=== PATIENT | female | born 1955 | race Caucasian/White ===

== ENCOUNTER 2019-07-26 09:59 | Outpatient (CLI) | payer OTHER, SELFPAY ==
--- NOTE | ~2019-07-26 | US_ITS ---
EXAMINATION: US right upper quadrant DATE: 07/26/2019 10:32 INDICATION: Right upper quadrant abdominal pain. TECHNIQUE: Multiple grayscale and Doppler ultrasound images of the abdomen were obtained. COMPARISON: Ultrasound 11/16/2013 FINDINGS: The visualized portions of the head and body of the pancreas are normal. The liver is riana l without focal lesion. There is normal flow in main portal vein. The gallbladder is normal in size. No gallstones or gallbladder wall thickening. There was no sonographic Novak sign. The common duct i s mildly dilated at 7 mm. IMPRESSION: 1. Mildly dilated common duct. Reviewed, dictated and finalized at location A.
== END 2019-07-26 10:00 | disposition home or self-care (01) ==
PROVIDERS: PCP Family Medicine; Visit Provider Family Medicine
DX: R10.11 Right upper quadrant pain (principal)
CPT/HCPCS: 76705

== ENCOUNTER 2019-09-29 19:15 | Emergency (ER) | payer OTHER, SELFPAY ==
--- NOTE | ~2019-09-29 | CT_ITS ---
EXAMINATION: CT BRAIN W/O DATE: 09/29/2019 19:46 INDICATION: Headache. Hypertension. TECHNIQUE: Computed tomography (CT) of the head was performed without intravenous contrast. The dose- length product was 605.33 mGy-cm. The mA was adjusted according to patient size. Iterative reconstruc tion technique was employed. COMPARISON: No prior studies for comparison. FINDINGS: Normal brain parenchymal volume for age. Normal mayorga-white differentiation. No acute intrac ranial hemorrhage, infarction, mass or mass effect. No ventriculomegaly or midline shift. Midline sagittal images demonstrate a normal corpus callosum, c raniovertebral junction and sella turcica. Basilar cisterns are patent. Paranasal sinuses and mastoids are pneumatized. No depressed skull fractures. IMPRESSION: 1. No acute intracranial abnormality. Reviewed, dictated and finalized at location A.
[2019-09-29 19:21] VITALS: BP 153/81; PULSE 78; RESP 18; TEMP 36.3; O2SAT 100
--- NOTE | 2019-09-29 19:36 | ED.RECABL ---
HPI - Recheck/Abnormal Lab/Rx General Chief Complaint: Recheck/Abnormal Lab/Rx Stated Complaint: high blood pressure Time Seen by Provider: 09/29/19 19:30 Source: RN notes reviewed History of Present Illness HPI narrative: Patient presents emergency room from home for hypertension. Patient states that her blood pressures been running high over the last week and had recently been instructed to increase her losartan from 50 mg to 100 mg that she took the last dose of last night and is due for her dose this evening at this time. She states at home this evening she noted that her blood pressure is elevated and she noted a mild headache. She called Dr. Stallworth for Dr. Vázquez who is her it sales representative and had also been given a prescription of amlodipine 5 mg which she is to start tomorrow. Patient denies any vision changes numbness or tingling in the extremities chest pain shortness of breath abdominal pain nausea vomiting or any other symptoms Related Data Allergies Allergy/AdvReac Type Severity Reaction Status Date / Time hydrochlorothiazide Allergy Mild Unknown Verified 09/29/19 19:34 triamterene Allergy Mild Unknown Verified 09/29/19 19:34 Antihistamines - Alkylamine Allergy Unknown Unknown Verified 09/29/19 19:34 cefuroxime Allergy Unknown Unknown Verified 09/29/19 19:34 ciprofloxacin Allergy Unknown Unknown Verified 09/29/19 19:34 codeine Allergy Unknown Nausea and Verified 09/29/19 19:34 Vomiting nitrofurantoin Allergy Unknown Unknown Verified 09/29/19 19:34 Penicillins Allergy Unknown Hives Verified 09/29/19 19:34 Review of Systems Review of Systems: Narrative: Gen.: Denies fevers or chills Eyes: Denies eye pain or visual change ENT: Denies congestion Respiratory: Denies shortness of breath or cough CV: Denies chest pain or palpitations GI: Denies abdominal pain nausea, emesis or diarrhea Musculoskeletal: Denies back pain or muscle pain Neuro: See HPI Skin: Denies rash Except as documented, all other systems reviewed and negative [facility] Past Medical History Medical History (Updated 09/29/19 @ 22:33 by Shakeel Garcia DO) Hypertension Family History Family History (Updated 10/25/13 @ 07:13 by DOCTOR UNKNOWN) Grandparent Carcinoma of colon Family history of lung cancer Mother Family history of congestive heart failure Other Cerebrovascular accident Family history of coronary artery disease Hypertension Social History Social History Smoking status: Former smoker Second hand tobacco smoke exposure: No Alcohol intake: current Exam Narrative: Exam Narrative: APPEARANCE: No acute distress, nontoxic, resting in bed EYES: EOMI HEENT: Normocephalic, atraumatic, OMM RESPIRATORY: No respiratory distress Clear to auscultation bilaterally with no rhonchi wheezing or rales. CARDIOVASCULAR: Regular rate and rhythm without murmurs rubs or gallops. ABDOMINAL: Soft, nontender, nondistended, no rebound or guarding MUSCULOSKELETAl: Moves all extremities. No clubbing, cyanosis or edema. NEURO: Awake and alert x 3. Following commands, speech normal, no focal deficits SKIN:: Warm, dry. No rashes lesions or abrasions PSYCHIATRIC: Normal affect/mood, Course Course Emergency Course: Called and discussed with Dr. Puckett presentation work-up. Sent Dr. 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 Discussed need for follow-up with primary care, proper use of medication, and reasons to return to the emergency department. Patient understands and agrees to current treatmen
[2019-09-29] MEDS: LOSARTAN POTASSIUM 100 MG TABLET PO (20:14)
[2019-09-29 20:29] LABS: Basophils Percent Auto 0.2 % (0.2-1.2); Eosinophils Absolute Auto 0.1 K/mm3 (0-0.3); Eosinophils Percent Auto 1.6 % (0-4.4); Hematocrit 44.4 % (37.0-47.0); Immature Granulocyte Absolute 0.02 K/mm3 (0.00-0.031); Immature Granulocyte Percent A 0.2 % (0-0.5); Lymphocytes Absolute Auto 1.08 K/mm3 (0.9-3.2); Mean Corpuscular HGB Conc 33.8 g/dl (32-36); Mean Corpuscular Hemoglobin 31.6 pg (26-34); Mean Corpuscular Volume 93.7 fl (80-100); Mean Platelet Volume 9.5 fl (7.4-10.4); Monocytes Absolute Auto 0.8 K/mm3 (0.1-0.6); Monocytes Percent Auto 9.6 % (2.6-8.5); Neutrophils Absolute Auto 6.3 K/mm3 (1.3-6.7); Neutrophils Percent Auto 75.4 % (45.5-73.1); Platelet Count Result 181 k/mm3 (150-375); Red Blood Count 4.74 M/mm3 (4.2-5.4); White Blood Count 8.3 K/mm3 (4.5-10.0)
[2019-09-29 20:35] VITALS: BP 175/86; PULSE 63; RESP 18; O2SAT 97
[2019-09-29 20:42] LABS: Alanine Aminotransferase 23 U/L (4-35); Albumin Level 4.4 g/dL (3.5-5.1); Alkaline Phosphatase 81 U/L (38-126); Aspartate Amino Transferase 27 U/L (14-36); Bilirubin,Total 0.5 mg/dL (0.2-1.3); Blood Urea Nitrogen 13 mg/dL (7-17); Calcium 9.6 mg/dL (8.4-10.2); Carbon Dioxide 28 mmol/L (22-30); Chloride 95 mmol/L (98-107); Estimated CRCL calculation 69 ml/min; Estimated Glomerular Filt Rate > 60; Glucose 119 mg/dL (65-105); Sodium 132 mmol/L (137-145)
[2019-09-29 21:17] VITALS: BP 169/79; PULSE 64; RESP 16; O2SAT 97
[2019-09-29 21:17] LABS: Add Urine Microscopic? YES; Appearance Urine Clear (Clear); Bacteria Urine Trace /hpf; Bilirubin Urine Negative (Negative); Blood Urine 1+ (Negative); Color Urine Straw (Yellow); Glucose Urine UA Negative (Negative); Ketones Urine Negative (Negative); Leukocyte Esterase Ur Negative LEU/UL (Negative); Nitrate Urine Negative (Negative); Protein Urine Negative (Negative); RBC Urine 0-2 /hpf (0-2); Specific Grav Ur 1.011 (1.001-1.035); Urobilinogen Urine Negative mg/dL (<2.0); WBC Urine 0-3 /hpf
--- NOTE | 2019-09-29 21:28 | ECG_ITS ---
Measurements Intervals [place] Rate: 56 P: [place]: 0 QRS: 73 QRSD: 105 T: 48 QT: 418 QTc: 405 Interpretive Statements SINUS RHYTHM WITH MARKED FIRST DEGREE AV BLOCK NON-CONDUCTED ATRIAL PREMATURE COMPLEX INCOMPLETE RIGHT BUNDLE BRANCH BLOCK BORDERLINE R WAVE PROGRESSION, ANTERIOR LEADS ABNORMAL ECG Electronically Signed On 09-30-2019 7:32:40 CDT by Antonio Lemus D.O.
[2019-09-29 21:55] VITALS: BP 155/87; PULSE 57; O2SAT 99
[2019-09-29 23:07] VITALS: BP 150/71; PULSE 58; RESP 16; O2SAT 96
== END 2019-09-29 23:08 | disposition home or self-care (01) ==
PROVIDERS: Emergency Provider Emergency Medicine; PCP Family Medicine
DX: I10 Essential (primary) hypertension (principal); I44.1 Atrioventricular block, second degree; Z87.891 Personal history of nicotine dependence; I45.10 Unspecified right bundle-branch block
CPT/HCPCS: 36415; 70450; 80053; 81001; 85025; 93005; 99284; A9270

== ENCOUNTER 2020-01-02 08:21 | Outpatient (CLI) | payer MEDICARE, SELFPAY ==
--- NOTE | 2020-01-28 08:48 | WPDHOMESLEEP ---
Sleep Study - Home Unattended Date of Study: 01/02/20 Ordering Provider: Kale Vázquez MD Interpreting Physician: Kandy Stokes MD Home Sleep Study Type: Apnea Link Air Height: 1.63 m Weight: 73.028 kg Body Mass Index: 27.6 [place]: 11 Reason for Sleep Study excessive daytime sleepiness Sleep History Janet Loo is a 64 year old female who has restless sleep. It takes a very long time to fall asleep, she wakes up easily during the night and it difficult for her to return to sleep. She has coughing, nasal stuffiness and frequent loud snoring. She frequently awakens at night with heartburn, belching and coughing. She occasionally awakens from sleep feeling short of breath. She has had a monitor overnight that showed a heart rate dropping to 30. She frequently has trouble sleeping with a cold. She rarely gasps for breath at night. She freely has breathing problems at night observed by others. She occasionally sweats excessively at night and notices her heart pounding or beating irregularly at night. She does not fall asleep during the day, involuntarily, while driving or during physical effort. She rarely has loss of muscle tone with strong emotion. She does not have daytime difficulties due to excessive sleepiness. She does not feel paralyzed on waking or falling asleep. She occasionally has vivid dreamlike scenes upon awakening or falling asleep. She is not afraid to go to sleep. She occasionally has nightmares. She occasionally remembers her dreams. She frequently has racing thoughts. She occasionally feels sad or depressed. She frequently feels anxious. She frequently has muscular tension. She rarely notices parts of her body jerking. She does not kick during the night. She does not have crawling or aching feelings in her legs at night. She frequently has leg pain at night. She does not have morning jaw pain. She frequently grinds her teeth during sleep. She occasionally has bothered by pain during the day, frequently awakened by pain at night. She occasionally wakes up feeling stiff in the morning. She frequently wakes up with sore achy muscles. She occasionally wakes up with pain in the neck and spine. She has palpitations, bowel disturbances, dizziness, stomach problems, fatigue and tremors. Normal bedtime is 9:00 p.m., taking 15-45 minutes to fall asleep, waking 1 or 2 times. While awake she will use the bathroom and get a drink of water. It takes her 30 minutes to an hour to fall asleep again. She wakes up at 7 in the morning. She estimates 8 hours of sleep at night. Weekend schedule is similar. She does not take naps. a short nap is not refreshing. She is drowsy in the morning for 1 hour or longer. Habits: Smoked tobacco 15 years ago. No caffeine or recreational drugs. Alcohol is used. [facility] Past Medical History Medical History (Updated 01/28/20 @ 09:01 by Kandy Stokes MD) Anxiety Emphysema of lung History of breast cancer Hypertension Hypothyroidism Surgical History Surgical History (Updated 01/28/20 @ 08:56 by Kandy Stokes MD) History of partial thyroidectomy Hx of tonsillectomy Status post right breast lumpectomy Family History Family History Grandparent Carcinoma of colon Family history of lung cancer Mother Family history of congestive heart failure Other Cerebrovascular accident Family history of coronary artery disease Hypertension Social History Social History Smoking status: Former smoker Second hand tobacco smoke exposure: No Alcohol intake: current Medications Medications: losartan 100 mg a day amlodipine 5 mg a day vitamin D3 2000 units, 2 tablets daily magnesium oxide 250 mg daily vitamin B complex cranberry Symbicort 160/4.5 2 puffs twice a day Sleep Procedure This test was performed using 4 channel monitoring inc
[2020-01-28 09:04] VITALS: BMI 27.6
== END 2020-01-02 08:22 | disposition home or self-care (01) ==
LOC: ANHCSM 08:22
PROVIDERS: PCP Family Medicine; Visit Provider Internal Medicine Cardiovascular Disease
DX: G47.33 Obstructive sleep apnea (adult) (pediatric) (principal); G47.10 Hypersomnia, unspecified; R06.83 Snoring; I10 Essential (primary) hypertension; I51.89 Other ill-defined heart diseases; I44.30 Unspecified atrioventricular block; J43.9 Emphysema, unspecified; E03.9 Hypothyroidism, unspecified; Z85.3 Personal history of malignant neoplasm of breast; F41.9 Anxiety disorder, unspecified
CPT/HCPCS: 95806

== ENCOUNTER 2020-02-21 09:36 | Outpatient (NON) | payer MEDICARE, SELFPAY ==
[2020-02-21 17:51] LABS: SARS-CoV-2 RNA PCR Positive
== END 2020-02-21 09:37 ==
LOC: ANHCOVIDDT 09:37
PROVIDERS: PCP Family Medicine; Visit Provider Family Medicine
DX: U07.1 COVID-19 (principal)
CPT/HCPCS: 87635; C9803; U0003

== ENCOUNTER 2022-06-01 08:07 | Outpatient (CLI) | payer MEDICARE, SELFPAY ==
--- NOTE | ~2022-06-01 | US_ITS ---
EXAMINATION: US art doppler w press LE BI DATE: 06/01/2022 09:56 INDICATION: Peripheral arterial disease. TECHNIQUE: Segmental pressures and plethysmographic and Doppler waveforms of the brachial and lower e xtremity arteries were obtained. COMPARISON: None. FINDINGS: Right and left brachial artery pressures of 162 mm Hg and 163 mm Hg, respectively, are concordant (no rmal difference <= 30 mmHg). The right thigh pressures could not be measured due to inability to cuff occlude the arteries. The ri t ankle-brachial index (ALLIE) is 1.17 (normal >= 0.9-1.0). The right great toe-brachial index (TBI) is 0.59 (normal >= 0.65). Arterial Doppler waveforms are biphasic from common femoral artery to the a nkle. The left low-thigh pressure index is 1.17. The left ALLIE could not be measured due to inability to cuf f occlude the arteries. The left TBI is 0.58. Arterial Doppler waveforms are at least triphasic in co mmon femoral artery and biphasic from superficial femoral artery to the ankle. IMPRESSION: 1. Mildly decreased bilateral TBIs, normal right ALLIE, and nondiagnostic left ALLIE, consistent with art erial occlusive disease. Reviewed, dictated and finalized at location A. IMPRESSION: 1. Mildly decreased bilateral TBIs, normal right ALLIE, and nondiagnostic left AB I, consistent with arterial occlusive disease.
== END 2022-06-01 08:08 | disposition home or self-care (01) ==
PROVIDERS: PCP Family Medicine; Visit Provider Internal Medicine Cardiovascular Disease
DX: I73.9 Peripheral vascular disease, unspecified (principal); M79.604 Pain in right leg; M79.605 Pain in left leg; Z87.891 Personal history of nicotine dependence
CPT/HCPCS: 93923

== ENCOUNTER 2022-08-09 11:26 | Inpatient (IN) | payer MEDICARE, SELFPAY ==
[2022-08-09] VITALS (25 sets, daily range): BP systolic 141–182; BP diastolic 56–82; PULSE 37–73; RESP 14–26; TEMP 36.4; O2SAT 93–98
--- NOTE | ~2022-08-09 | XR_ITS ---
EXAMINATION: XR chest 2V DATE: 08/12/2022 08:57 INDICATION: Pacer placement. TECHNIQUE: Frontal and lateral views of the chest were obtained. COMPARISON: Chest one view 08/11/2022, chest 2 views 08/09/2022 FINDINGS: There is mild scarring at the lung apices. There is mild atelectasis at the lung bases. The re are tiny pleural effusions. No pneumothorax. The heart size is normal. There is a left chest wall pacer with leads in the right atrium and right ventricle. There are surgical clips in left neck. IMPRESSION: 1. Mild scarring at the lung apices and mild atelectasis at the lung bases. 2. Tiny pleural effusions. Reviewed, dictated and finalized at location A.
--- NOTE | ~2022-08-09 | XR_ITS ---
XR chest 2V 08/09/2022 11:45 Indication: Hypertension. Chronic cough. Procedure: 2 view chest Comparison: 03/26/2010 Findings: There is apical pleural thickening/scarring. Heart size normal. There are calcified granulo mas in the right lung base. No focal air space disease, pulmonary edema, pleural effusion or suspecte d pneumothorax. Impression: 1: No acute cardiopulmonary disease. Reviewed, dictated and finalized at location [] Impression: 1: No acute cardiopulmonary disease.
--- NOTE | ~2022-08-09 | XR_ITS ---
XR chest 1V portable 08/11/2022 19:12 Indication: Chest pain. Post pacemaker placement. Procedure: AP portable chest Comparison: Comparison to multiple prior studies sequentially, with oldest reviewed study dated 02/2007. Findings: Heart size normal. No focal air space disease, pulmonary edema, pleural effusion or suspect ed pneumothorax. Bipolar pacemaker leads are in expected position. Chronic apical pleural thickening/ scarring. Impression: 1: No acute cardiopulmonary disease. Reviewed, dictated and finalized at location L. Impression: 1: No acute cardiopulmonary disease.
--- NOTE | 2022-08-09 11:28 | ECG_ITS ---
Measurements Intervals [place] Rate: 48 P: [place]: 0 QRS: 88 QRSD: 104 T: 66 QT: 407 QTc: 364 Interpretive Statements SINUS RHYTHM WITH INTERMITTENT PROBABLE SECONDARY AV BLOCK TYPE 1 AND OCCASIONAL JUNCTIONAL ESCAPE BEATS POSSIBLE ANTERIOR MYOCARDIAL INFARCTION , PROBABLY OLD ABNORMAL ECG COMPARED TO ECG 09/29/2019 21:34:19 INTERMITTENT JUNCTIONAL ESCAPE BEATS ARE APPRECIATED Electronically Signed On 08-09-2022 17:11:11 CDT by Anjum Sauceda M.D.
[2022-08-09 11:51] LABS: Basophils Percent Auto 0.4 % (0.2-1.2); Eosinophils Absolute Auto 0.1 K/mm3 (0-0.3); Eosinophils Percent Auto 1.1 % (0-4.4); Hematocrit 47.3 % (37.0-47.0); Hemoglobin 15.1 g/dL (12.0-15.0); Immature Granulocyte Absolute 0.02 K/mm3 (0.00-0.031); Immature Granulocyte Percent A 0.3 % (0-0.5); Lymphocytes Absolute Auto 0.94 K/mm3 (0.9-3.2); Mean Corpuscular HGB Conc 31.9 g/dl (32-36); Mean Corpuscular Hemoglobin 30.6 pg (26-34); Mean Corpuscular Volume 95.9 fl (80-100); Mean Platelet Volume 9.4 fl (7.4-10.4); Monocytes Absolute Auto 0.5 K/mm3 (0.1-0.6); Monocytes Percent Auto 7.2 % (2.6-8.5); Neutrophils Absolute Auto 5.6 K/mm3 (1.3-6.7); Platelet Count Result 199 k/mm3 (150-375); Red Blood Count 4.93 M/mm3 (4.2-5.4); Red Cell Distribution Width 12.8 % (11.5-14.5); White Blood Count 7.2 K/mm3 (4.5-10.0)
[2022-08-09 12:00] LABS: Alanine Aminotransferase 21 U/L (6-35); Albumin Level 4.6 g/dL (3.5-5.1); Alkaline Phosphatase 69 U/L (38-126); Anion Gap 3 mmol/L (8-16); Aspartate Amino Transferase 24 U/L (14-36); Bilirubin,Total 0.7 mg/dL (0.2-1.3); Blood Urea Nitrogen 10 mg/dL (7-17); Calcium 9.5 mg/dL (8.4-10.2); Carbon Dioxide 33 mmol/L (22-30); Chloride 96 mmol/L (98-107); Estimated CRCL calculation 66 ml/min; Estimated Glomerular Filt Rate > 60; Glucose 136 mg/dL (65-110); Lipase 57 U/L (23-300); Potassium 4.7 mmol/L (3.4-5.0); Sodium 132 mmol/L (137-145)
[2022-08-09 12:08] LABS: Prothrombin Time 13.5 Seconds (11.1-14.7)
[2022-08-09 12:09] LABS: Partial Thromboplastin Time 27.8 SECONDS (22.3-36.8)
[2022-08-09 12:12] LABS: Troponin I < 0.012 ng/mL (0.000-0.034)
[2022-08-09 15:16] LABS: Troponin I < 0.012 ng/mL (0.000-0.034)
[2022-08-09] MEDS: ACETAMINOPHEN 500 MG TABLET 1000 MG PO (15:47)
[2022-08-09] MEDS: LORazepam (*CRX) 0.5 MG TABLET PO (15:47)
--- NOTE | 2022-08-09 17:48 | ED.GENADULT ---
HPI - General Adult General Chief complaint: Arrhythmia/Palpitations <Doni Rojo MD - Last Filed: 08/09/22 18:18> Stated complaint: blood pressure and hr problems <Doni Rojo MD - Last Filed: 08/09/22 18:18> Time Seen by Provider: 08/09/22 12:14 <Doni Rojo MD - Last Filed: 08/09/22 18:18> Source: patient and family <Doni Rojo MD - Last Filed: 08/09/22 18:18> Mode of arrival: ambulatory <Doni Rojo MD - Last Filed: 08/09/22 18:18> Limitations: no limitations <Doni Rojo MD - Last Filed: 08/09/22 18:18> History of Present Illness HPI narrative: 66-year-old with a history of hypertension here with complaints of intermittent palpitations, elevated blood pressure, occasional dizziness for past 1 week. Patient states her blood pressure has been high and she has been taking her medication as prescribed. She denies any shortness of breath, fever or chills. She states that she has occasional chest pain radiating into her neck none at this time. She endorses Dr. Vázquez has her furnace converter <Doni Rojo MD - Last Filed: 08/09/22 18:18> Onset (ago): week(s) (1) <Doni Rojo MD - Last Filed: 08/09/22 18:18> Severity: moderate <Doni Rojo MD - Last Filed: 08/09/22 18:18> Pain Consistency: intermittent <Doni Rojo MD - Last Filed: 08/09/22 18:18> Exacerbating factors: none <Doni Rojo MD - Last Filed: 08/09/22 18:18> Associated symptoms: chest pain <Doni Rojo MD - Last Filed: 08/09/22 18:18> Related Data Home medications: Home Medications Medication Instructions Recorded Confirmed amlodipine 5 mg tablet 5 mg PO DAILY 06/29/21 cholecalciferol (vitamin D3) 25 25 mcg PO DAILY 06/29/21 mcg (1,000 unit) capsule cranberry 500 mg capsule 500 mg PO ONCE 06/29/21 losartan 100 mg tablet 100 mg PO DAILY 06/29/21 magnesium 250 mg tablet 250 mg PO DAILY 06/29/21 spironolactone 25 mg tablet 25 mg PO DAILY 06/29/21 (Aldactone) <Doni Rojo MD - Last Filed: 08/09/22 18:18> Allergies/adverse reactions: Allergies Allergy/AdvReac Type Severity Reaction Status Date / Time hydrochlorothiazide Allergy Mild Unknown Verified 07/29/21 12:52 triamterene Allergy Mild Unknown Verified 07/29/21 12:52 Antihistamines - Alkylamine Allergy Unknown Unknown Verified 07/29/21 12:52 cefuroxime Allergy Unknown Unknown Verified 07/29/21 12:52 ciprofloxacin Allergy Unknown Unknown Verified 07/29/21 12:52 nitrofurantoin Allergy Unknown Unknown Verified 07/29/21 12:52 Penicillins Allergy Unknown Hives Verified 07/29/21 12:52 codeine AdvReac Unknown Nausea and Verified 08/09/22 11:32 Vomiting <Doni Rojo MD - Last Filed: 08/09/22 18:18> Review of Systems Review of Systems: All systems reviewed & are unremarkable except as noted in HPI and below <Doni Rojo MD - Last Filed: 08/09/22 18:18> Constitutional: Constitutional: Reports no additional constitutional complaints <Doni Rojo MD - Last Filed: 08/09/22 18:18> Eyes: Eyes: Reports no additional eye complaints <Doni Rojo MD - Last Filed: 08/09/22 18:18> ENT: Reports system reviewed and no additional complaints, except as documented <Doni Rojo MD - Last Filed: 08/09/22 18:18> Cardiovascular: Cardiovascular: Reports as per HPI <Doni Rojo MD - Last Filed: 08/09/22 18:18> Respiratory: Respiratory: Reports no additional respiratory complaints <Doni Rojo MD - Last Filed: 08/09/22 18:18> Gastrointestinal: Gastrointestinal: Reports no additional gastrointestinal complaints <Doni Rojo MD - Last Filed: 08/09/22 18:18> Musculoskeletal: Musculoskeletal: Reports no additional musculoskeletal complaints <Doni Rojo MD - Last Filed: 08/09/22 18:18> Integumentary/Breasts: Skin/Breast: Reports system reviewed and no additional complaints, except as docu <Doni Rojo MD - Last Filed: 08/09/22 18:18>
[2022-08-09 18:12] LABS: Troponin I < 0.012 ng/mL (0.000-0.034)
[2022-08-09] MEDS: ASPIRIN 81 MG ENTERIC TABLET PO (21:18)
[2022-08-09] MEDS: LOSARTAN POTASSIUM 100 MG TABLET PO (21:18)
--- NOTE | 2022-08-09 21:21 | PC.NURSE ---
Pt moved to room 1, hospital bed placed in room for pt comfort.
[2022-08-10] VITALS (70 sets, daily range): BP systolic 140–175; BP diastolic 55–84; PULSE 35–71; RESP 13–27; TEMP 36.2–36.6; O2SAT 91–99; BMI 64.3
[2022-08-10] MEDS: ACETAMINOPHEN 500 MG TABLET 1000 MG PO (02:20)
--- NOTE | 2022-08-10 02:20 | PC.NURSE ---
AT 0220 ON 08/10/2022 PT ADMINISTERED 1000 MG BY THIS NURSE ORDERED, BUT UNABLE TO CHART ON E-MAR. PHARMACY MADE AWARE.
--- NOTE | 2022-08-10 07:09 | PC.NURSE ---
Patient report received from RODGER Nieto. All questions answered and care of patient assumed.
--- NOTE | 2022-08-10 09:07 | ECG_ITS ---
Measurements Intervals [place] Rate: 54 P: [place]: 0 QRS: 79 QRSD: 97 T: 29 QT: 415 QTc: 395 Interpretive Statements SINUS BRADYCARDIA WITH FIRST DEGREE AVB WITH INTERMITTENT JUNCTIONAL BEATS PREMATURE VENTRICULAR CONTRACTION ABNORMAL RHYTHM ECG COMPARED TO ECG 08/09/2022 11:29:30 NO SIGNIFICANT CHANGES Electronically Signed On 08-10-2022 17:06:58 CDT by Thomas Gonsales M.D.
--- NOTE | 2022-08-10 10:45 | ADMGEN ---
This patient, Janet Loo, was admitted to IMU Room 210-01. Patient/family oriented to hospital policies and general routines including ID bracelet, bed and alarms, visiting hours, pain management, procedures, bathroom and other care routines, personal items, smoking policy, room service/diet, and visiting hours. Information on how to activate the Rapid Response Team has been discussed. Patient/Family are encouraged to report perceived risks to care and to ask questions if they do not understand what they are told or what they should do.
--- NOTE | 2022-08-10 12:39 | ECG_ITS ---
Measurements Intervals [place] Rate: 40 P: [place]: 0 QRS: 86 QRSD: 102 T: 35 QT: 436 QTc: 359 Interpretive Statements SINUS BRADYCARDIA WITH SINUS BEAT FOLLOWED BY NON-CONDUCTED P-WAVE (CANNOT RULE OUT 2:1 AVB) FOLLOWED BY JUNCTIONAL BEAT FOLLOWED BY SINUS BEAT WITH PROLONGED FIRST-DEGREE AVB ABNORMAL RHYTHM ECG COMPARED TO ECG 08/10/2022 09:21:41 NO SIGNIFICANT CHANGES Electronically Signed On 08-10-2022 17:19:17 CDT by Thomas Gonsales M.D.
--- NOTE | 2022-08-10 15:14 | PM.IMHP ---
H&P: HPI History of Present Illness Date/Time: 08/10/22 15:45 Chief Complaint: High blood pressure, palpitations, low heart rate. Narrative: This is a very pleasant 66-year-old female with history of hypertension, peripheral arterial disease by previous lower extremity Dopplers, diastolic dysfunction, breast cancer status post chemoradiation and lumpectomy, partial thyroidectomy for benign nodule, and obstructive sleep apnea treated with mandibular advancement device who presented to the emergency department yesterday morning via private vehicle for evaluation of palpitations, elevated blood pressure, and low heart rate. The patient provides the following history. She has not been feeling well for upwards of a week with occasional dull headaches which seem to correlate with a rise in blood pressure, as high as 180s systolic (blood pressures are typically well controlled and are in the 120s systolic). She has occasional palpitations and reports that she can feel her heart beating slowly. In fact she has noted her heart rate be as low as 29 beats per minute while taking her blood pressure. She denies overt dizziness but she has had episodes where she feels a bit off. She denies syncope, near syncope, chest pain, shortness of breath, nausea, vomiting, and sweats. She is not on any AV tristen blocking agents and she has not had any recent change in medications. She had a partial thyroidectomy years ago for benign nodule and she was on levothyroxine for brief period of time and to her knowledge her TSH has been well within normal limits without medication. EKG on arrival was read as a sinus rhythm with intermittent probable secondary AV block and occasional junctional escape beats. At time she appears to have intermittent 1st and second-degree AV block as well. Blood pressures have ranged anywhere from the 140s to 160s systolic and her heart rate has been running in the mid to upper 30s to low 60s. At the time my evaluation she is feeling okay as long as she is not up and moving and she has no current complaints. Review of Systems Review of Systems: Twelve systems were reviewed and are negative except for as per HPI. [facility] Past Medical History Medical History (Updated 08/10/22 @ 20:42 by Camille Martínez PA-C) Anxiety Emphysema of lung History of right breast cancer Status post lumpectomy and chemoradiation. Hypertension Hypothyroidism Obstructive sleep apnea Uses a mandibular advancement device. Osteopenia Peripheral arterial disease Evidence of at least mild peripheral tibial disease on arterial Dopplers taken in May 2022. Surgical History Surgical History History of dilation and curettage (01/2000) Benign uterine and endocervical polyps. History of endometrial ablation (03/2001) History of lumpectomy of right breast (10/05/07) History of partial thyroidectomy (06/2004) History of tonsillectomy (1957) History of tubal ligation (1978) Family History Family History Grandparent Family history of lung cancer Carcinoma of colon Acute myocardial infarction Mother Family history of congestive heart failure Congestive heart failure Family history of atrial fibrillation Asthma Hypertension Sibling Family history of liver cancer Sibling Family history of melanoma Social History Social History Social History: Surrogate medical decision maker: Zbigniew Encarnacion, spouse. Code status: Full code. Smoking packs per day: 0.5 Smoking cigarettes per day: 10.0 Years smoked: 20 Smoking pack-years: 10.00 Smoking status: Former smoker Tobacco type: cigarettes Second hand tobacco smoke exposure: No Additional smoking assessment comments: Quit in 2005. Alcohol intake: never Substance use: never Lack of Transportation: No Lack of Food: Never
--- NOTE | 2022-08-10 16:24 | PM.CNCAR ---
Assessment and Plan Assessment and plan (1) Symptomatic bradycardia: Code(s): R00.1 - Bradycardia, unspecified Status: Acute Assessment and Plan: Patient presents with symptomatic bradycardia with intermittent junctional escape, first-degree AV block, second-degree AV block possibly type 2 as well as type 1. While I cannot exclude brief periods of possible AV dissociation this has not been a persistent finding by ECG or telemetry thus far. However, patient is clearly symptomatic with heart rate dropped without a treatable, secondary identifiable or reversible causes. She is not on AV tristen blocking agents, she does not have significant electrolyte abnormalities which would explain her symptoms and her thyroid is normal a 2.7. She is not suffering from acute myocardial infarction but it is evident by comparison to prior ECGs she has had progression of underlying conduction system disease and meets criteria for permanent pacemaker implantation. She is hemodynamically stable but has lifestyle limiting symptoms clearly associated with bradycardia and concern for intermittent higher grade AV block. We discussed management options, pathophysiology, and the risks, benefits alternatives to permanent pacemaker implantation. She verbalized understanding and agreed with plan of care. Will plan for pacemaker implantation this hospitalization. There is no need for temporary transvenous pacemaker wire at this time unless she develops persistent or severe symptomatic bradycardia, pathologic pauses or complete heart block, and/or hemodynamic instability. Will discuss with my partners with regards to timing for pacemaker implantation. Continue telemetry. Absolutely no AV tristen blocking agents. Monitor electrolytes and renal function. 2D echocardiogram to assess LV size/function, LV wall thickness, valve pathology pulmonary pressures. Plan for dual chamber pacemaker implantation. DVT prophylaxis I spent 84 minutes in the care of this patient including very lengthy discussions at bedside, examination, discussion with nursing staff, hospitalist service, chart review, medical decision-making, and documentation. (2) High-grade atrioventricular block: Code(s): I44.39 - Other atrioventricular block Status: Acute Assessment and Plan: As above, avoid all AV tristen blocking agents for intermittent high-grade AV block. No identifiable treatable reversible cause thus far. Pacemaker is warranted. (3) Hypertension: Code(s): I10 - Essential (primary) hypertension Status: Acute Assessment and Plan: Blood pressure remains elevated but is stable generally 140s-160s. Avoid symptomatic hypotension. Losartan 100 mg daily and spironolactone 20 mg daily have been resumed. (4) Peripheral arterial disease: Code(s): I73.9 - Peripheral vascular disease, unspecified Status: Acute Assessment and Plan: Discussed at length. As evidence by 05/2022 arterial Doppler she has at least mild peripheral arterial disease which aspirin 81 mg daily and statin therapy previously were devised. She had declined statin therapy. We discussed the risks and benefits in this regard. Continue aspirin 81 mg daily for now. She will consider my recommendations and follow-up with Dr. Vázquez as an outpatient. History of Present Illness History of Present Illness Consult date/time: Date of service: 08/10/22 16:24 Requesting physician: Camille Martínez PA-C Consult reason: Other (Symptomatic bradycardia) Reason For Visit: [facility] Narrative: Patient is a very pleasant 66-year-old female with past medical history significant diastolic dysfunction, hypertension, peripheral arterial disease by lower extremity Doppler history of tobacco abuse, history of breast cancer status post chemotherapy and radiation and lumpectomy, history of partial thyroidectomy who presented emergency department for complaints of symptomatic low heart rat
[2022-08-10] MEDS: CHOLECALCIFEROL 1,000 UNITS TABLET 1000 UNITS PO (20:49)
[2022-08-10] MEDS: LOSARTAN POTASSIUM 100 MG TABLET PO (20:49)
[2022-08-10] MEDS: MAGNESIUM 13.5 MG TABLET (250 MG MAG GLUCONATE) PO (20:49)
[2022-08-10] MEDS: ALPRAZolam (*CRX) 0.125 MG TABLET PO (22:06)
[2022-08-10] MEDS: ASPIRIN 81 MG ENTERIC TABLET PO (22:06)
[2022-08-11] VITALS: PULSE 35; RESP 20; O2SAT 99
--- NOTE | 2022-08-11 08:00 | ECG_ITS ---
Measurements Intervals [place] Rate: 38 P: MT: 0 QRS: 87 QRSD: 106 T: 35 QT: 450 QTc: 362 Interpretive Statements SINUS BRADYCARDIA WITH FIRST-DEGREE AV BLOCK INTERMITTENT SECOND-DEGREE BLOCK POSSIBLE TYPE 1 WITH 2:1 AVB AND JUNCTIONAL ESCAPE BEATS BASELINE ARTIFACT INCOMPLETE RIGHT BUNDLE BRANCH BLOCK ABNORMAL ECG INTERPRETATION BASED ON A DEFAULT AGE OF 40 YEARS COMPARED TO ECG 08/10/2022 13:04:48 NO SIGNIFICANT CHANGE Electronically Signed On 08-11-2022 11:56:13 CDT by Anjum Sauceda M.D.
--- NOTE | 2022-08-11 08:00 | ECHO_ITS ---
Patient Info Name: Janet Loo Age: 66 years : 1955 Gender: Female Accession #: $[id number]$ Ht: 64 in Wt: 159 lbs BSA: 1.82 m2 HR: 42 bpm Heart Rhythm: Indeterminant, Bradycardia Technical Quality: Fair Exam Date: 08/11/2022 9:37 AM Exam Location: [facility] ([place]) Card Pulmonary Admit Date: 08/10/2022 BP unable to obtain due to: IV Exam Type: CA echo doppler color flow Study Info Indications - heart block/ bradaycardia Complete two-dimensional, color flow and Doppler transthoracic echocardiogram is performed. Summary 1. Complete two-dimensional, color flow and Doppler transthoracic echocardiogram is performed. 2. Left ventricular chamber dimension is normal. 3. Left ventricular systolic function is normal, estimated at 60-65%. 4. There is no increased left ventricular wall thickness. 5. The left ventricular diastolic function is abnormal. 6. Left atrial chamber dimension is mildly enlarged. 7. There is no aortic valve stenosis. 8. There is trace mitral valve regurgitation. 9. There is trace tricuspid valve regurgitation. 10. No pulmonary hypertension, estimated pulmonary arterial systolic pressure is 8 mmHg. Left Ventricle Left ventricular chamber dimension is normal. Left ventricular systolic function is normal, estimated at 60-65%. There is no increased left ventricular wall thickness. The left ventricular diastolic function is abnormal. Right Ventricle Right ventricular chamber dimension is normal. Right ventricular systolic function is normal. Left Atria Left atrial chamber dimension is mildly enlarged. Right Atria Right atrial chamber dimension is normal. Aortic Valve The aortic valve is trileaflet. There is mild aortic valve sclerosis. There is no aortic valve stenosis. There is trace aortic valve regurgitation. Pulmonic Valve The pulmonic valve is not well visualized. There is trace pulmonic regurgitation. Mitral Valve The mitral valve has normal leaflets. There is trace mitral valve regurgitation. The mitral valve annulus is mildly calcified. Tricuspid Valve The tricuspid valve leaflets are normal. There is trace tricuspid valve regurgitation. No pulmonary hypertension, estimated pulmonary arterial systolic pressure is 8 mmHg. Inferior Vena Cava Normal inferior vena cava with >50% collapse upon inspiration consistent with normal right atrial pressure, 5 mmHg. Aorta The aortic root size at the sinus of Valsalva is normal. There is mild aortic atherosclerosis. Left Ventricular Outflow Tract Name Value Normal LVOT 2D LVOT Diameter 1.9 cm LVOT Doppler LVOT Peak Gradient 6 mmHg LVOT Mean Gradient 3 mmHg LVOT VTI 36 cm LVOT VTI/AV VTI Ratio 0.7 LVOT Stroke Volume 103 ml LVOT CO 4.6 l/min LVOT CI 2.5 l/min/m2 Pulmonic Valve Name Value Normal RVOT Doppler R
--- NOTE | 2022-08-11 16:07 | ECG_ITS ---
Measurements Intervals [place] Rate: 68 P: 262 AK: 180 QRS: -86 QRSD: 161 T: 85 QT: 460 QTc: 491 Interpretive Statements ELECTRONIC ATRIAL PACEMAKER ELECTRONIC VENTRICULAR PACEMAKER ABNORMAL RHYTHM ECG COMPARED TO ECG 08/11/2022 08:46:08 PACED RHYTHM NOW PRESENT Electronically Signed On 08-12-2022 13:45:15 CDT by Thomas Gonsales M.D.
--- NOTE | 2022-08-11 17:56 | PC.NURSE ---
Paper documentation exists on this patient due to t3n [employer] downtime on 08/11/22 from [id number] to [id number].
[2022-08-11 19:43] VITALS: BP 136/59; PULSE 66; RESP 16; TEMP 36.1; O2SAT 96
[2022-08-11] MEDS: LOSARTAN POTASSIUM 100 MG TABLET PO (19:52)
[2022-08-11] MEDS: CHOLECALCIFEROL 1,000 UNITS TABLET 1000 UNITS PO (19:52)
[2022-08-11] MEDS: ASPIRIN 81 MG ENTERIC TABLET PO (19:52)
[2022-08-11] MEDS: MAGNESIUM 13.5 MG TABLET (250 MG MAG GLUCONATE) PO (19:52)
[2022-08-11 20:00] VITALS: PULSE 65
[2022-08-11 23:31] VITALS: BP 147/79; PULSE 72; RESP 16; TEMP 36.4; O2SAT 95
--- NOTE | 2022-08-11 23:39 | PN_ITS ---
DATE OF SERVICE: 08/11/2022 TIME OF EVALUATION: 9:35 a.m. REASON FOR FOLLOWUP: Symptomatic bradycardia, high-grade AV block. SUBJECTIVE: The patient feels worse today, more symptomatic with more persistent bradycardia even lying in bed. The patient states she is at least 30% worse and was tearful during our interview. The patient denies chest pain or extreme shortness of breath. She states she does not feel well, even more fatigued in general with this intermittent, progressive, more severe drops as she describes. Heart rate generally in the low 40s down to upper 30s. Telemetry remains unchanged as before. No lower extremity edema, fevers, or chills. The patient had a light breakfast in anticipation as instructed for pacemaker implantation this afternoon. OBJECTIVE: VITAL SIGNS: Temperature 97.7, pulse 47, blood pressure is 150/59, and saturating 97% on room air. GENERAL: The patient is a pleasant female, mildly tearful, breathing comfortably, answering questions appropriately, appears fatigued and worried. HEENT: Head; atraumatic and normocephalic. Eyes; sclerae anicteric. Conjunctivae unremarkable. NECK: Supple. No jugular venous distention. Carotid bruits. LUNGS: Clear to auscultation bilaterally. No rales or wheezes. CARDIAC: Irregularly irregular rate, rhythm, soft early systolic murmur, frequent ectopy. ABDOMEN: Soft, nontender, and nondistended. Positive bowel sounds throughout. EXTREMITIES: No edema, clubbing, or cyanosis. Warm and well perfused. SKIN: Warm and dry without ecchymosis or petechiae. NEUROLOGIC: Cranial nerves II through XII grossly intact. Examination is grossly nonfocal. PSYCHIATRIC: Mood calm and appropriate, although the patient was tearful and appeared worried. PERTINENT LABORATORY DATA: Personally reviewed and analyzed. White blood cell count 5.14, hemoglobin 14.6, hematocrit 45.4, and platelet count 175. Sodium 133, potassium 4.6, chloride 97, bicarb 33, BUN 10, creatinine 0.7, glucose 92, calcium 9.3, LDL 62, HDL 98, triglycerides 59, and total cholesterol 180. INR 1.06. PT 14.3. Telemetry continues to reveal an unusual bradycardic rhythm, probable sinus with first-degree AV block with variable second-degree AV block, possibly type 2. No atrial fibrillation. No prolonged pauses. IMPRESSION: 1. Symptomatic bradycardia and high-grade atrioventricular block. 2. Hypertension. 3. Peripheral arterial disease. 4. History of breast cancer, status post radiation and chemotherapy. PLAN: 1. With regard to symptomatic bradycardia and high-grade AV block, permanent pacemaker implantation is indicated and has been advised. Given progression of symptoms and more persistent bradycardia, advised proceeding with permanent dual-chamber pacemaker implantation as scheduled today. Discussed with Dr. Chavez, who is also in agreement with the plan of care. The patient is very happy that we would be able to proceed with pacemaker implantation given worsening symptoms despite the fact that the medical record has gone down and is completely inaccessible. The patient indicates she is not sure how much longer she could wait given her symptoms. 2. Blood pressure elevated, but stable. Continue spironolactone. Avoid any and all AV tristen blocking agents. 3. Continue aspirin 81 mg daily given history of PAD. I would advise statin therapy, but this will be just further on an outpatient basis. 4. Continue DVT prophylaxis with SCDs. 5. The patient is stable to proceed with pacemaker implantation. No evidence of active infection or fevers overnight. 6. Further recommendations after pacemaker implantation. The patient will be observed overnight and discharged tomorrow provided no complications. Post pacemaker precautions reviewed as appropriate prior to discharge. The patient verbalized understanding of the
[2022-08-12] VITALS (9 sets, daily range): BP systolic 148–156; BP diastolic 75–85; PULSE 63–80; RESP 16–18; TEMP 35.9–36.4; O2SAT 95–98
[2022-08-12 04:59] LABS: Hematocrit 45.1 % (37.0-47.0); Hemoglobin 14.7 g/dL (12.0-15.0); Mean Corpuscular HGB Conc 32.6 g/dl (32-36); Mean Corpuscular Hemoglobin 31.1 pg (26-34); Mean Corpuscular Volume 95.3 fl (80-100); Mean Platelet Volume 9.9 fl (7.4-10.4); Platelet Count Result 175 k/mm3 (150-375); Red Blood Count 4.73 M/mm3 (4.2-5.4); Red Cell Distribution Width 12.8 % (11.5-14.5); White Blood Count 6.8 K/mm3 (4.5-10.0)
[2022-08-12 05:18] LABS: Anion Gap 1 mmol/L (8-16); Blood Urea Nitrogen 14 mg/dL (7-17); Calcium 8.9 mg/dL (8.4-10.2); Carbon Dioxide 33 mmol/L (22-30); Chloride 97 mmol/L (98-107); Estimated CRCL calculation 75 ml/min; Estimated Glomerular Filt Rate > 60; Glucose 92 mg/dL (65-110); Potassium 4.3 mmol/L (3.4-5.0); Sodium 131 mmol/L (137-145)
--- NOTE | 2022-08-12 06:35 | OP_ITS ---
DATE OF PROCEDURE: 08/11/2022 HISTORY: The patient is a 66-year-old female who was admitted with intermittent feelings of weakness and fatigue, variable blood pressure. She was found to have intermittent complete heart block. She was not on any medications that would contribute to this. Her echo showed normal left ventricular function. Telemetry showed increasing frequency of complete heart block with underlying heart rhythm in the upper 30s to low 40s and the patient felt particularly bad this morning with dizziness. She was referred by Dr. Sauceda for implantation of a permanent dual-chamber pacemaker. I have reviewed the procedure with the patient and her . We are planning a possible venogram, and reviewed this procedure as well. Possible complications include breathing problems, allergic reactions, bleeding, lead dislodgement, pneumothorax, cardiac perforation, and the need for unexpected procedures. She desires to proceed. PROCEDURE: 1. Venogram of the left subclavian vein. 2. Conscious sedation. 3. Implantation of a permanent dual-chamber Biotronik pacemaker. CONSCIOUS SEDATION: The oropharynx was clear. Mallampati class 3. ASA 4. The patient is deemed a suitable candidate for conscious sedation. Brandi Maldonado RN monitored the patient during sedation. Case start time was 1435, case end time was 1547, with a total conscious sedation time of 72 minutes. She was given a total of Versed 4 mg and fentanyl 150 mcg IV push during the procedure and was monitored continuously with oximetry and hemodynamic monitoring. She tolerated conscious sedation well. PACEMAKER IMPLANTATION: The left prepectoral area was prepped and draped in usual fashion. The patient was given 10 mL of IV contrast through IV in the left antecubital area and fluroscopy of the left subclavian vein was performed. The vein was patent and in the appropriate position. Next, she received local anesthesia of the left prepectoral area using 1% lidocaine. A skin incision was made and carried down to the prepectoral fascia. A pacer pocket was formed. Hemostasis was obtained using electrocautery. Using a micropuncture needle, the left subclavian vein was easily accessed x2, wires passed into the right heart and into the inferior vena cava easily. [place] were withdrawn. A 7-Kyrgyz safety sheath was passed over the lateral wire and the wire withdrawn. Next, the right ventricular pacemaker lead was passed down into the inferior vena cava, pulled back to the level of the right atrium and prolapsed through the tricuspid valve. When suitable sensing and pacing thresholds were obtained, it was securely screwed into place. No extracardiac stimulation was obtained using 10 V. The sheath was withdrawn. Next, using the medial wire, another 7-Kyr[place]z safety sheath was passed over the wire, wire withdrawn, and the atrial lead was passed into the level of the right atrium. It was manipulated into left atrial appendage. The lead had to be repositioned a couple of times to get optimal threshold and a secure position. When suitable sensing and pacing thresholds were obtained, it was screwed into place. No extracardiac stimulation was obtained using 10 V. The sheath was then removed. Both leads were sutured to the prepectoral fascia using a 2-0 silk suture. A gentle tug showed that these were secure. The area was copiously irrigated with antibiotic containing solution. The pulse generator was introduced in the operative field and both leads were secured. The pulse generator was placed into the pacing pocket and sutured to the prepectoral fascia using 2-0 silk suture. The subcutaneous tissues were closed in a 2-layer fashion using 2-0 Vicryl suture and the skin was closed using continuous 4-0 Vicryl suture. The area was cleansed and Steri-Strips we
[2022-08-12] MEDS: SPIRONOLACTONE 25 MG TABLET PO (08:48)
[2022-08-12] MEDS: ACETAMINOPHEN 500 MG TABLET 1000 MG PO (08:48)
--- NOTE | 2022-08-12 09:17 | PM.PNCARD ---
Progress Note: A&P Assessment and Plan (1) Symptomatic bradycardia: Code(s): R00.1 - Bradycardia, unspecified Status: Acute Assessment and Plan: Patient presents with symptomatic bradycardia with intermittent junctional escape, first-degree AV block, second-degree AV block possibly type 2 as well as type 1. She is now s/p dual chamber PPM placement. She is asymptomatic. Device interrogation this morning showed normal functioning device. CXR this morning showed no pneumothorax. Reviewed pacemaker precautions with patient and at bedside. OK for discharge home today from a cardiac standpoint. (2) High-grade atrioventricular block: Code(s): I44.39 - Other atrioventricular block Status: Acute Assessment and Plan: As above. (3) Hypertension: Code(s): I10 - Essential (primary) hypertension Status: Acute Assessment and Plan: Blood pressure remains elevated but is stable generally 140s-160s. Losartan 100 mg daily and spironolactone 25 mg daily have been resumed. (4) Peripheral arterial disease: Code(s): I73.9 - Peripheral vascular disease, unspecified Status: Acute Assessment and Plan: As evidence by 05/2022 arterial Doppler she has at least mild peripheral arterial disease which aspirin 81 mg daily and statin therapy previously were advised. She had declined statin therapy. Continue aspirin 81 mg daily for now. Follow-up with Dr. Vázquez as an outpatient. Subjective Date/time seen: 08/12/22 09:17 Cardiology follow up for intermittent high degree AVB Interval history: She had some L axillary pain last night that has subsided. She denies any pain at this time. Has some mild tenderness fo palpation. No chest pain or shortness of breath. Review of Systems Review of Systems: Remainder of the review of systems is otherwise negative aside from that noted in the HPI. All systems reviewed & are unremarkable except as noted in HPI and below Constitutional: Constitutional: Reports as per HPI and Reports no additional constitutional complaints Eyes: Eyes: Reports as per HPI and Reports no additional eye complaints ENT: Reports system reviewed and no additional complaints, except as documented and Reports as per HPI Cardiovascular: Cardiovascular: Reports as per HPI and Reports no additional cardiovascular complaints Respiratory: Respiratory: Reports as per HPI and Reports no additional respiratory complaints Gastrointestinal: Gastrointestinal: Reports as per HPI and Reports no additional gastrointestinal complaints Genitourinary: Genitourinary: Reports as per HPI Musculoskeletal: Musculoskeletal: Reports no additional musculoskeletal complaints and Reports as per HPI Integumentary/Breasts: Skin/Breast: Reports system reviewed and no additional complaints, except as docu and Reports as per HPI Neurologic: Reports system reviewed and no additional complaints, except as documented and Reports as per HPI Psychiatric: Psychiatric: Reports no additional psychiatric complaints and Reports as per HPI Endocrine: Endocrine: Reports no additional endocrine complaints and Reports as per HPI Hematologic/Lymphatic: Hematologic/Lymphatic: Reports no additional hematologic/lymphatic complaints and Reports as per HPI Allergic/Immunologic: Allergic/Immunologic: Reports no additional allergic/immunologic complaints and Reports as per HPI Exam Const: General: comfortable, no acute distress, alert and awake Orientation/consciousness: patient oriented x3 HENMT: Head: normal to inspection Eyes: General: appearance normal, both eyes and all related structures Pupils: Equal, round and reactive pupils present Neck: Neck: normal visual inspection, supple and no JVD Carotids: normal carotid upstroke Chest: Other: L pectoral dressing clean, dry, intact. No hematoma. Resp: Effort & Inspection: normal respiratory effort Auscultation: clear to auscultat
[2022-08-12 10:36] LABS: INR 1.1; Prothrombin Time 14.3 Seconds (11.1-14.7)
[2022-08-12 10:37] LABS: Eosinophils Percent Auto 2.5 % (0-4.4); Hematocrit 45.4 % (37.0-47.0); Hemoglobin 14.6 g/dL (12.0-15.0); Immature Granulocyte Percent A 0.2 % (0-0.5); Lymphocytes Percent Auto 24.3 % (18.3-44.2); Mean Corpuscular HGB Conc 32.2 g/dl (32-36); Mean Corpuscular Hemoglobin 31.1 pg (26-34); Mean Corpuscular Volume 96.8 fl (80-100); Mean Platelet Volume 9.8 fl (7.4-10.4); Monocytes Percent Auto 10.7 % (2.6-8.5); Neutrophils Percent Auto 61.7 % (45.5-73.1); Platelet Count Result 175 k/mm3 (150-375); Red Blood Count 4.69 M/mm3 (4.2-5.4); Red Cell Distribution Width 13.1 % (11.5-14.5); White Blood Count 5.1 K/mm3 (4.5-10.0)
[2022-08-12 10:38] LABS: Basophils Percent Auto 0.6 % (0.2-1.2); Eosinophils Absolute Auto 0.1 K/mm3 (0-0.3); Immature Granulocyte Absolute 0.01 K/mm3 (0.00-0.031); Lymphocytes Absolute Auto 1.25 K/mm3 (0.9-3.2); Monocytes Absolute Auto 0.6 K/mm3 (0.1-0.6); Neutrophils Absolute Auto 3.2 K/mm3 (1.3-6.7)
[2022-08-12 10:40] LABS: Anion Gap 3 mmol/L (8-16); Blood Urea Nitrogen 10 mg/dL (7-17); Calcium 9.3 mg/dL (8.4-10.2); Carbon Dioxide 33 mmol/L (22-30); Chloride 97 mmol/L (98-107); Estimated CRCL calculation 65 ml/min; Estimated Glomerular Filt Rate > 60; Glucose 92 mg/dL (65-110); Magnesium 2.2 mg/dL (1.6-2.3); Potassium 4.6 mmol/L (3.4-5.0); Sodium 133 mmol/L (137-145)
[2022-08-12 10:41] LABS: Cholesterol 180 mg/dL (0-200); HDL Direct 98 mg/dL; LDL Cholesterol Direct 62 mg/dL; Triglycerides 59 mg/dL (<150)
--- NOTE | 2022-08-12 12:18 | PM.DS ---
DS: Admitting Diagnosis Discharge Date 08/12/2022 Admitting Diagnosis Bradycardia DS: Discharge Diagnosis Discharge Diagnosis (1) Symptomatic bradycardia: Code(s): R00.1 - Bradycardia, unspecified Status: Acute (2) High-grade atrioventricular block: Code(s): I44.39 - Other atrioventricular block Status: Acute (3) Hypertension: Code(s): I10 - Essential (primary) hypertension Status: Acute (4) Obstructive sleep apnea: Code(s): G47.33 - Obstructive sleep apnea (adult) (pediatric) Status: Acute (5) Peripheral arterial disease: Code(s): I73.9 - Peripheral vascular disease, unspecified Status: Acute DS: Summary Hospital Course Hospital Course: This is a very pleasant 66-year-old female with history of hypertension, peripheral arterial disease by previous lower extremity Dopplers, diastolic dysfunction, breast cancer status post chemoradiation and lumpectomy, partial thyroidectomy for benign nodule, and obstructive sleep apnea treated with mandibular advancement device who presented to the emergency department yesterday morning via private vehicle for evaluation of palpitations, elevated blood pressure, and low heart rate. The patient provides the following history. She has not been feeling well for upwards of a week with occasional dull headaches which seem to correlate with a rise in blood pressure, as high as 180s systolic (blood pressures are typically well controlled and are in the 120s systolic). She has occasional palpitations and reports that she can feel her heart beating slowly. In fact she has noted her heart rate be as low as 29 beats per minute while taking her blood pressure. She denies overt dizziness but she has had episodes where she feels a bit off. She denies syncope, near syncope, chest pain, shortness of breath, nausea, vomiting, and sweats. She is not on any AV tristen blocking agents and she has not had any recent change in medications. She had a partial thyroidectomy years ago for benign nodule and she was on levothyroxine for brief period of time and to her knowledge her TSH has been well within normal limits without medication. EKG on arrival was read as a sinus rhythm with intermittent probable second degree AV block and occasional junctional escape beats. At time she appears to have intermittent 1st and second-degree AV block as well. Blood pressures have ranged anywhere from the 140s to 160s systolic and her heart rate has been running in the mid to upper 30s to low 60s. At the time my evaluation she is feeling okay as long as she is not up and moving and she has no current complaints. Cardiology was consulted. Pacemaker was placed on 08/11/2022. Postoperatively did well without any complications. She will be discharged home to continue to follow-up with cardiology as an outpatient basis Time Spent with Patient Time attestation: Total time spent providing and/or coordinating discharge services: 35 minutes Exam Narrative: General: Well-developed female sitting up beside the bed in no acute distress. Weight: 72.3 kg. BMI: 27.4. HEENT: Normocephalic, atraumatic. PERRL, EOMI. Sclera anicteric. Oral mucosa moist. Neck: Supple. No bruits. Respiratory: Lungs are clear to auscultation bilaterally. Cardiovascular: Bradycardic with normal S1-S2 and occasional ectopy. Soft systolic murmur heard at the upper sternal border. Gastrointestinal: Abdomen is soft, nontender, and nondistended with positive bowel sounds. Skin: Warm and dry. No rash or lesions on limited exam. Extremities: No cyanosis, clubbing, or edema. Radial and pedal pulses intact. Neurological: Alert. Cranial nerves 2-12 are grossly intact. No gross focal deficits to casual conversation. Psychiatric: Pleasant and cooperative with normal mood and affect. Judgment and insight intact. DS: Data Data Completed and Pending Completed studies during hospitalization: Exam Type: ? ? CA echo doppler co
== END 2022-08-12 13:35 | disposition home or self-care (01) | DRG 243 ==
LOC: ANHED 18:18 → ANHIMU 08-10 09:59
PROVIDERS: Emergency Medicine; Family Medicine; Internal Medicine Cardiovascular Disease; Physician Assistant; Admitting Provider Internal Medicine; Emergency Provider Family Medicine; PCP Family Medicine; Visit Provider Internal Medicine
PROC: 0JH606Z Insertion of Pacemaker, Dual Chamber into Chest Subcutaneous Tissue and Fascia, Open Approach (ICD-10-PCS; CPT 33208; principal; 2022-08-11 14:00)
DX: I44.1 Atrioventricular block, second degree (principal); E87.1 Hypo-osmolality and hyponatremia; R00.1 Bradycardia, unspecified; G47.33 Obstructive sleep apnea (adult) (pediatric); I10 Essential (primary) hypertension; I73.9 Peripheral vascular disease, unspecified; E03.9 Hypothyroidism, unspecified; J43.9 Emphysema, unspecified; F41.9 Anxiety disorder, unspecified; Z85.3 Personal history of malignant neoplasm of breast; Z87.891 Personal history of nicotine dependence
CPT/HCPCS: 33208; 36415; 71045; 71046; 80048; 80053; 80061; 83690; 83735; 84443; 84484; 85025; 85027; 85610; 85730; 93005; 93306; 99285; A9270; C1779; C1785; J3370

== ENCOUNTER → 2022-12-21 07:42 | Outpatient (CLI) | payer MEDICARE, SELFPAY ==
--- NOTE | ~2022-12-21 | US_ITS ---
US right upper quadrant INDICATION: Right upper quadrant pain PROCEDURE: Realtime right upper abdominal ultrasound. COMPARISON: No prior studies for comparison. FINDINGS: The pancreas is normal without focal mass or pancreatic ductal dilation. Liver echotexture is normal without focal mass or intrahepatic biliary dilatation. There is normal directional flow i n the portal vein. The gallbladder is normal without stones, gallbladder wall thickening or pericholecystic fluid. Comm on bile duct measures 6 mm. No sonographic Novak's sign. IMPRESSION: 1: Normal limited abdominal ultrasound. Reviewed, dictated and finalized at location L.
== END ==
PROVIDERS: PCP Family Medicine; Visit Provider Family Medicine
DX: R10.11 Right upper quadrant pain (principal)
CPT/HCPCS: 76705

== ENCOUNTER → 2023-02-02 10:50 | Outpatient (CLI) | payer MEDICARE, SELFPAY ==
--- NOTE | ~2023-02-02 | XR_ITS ---
EXAMINATION: [id number] Exam Date/Time: 02/02/2023 10:55 SURGICAL NURSE HISTORY: RIGHT RIB PAIN, PLEURODYNIA Comparison: None available. RESULT: Lines, tubes, and devices: Left chest pacer with intact leads. Midline lower neck and right axillary surgical italo. Postsurgical change in the right breast.. Lungs and pleura: Biapical pleural scarring. Senescent and likely emphysematous changes. Diffuse ret iculonodular opacities. Cardiothymic silhouette: Dilated central pulmonary arteries as can be seen with pulmonary arterial h ypertension. Other: No acute osseous or upper abdominal finding. IMPRESSION: No acute cardiopulmonary process. No acute osseous finding in the right ribs. Emphysema. Respiratory bronchiolitis. Reviewed, dictated and finalized at location K. ICAL NURSE IMPRESSION: No acute cardiopulmonary process. No acute osseous finding in the right ribs. E mphysema. Respiratory bronchiolitis.
== END ==
PROVIDERS: PCP Family Medicine; Visit Provider Physician Assistant
DX: J84.115 Respiratory bronchiolitis interstitial lung disease (principal); J43.9 Emphysema, unspecified
CPT/HCPCS: 71101

== ENCOUNTER 2023-07-22 13:57 | Emergency (ER) | payer MEDICARE, SELFPAY ==
--- NOTE | ~2023-07-22 | XR_ITS ---
Clinical Indication: Dizziness, jaw pain PA and lateral views of the chest: Comparison: 08/12/2022 Findings: The lungs are clear, without evidence of focal consolidation or pleural effusion. Cardiome diastinal silhouette is within normal limits, with pacemaker device. Bones and soft tissues are unrem arkable. Impression: Clear lungs. Pacemaker device. Reviewed, dictated and finalized at location . Impression: Clear lungs. Pacemaker device.
--- NOTE | ~2023-07-22 | CT_ITS ---
EXAMINATION: CT cervical spine wo con DATE: 07/22/2023 16:48 INDICATION: Head injury. Paresthesias of the hands. TECHNIQUE: Computed tomography (CT) of the cervical spine was performed without intravenous contrast. Automated exposure control and iterative reconstruction technique were employed. The dose-length pro duct was 192.02 mGy-cm. COMPARISON: None FINDINGS: There is mild emphysema. There is mild scarring at the lung apices. There are changes of le ft hemithyroidectomy. There is kyphosis of cervical spine. There is 12 degrees levoscoliosis of cervi enzo spine. Vertebral body heights are normal. There is mildly decreased disc height at C3-C4 and tasneem rely decreased disc height at C5-C6 and C6-C7. The following disc levels are specifically discussed: C2-C3: There is no uncovertebral joint osteoarthritis. There is mild bilateral facet joint osteoarthr itis. There is no neural foraminal stenosis. There is no central canal stenosis. C3-C4: There is mild bilateral uncovertebral joint osteoarthritis. There is moderate right and mild l eft facet joint osteoarthritis. There is no neural foraminal stenosis. There is no central canal sten osis. C4-C5: There is no uncovertebral joint osteoarthritis. There is no facet joint osteoarthritis. There is no neural foraminal stenosis. There is no central canal stenosis. C5-C6: There is severe bilateral uncovertebral joint osteoarthritis. There is mild bilateral facet blas int osteoarthritis. There is mild bilateral neural foraminal stenosis. There is mild central canal st enosis. C6-C7: There is moderate bilateral uncovertebral joint osteoarthritis. There is mild bilateral facet joint osteoarthritis. There is no neural foraminal stenosis. There is no central canal stenosis. C7-T1: There is no uncovertebral joint osteoarthritis. There is mild bilateral facet joint osteoarthr itis. There is no neural foraminal stenosis. There is no central canal stenosis. IMPRESSION: 1. No fracture. 2. Severe cervical spondylosis. 3. Cervical levoscoliosis. Reviewed, dictated and finalized at location A.
--- NOTE | ~2023-07-22 | CT_ITS ---
EXAMINATION: CT brain wo con DATE: 07/22/2023 16:48 INDICATION: Head injury. Dizziness. TECHNIQUE: Computed tomography (CT) of the head was performed without intravenous contrast. The mA wa s adjusted according to patient size. Iterative reconstruction technique was employed. The dose-lengt h product was 529.67 mGy-cm. COMPARISON: Head CT 09/29/2019 FINDINGS: There is no intracranial hemorrhage, acute infarction, or abnormal intracranial mass lesion . There are scattered areas of low attenuation in the cerebral white matter, which is within normal l imits for the patient's age. The ventricles are normal in size. There is mild mucosal thickening in t he ethmoid sinuses. The orbits are normal. There is a trace left mastoid effusion. IMPRESSION: 1. Normal brain. Reviewed, dictated and finalized at location A. IMPRESSION: 1. Normal brain.
--- NOTE | 2023-07-22 13:58 | ECG_ITS ---
SEE SCANNED COPY FOR CONFIRMED REPORT MTDD
[2023-07-22 14:00] VITALS: BP 181/71; PULSE 93; RESP 16; TEMP 36.4; O2SAT 98
[2023-07-22 14:19] LABS: Basophils Percent Auto 0.4 % (0.2-1.2); Eosinophils Absolute Auto 0.1 K/mm3 (0-0.3); Eosinophils Percent Auto 1.1 % (0-4.4); Hematocrit 45.7 % (37.0-47.0); Hemoglobin 14.7 g/dL (12.0-15.0); Immature Granulocyte Absolute 0.02 K/mm3 (0.00-0.031); Immature Granulocyte Percent A 0.3 % (0-0.5); Lymphocytes Absolute Auto 1.01 K/mm3 (0.9-3.2); Lymphocytes Percent Auto 14.3 % (18.3-44.2); Mean Corpuscular HGB Conc 32.2 g/dl (32-36); Mean Corpuscular Hemoglobin 30.4 pg (26-34); Mean Corpuscular Volume 94.4 fl (80-100); Mean Platelet Volume 9.2 fl (7.4-10.4); Monocytes Absolute Auto 0.6 K/mm3 (0.1-0.6); Monocytes Percent Auto 8.8 % (2.6-8.5); Neutrophils Absolute Auto 5.3 K/mm3 (1.3-6.7); Neutrophils Percent Auto 75.1 % (45.5-73.1); Platelet Count Result 185 k/mm3 (150-375); Red Blood Count 4.84 M/mm3 (4.2-5.4); Red Cell Distribution Width 13.5 % (11.5-14.5); White Blood Count 7.1 K/mm3 (4.5-10.0)
[2023-07-22 14:32] LABS: Alanine Aminotransferase 15 U/L (6-35); Albumin Level 4.9 g/dL (3.5-5.1); Alkaline Phosphatase 86 U/L (38-126); Anion Gap 8 mmol/L (4-12); Aspartate Amino Transferase 25 U/L (14-36); Blood Urea Nitrogen 11 mg/dL (7-17); Carbon Dioxide 27 mmol/L (22-30); Chloride 94 mmol/L (98-107); Estimated CRCL calculation 57 ml/min; Estimated Glomerular Filt Rate > 60; Glucose 106 mg/dL (65-110); Potassium 4.3 mmol/L (3.4-5.0); Sodium 129 mmol/L (137-145)
[2023-07-22 14:40] LABS: Lipase 82 U/L (23-300)
[2023-07-22 14:45] VITALS: BP 150/94; PULSE 71; RESP 17; O2SAT 97
[2023-07-22 14:46] LABS: Partial Thromboplastin Time 33.6 Seconds (22.3-36.8)
--- NOTE | 2023-07-22 14:46 | PC.NURSE ---
pt reports hx of pacemaker implanted last july for bradycardia
[2023-07-22 14:52] LABS: Troponin I < 0.012 ng/mL (0.000-0.034)
[2023-07-22 15:42] VITALS: BP 145/80; PULSE 69; RESP 18; O2SAT 95
--- NOTE | 2023-07-22 15:54 | ED.DIZZY ---
HPI - Dizziness General Chief Complaint: Dizziness Stated Complaint: dizzy and jaw pain Time Seen by Provider: 07/22/23 15:30 Source: patient Mode of arrival: ambulatory Limitations: no limitations History of Present Illness HPI Narrative: Patient presents with concerns of episodes of dizziness and lightheadedness occurring episodically for the past 3 days. When they occur they are brief. She denies any syncope or near-syncope and denies any vertiginous symptoms. She will experience some indigestion and when this occurs she will note that she has some right-sided jaw pain. No central chest pain but occasionally will experience some pain along the lateral aspect of her right side of her chest. Her symptoms are not associated with any position changes or head position changes. She denies any shortness of breath. She denies any claudication symptoms. This morning her left arm felt heavy although she had slept on this arm. In general she states that she feels off. she did accidentally pull her garage door on her head a few weeks ago but did not present to emergency department at that time. She is having some left scapula pain as well. she has a neurological tremor at baseline. Patient states she is concerned because she has a pacemaker and did not know if her symptoms were related to this. Patient does not have a PCP. Related Data Home Medications Medication Instructions Recorded Confirmed cholecalciferol (vitamin D3) 25 25 mcg PO HS 06/29/21 08/10/22 mcg (1,000 unit) capsule losartan 100 mg tablet 100 mg PO HS 06/29/21 08/10/22 magnesium 250 mg tablet 250 mg PO HS 06/29/21 08/10/22 spironolactone 25 mg tablet 25 mg PO DAILY 06/29/21 08/10/22 (Aldactone) aspirin 81 mg tablet,delayed 81 mg PO HS 08/10/22 08/10/22 release Allergies Allergy/AdvReac Type Severity Reaction Status Date / Time Penicillins Allergy Intermediate Hives Verified 08/10/22 10:52 ciprofloxacin Allergy Mild Nausea and Verified 08/10/22 10:52 Vomiting erythromycin base Allergy Mild Nausea and Verified 08/10/22 10:52 Vomiting hydrochlorothiazide Allergy Mild Unknown Verified 07/29/21 12:52 triamterene Allergy Mild Unknown Verified 07/29/21 12:52 Antihistamines - Alkylamine Allergy Unknown Unknown Verified 06/01/22 12:52 cefuroxime Allergy Unknown Gastrointestinal Verified 08/10/22 10:52 Upset nitrofurantoin Allergy Unknown Gastrointestinal Verified 08/10/22 10:52 Upset codeine AdvReac Mild Nausea and Verified 08/10/22 10:52 Vomiting PMFSH Past Medical History Medical History (Updated 07/23/23 @ 12:41 by Enriqueta Chung MD) Anxiety Emphysema of lung History of right breast cancer Status post lumpectomy and chemoradiation. Hypertension Hypothyroidism Obstructive sleep apnea Uses a mandibular advancement device. Osteopenia Pacemaker Peripheral arterial disease Evidence of at least mild peripheral tibial disease on arterial Dopplers taken in May 2022. Surgical History Surgical History History of dilation and curettage (01/2000) Benign uterine and endocervical polyps. History of endometrial ablation (03/2001) History of lumpectomy of right breast (10/05/07) History of partial thyroidectomy (06/2004) History of tonsillectomy (1957) History of tubal ligation (1978) Family History Family History Grandparent Family history of lung cancer Carcinoma of colon Acute myocardial infarction Mother Family history of congestive heart failure Congestive heart failure Family history of atrial fibrillation Asthma Hypertension Sibling Family history of liver cancer Sibling Family history of melanoma Social History Social History Social History: Surrogate medical decision maker: Zbigniew Encarnacion, spouse. Code status: Full code.
[2023-07-22 17:11] VITALS: PULSE 68; RESP 18; O2SAT 99
--- NOTE | 2023-07-22 18:03 | ECG_ITS ---
SEE SCANNED COPY FOR CONFIRMED REPORT MTDD
[2023-07-22 18:15] LABS: Troponin I < 0.012 ng/mL (0.000-0.034)
[2023-07-22 18:30] LABS: Creatinine Urine 51.5 mg/dL
[2023-07-22 18:32] LABS: Sodium Urine Random 21 meq/L
[2023-07-22 19:05] VITALS: BP 160/79; PULSE 67; RESP 16; O2SAT 95
[2023-07-26 15:13] LABS: Osmolality, Urine 199 mOsm/kg (50-1200)
== END 2023-07-22 19:21 | disposition home or self-care (01) ==
PROVIDERS: Family Medicine; Emergency Provider Student in an Organized Health Care Education/Training Program
DX: R42 Dizziness and giddiness (principal); E87.1 Hypo-osmolality and hyponatremia; M47.812 Spondylosis without myelopathy or radiculopathy, cervical region; M41.9 Scoliosis, unspecified; Z95.0 Presence of cardiac pacemaker; J43.9 Emphysema, unspecified; I10 Essential (primary) hypertension; I73.9 Peripheral vascular disease, unspecified; E89.0 Postprocedural hypothyroidism; G47.33 Obstructive sleep apnea (adult) (pediatric); M85.80 Other specified disorders of bone density and structure, unspecified site; Z85.3 Personal history of malignant neoplasm of breast; Z87.891 Personal history of nicotine dependence; Z79.82 Long term (current) use of aspirin; Z79.899 Other long term (current) drug therapy; R07.9 Chest pain, unspecified
CPT/HCPCS: 36415; 70450; 71046; 72125; 80053; 82570; 83690; 83930; 83935; 84300; 84484; 85025; 85610; 85730; 93005; 99284

== ENCOUNTER 2024-07-31 07:02 | Outpatient (CLI) | payer MEDICARE, SELFPAY ==
--- NOTE | ~2024-07-31 | US_ITS ---
EXAMINATION: US aorta [facility] DATE: 07/31/2024 8:55 CDT INDICATION: Smoker. Evaluate for aneurysm. TECHNIQUE: Grayscale, color Doppler, and pulsed Doppler images of the aorta and common iliac arteries were obtained. COMPARISON: None. FINDINGS: The proximal aorta measures 2 cm greatest sagittal dimension. The mid aorta measures 2.2 cm greatest sagittal dimension. The distal aorta measures 1.5 cm greatest sagittal dimension. The right common internal iliac artery measures 11 mm. The left common iliac artery measures 11 mm. There is mild diff use atherosclerosis of the aorta. IMPRESSION: 1. Normal caliber aorta without aneurysm. Reviewed, dictated and finalized at location A.
--- OUTSIDE RECORDS SUMMARY | 2024-07-31 07:06 | XMS_ITS | Encounter Summary ---
Author Organization [facility] Healthcare Address [address] [place] [address] Care Team Providers Care Nurse Special Name Role Phone Erika Marinelli NP Primary Care Provider [phone] Rosmery Cardoso MD Unavailable [phone] Thomas Gonsales MD Unavailable [phone] Jesse Monterroso MD Unavailable [phone] Encounter Details Date Type Department Care Team (Late st Contact Info) Description 07/01/2024 Results Follow-Up [facility] Primary Care at [address] [address] Rl Olvera MD [address] [place] [address] [address] [place] [address] XR Chest Pa Lateral 2 Views Social History Tobacco Use Types Packs/Day Years Used Date Smoking Tobacco: Former Cigarettes Q uit: 10/10/2005 Smokeless Tobacco: Never Alcohol Use Standard Drinks/Week Comments Yes 14 (1 standard drink = 0.6 oz pu re alcohol) PHQ-2 Answer Date Recorded PHQ-2 Total Score (If total score is 3 or more points, staff should administer the PHQ-9) 0 03/23/2024 Comments Unknown Sex and Gender Information Value Date Recorded Sex Assigned at Not on file 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 Gender Identity Female 10/01/2019 4:34 PM CDT Sexual Orientation Choose not to disclose 2019 4:34 PM CDT documented as of this encounter Ordered Prescriptions Prescription Sig Dispense Quantity Refills Last Filled Start Date End Date doxycycline (VIBRAMYCIN) 100 mg capsule Take 1 tablet/caps ule (100 mg total) by mouth 2 (two) times a day for 10 days 20 tablet/capsule 07/01/2024 07/11/2024 documented in this encounter Plan of Treatment Scheduled Procedures Name Priority Associated Diagnoses Date/Ti me ESOPHAGOGASTRODUODENOSCOPY Esophageal dysphagia documented as of this encounter Visit Diagnoses Not on filedocumented in this encounter Care Teams Nurse Special Relationship Specialty Start Date End Date Erika Marinelli NP [address] [facility] [address] [place] [address] PCP - General Family Medicine 09/15/23 Rosmery Cardoso MD [address] [facility] [address] [address] Consulting Physician General Surgery 09/15/23 Thomas Gonsales MD [address] [facility] [address], [place] [address] Consulting Physician Interventional Cardiology 09/15/23 Jesse Monterroso MD [address] [facility] [address] [place] [address] Referring Physician Obstetrics and Gynecology 09/15/23 documented as of this encounter
--- OUTSIDE RECORDS SUMMARY | 2024-07-31 07:06 | XMS_ITS | Encounter Summary ---
Author Organization [facility] Healthcare Address [address] [place] [address] Care Team Providers Care Extruder Name Role Phone Erika Marinelli NP Primary Care Provider Rosmery Cardoso MD Unavailable [phone] Thomas Gonsales MD Unavailable [phone] Jesse Monterroso MD Unavailable [phone] Reason for Visit * Auth/Cert (Routine) Specialty Diagnoses / Procedures Referred By Mary koch Referred To Contact Diagnoses Esophageal dysphagia Esophageal dysphagia [R13.19] Procedures [place] ESOPHAGOGASTRODUODENOSCOPY TRANSORAL DIAGNOSTIC ESOPHAGOGASTRODUODENOSCOPY Referral ID Status Reason Start Date Expiration Date Visits Re quested Visits Authorized [id number] 1 1 Encounter Details Date Type Department Care Team (Late st Contact Info) Description 07/31/2024 Hospital Encounter [facility] [address] [place] [address] John Stevens DO [address] [address] Social History Tobacco Use Types Packs/Day Years Used Date Smoking Tobacco: Former Cigarettes 0.5 15 Q uit: 10/10/2005 Smokeless Tobacco: Never Alcohol Use Standard Drinks/Week Comments Yes 14 (1 standard drink = 0.6 oz pu re alcohol) PHQ-2 Answer Date Recorded PHQ-2 Total Score (If total score is 3 or more points, staff should administer the PHQ-9) 0 07/19/2024 Comments Unknown Sex and Gender Information Value Date Recorded Sex Assigned at Not on file 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 Gender Identity Female 10/01/2019 4:34 PM CDT Sexual Orientation Choose not to disclose 2019 4:34 PM CDT documented as of this encounter Plan of Treatment Scheduled Procedures Name Priority Associated Diagnoses Date/Ti me ESOPHAGOGASTRODUODENOSCOPY Esophageal dysphagia documented as of this encounter Visit Diagnoses Diagnosis Esophageal dysphagia- Primary Dysphagia, pharyngoesophageal phase documented in this encounter Admitting Diagnoses Diagnosis Esophageal dysphagia Dysphagia, pharyngoesophageal phase documented in this encounter Care Teams Extruder Relationship Specialty Start Date End Date Erika Marinelli NP [address] [place] [address] PCP - General Family Medicine 09/15/23 Rosmery Cardoso MD [address] [facility] [address] [facility] [address] [place] [address] Consulting Physician General Surgery 09/15/23 Thomas Gonsales MD [address] [place] [address] Consulting Physician Interventional Cardiology 09/15/23 Jesse Monterroso MD [address] [place], [place] [id number] Referring Physician Obstetrics and Gynecology 09/15/23 documented as of this encounter
--- OUTSIDE RECORDS SUMMARY | 2024-07-31 07:06 | XMS_ITS | Encounter Summary ---
Author Organization [facility] Healthcare Address [address] [place] [address] Care Team Providers Care Coin Purse Framer Name Role Phone rEika Marinelli NP Primary Care Provider [phone] Rosmery Cardoso MD Unavailable [phone] Thomas Gonsales MD Unavailable [phone] Jesse Monterroso MD Unavailable [phone] Encounter Details Date Type Department Care Team (Latest Contact Info) Description 07/20/2024 Results Follow-Up [facility] Primary Care at [address] [address] Erika Marinelli NP [address] [place] [address] [address] [place] [address] XR Spine Thoracic 3 Vw, Hemoglobin A1c, Erythrocyte sedimentation rate, Additional followed-up results: 3 Social History Tobacco Use Types Packs/Day Years [...] on file 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 Gender Identity Female 10/01/2019 4:34 PM CDT Sexual Orientation Choose not to disclose 2019 4:34 PM CDT documented as of this encounter Plan of Treatment Scheduled Procedures Name Priority Associated Diagnoses Date/Ti me ESOPHAGOGASTRODUODENOSCOPY Esophageal dysphagia documented as of this encounter Visit Diagnoses Not on filedocumented in this encounter Care Teams Coin Purse Framer Relationship Specialty Start Date End Date Erika Marinelli NP [address] [place] [address] PCP - General Family Medicine 09/15/23 Rosmery Cardoso MD [address] [facility] [address] [place] [address] Consulting Physician General Surgery 09/15/23 Thomas Gonsales MD [address] [facility] [address] [place], [place] [id number] Consulting Physician Interventional Cardiology 09/15/23 Jesse Monterroso MD [address] [place], [place] [id number] Referring Physician Obstetrics and Gynecology 09/15/23 documented as of this encounter
--- OUTSIDE RECORDS SUMMARY | 2024-07-31 07:06 | XMS_ITS | Clinical Summary ---
Author Organization 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 Role Phone Erika Marinelli NP Primary Care Provider [phone] Rosmery Cardoso MD Unavailable [phone] Thomas Gonsales MD Unavailable [phone] Jesse Monterroso MD Unavailable [phone] Allergies Active Allergy Reactions Criticality Noted Date Comments Azithromycin Diarrhea Low 03/26/2020 Chlorhexidin-Isopropyl Alcohol Unknown Medium 04/21/2020 Erythema Codeine Nausea And Vomiting Low 09/10/2008 Penicillins Shortness of breath High 09/10/2008 Rivaroxaban Other (See comments) Low 03/01/2023 Menopausal symptoms, excessive sweating Medications cholecalciferol (VITAMIN D3) 2,000 unit tablet take 2 by oral route once 0 0 01/07/20 15 Active magnesium oxide (MAG-OX) 250 mg (150.8 mg elemental) tabletIndicatio ns:hypomagnesem ia Take 1 tablet (250 mg total) by mouth daily Active aspirin 81 mg enteric coated tablet Take 1 tablet (81 mg total) by mouth daily 30 tablet 11 06/12/19 23 Active furosemide (LASIX) 20 mg tabletIndicatio ns: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 failure Take 1 tablet (20 mg total) by mouth daily as needed (swelling; do not take for more than 4 consecutive days) 15 tablet 3 12/15/19 24 Active spironolactone (ALDACTONE) 25 mg tablet TAKE 1 TABLET(25 MG) BY MOUTH DAILY 90 tablet 3 06/09/19 25 Active losartan (COZAAR) 100 mg tablet TAKE 1 TABLET(100 MG) BY MOUTH DAILY 90 tablet 06/22/19 25 Active atorvastatin (LIPITOR) 10 mg tabletIndicatio ns:Peripheral vascular disease Take 1 tablet (10 mg total) by mouth daily 90 tablet 3 07/14/19 25 2025 Active Additional Information Patient not taking.Reported on 07/19/2024 apixaban (ELIQUIS) 5 mg tabletIndicatio ns:Paroxysmal atrial fibrillation (HCC) Take 1 tablet (5 mg total) by mouth 2 (two) times a day 180 tablet 3 07/18/19 25 Active apixaban (ELIQUIS) 5 mg tabletIndicatio ns:Paroxysmal atrial fibrillation (HCC) Take 1 tablet (5 mg total) by mouth 2 (two) times a day 180 tablet 3 05/03/19 24 2024 Discontinued(R eorder) benzonatate (TESSALON) 100 mg capsuleIndicati ons:Cough Take 1 capsule (100 mg total) by mouth 3 (three) times a day as needed for cough 42 capsule 06/28/19 25 2024 Discontinued(N o longer taking - Do not display on AVS) doxycycline (VIBRAMYCIN) 100 mg capsule Take 1 tablet/capsule (100 mg total) by mouth 2 (two) times a day for 10 days 20 tablet/caps ule 07/02/19 25 2024 apixaban (ELIQUIS) 5 mg tabletIndicatio ns:Paroxysmal atrial fibrillation (HCC) Take 1 tablet (5 mg total) by mouth 2 (two) times a day 180 tablet 3 07/17/19 25 2024 Discontinued apixaban (ELIQUIS) 5 mg tabletIndicatio ns:Paroxysmal atrial fibrillation (HCC) Take 1 tablet (5 mg total) by mouth 2 (two) times a day 180 tablet 3 07/18/19 25 2024 Discontinued Active Problems Problem Noted Date Diagnosed Date Former smoker 07/13/2024 Esophageal dysphagia 06/28/2024 Primary hypertension 05/03/2023 Assessment & Plan (03/23/2024 3:19 PM DATABASE DEVELOPMENT PROJECT MANAGER): BP well controlled in office. Continuing Losartan 100 mg and Spironolactone 25 mg daily. Updated labs ordered. Assessment & Plan (09/15/2023 2:53 PM CDT): BP well controlled in office. Continuing Losartan 100 mg and Spironolactone 25 mg daily. Updated labs ordered. Sinus node dysfunction 03/01/2023 Chronic anticoagulation 03/01/2023 Rib pain 01/30/2023 Chronic abdominal pain 12/21/2022 Lateral epicondylitis of right elbow 12/08/2022 Mixed hyperlipidemia 12/08/2022 Assessment & Plan (09/15/2023 2:54 PM CDT): Lipid panel well controlled at previous lab draw. Updated panel ordered. Multiple joint pain 12/08/2022 Assessment & Plan (07/19/2024 11:46 AM CDT): Recheck RF, has been slightly increased in the past. Assessment & Plan (03/23/2024 3:18 PM DATABASE DEVELOPMENT PROJECT MANAGER): RF was mildly elevated x 6 months ago. Will recheck and pt will consider seeing Production Service Manager, possibly through [facility] Assessment & Plan (09/15/2023 2:54 PM CDT): Positive RF 12/2022 from previous PCP. Will get updated labs and see about getting patient in with Production Service Manager. Right upper quadrant pain 12/08/2022 Paroxysmal atrial fibrillation 09/03/2022 Assessment & Plan (09/15/2023 2:53 PM CDT): Asymptomatic in office. Continuing Eliquis. Peripheral vascular disease 09/03/2022 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 failure 08/2022 Assessment & Plan (09/15/2023 2:55 PM CDT): Stable overall, follows with Cardiology. Continuing current regimen, takes Lasix prn. Other thrombophilia 09/01/2022 Cardiac pacemaker in situ 08/17/2022 Overview (09/16/2022): Biotronik Edora Dual Pacemaker. Dx; Symptomatic Bradycardia, CHB. DOI 08/11/2022-[employer]. Bi[employer]ronik remote monitoring. 08/30/2022-[employer] Afib. JR Chronic cough 01/08/2022 EVAN (obstructive sleep apnea) 01/08/2022 COVID-19 02/24/2020 Anxiety 03/14/2018 Cough 05/08/2009 Breast cancer 09/20/2008 Overview (09/15/2023): 09/21/07 Stage I ([id number]) IDC RIGHT breast TRIPLE NEGATIVE Ki67 36% S/p lumpectomy and SLND s/p TC x 4 03/21/08 Radiation complete 12/17/11 Bone scan - had left rib lateral shadow. PET scan in 3 months negative Last Assessment & Plan: 5 1/2 year out 3 months of back pain - told PCP but no workup sergio Sept Pain right ribs again T spine between scapulas - feels like rib Same as last yaer Osteopenia 09/20/2008 Assessment & Plan (09/15/2023 2:53 PM CDT): Due for DEXA screen, patient gets this through her RN [facility] (Dr Robert Franklin). Scheduled to see him 10/2023 Pulmonary emphysema 09/20/2008 Tremor 09/20/2008 Malignant neoplasm of breast 09/20/2008 Overview (06/27/2024): 09/21/07 Stage I ([id number]) IDC RIGHT breast TRIPLE NEGATIVE Ki67 36% S/p lumpectomy and SLND s/p TC x 4 03/21/08 Radiation complete 12/17/11 Bone scan - had left rib lateral shadow. PET scan in 3 months negative Last Assessment & Plan: 5 1/2 year out 3 months of back pain - told PCP but no workup sergio Sept Pain right ribs again T spine between scapulas - feels like rib Same as last yaer Encounters Date Type Department Care Team Description 07/31/2024 Hospital Encounter [facility] [address] [place] [address] John Stevens DO 07/20/2024 Results Follow-Up [facility] Primary Care at [address] [phone] Erika Marinelli NP XR Spine Thoracic 3 Vw, Hemoglobin A1c, Erythrocyte sedimentation rate, Additional followed-up results: 3 07/19/2024 11:45 AM CDT Ancillary Procedure [facility] Imaging at [address] [phone] Chronic right-sided thoracic back pain 07/19/2024 11:30 AM CDT Ancillary Procedure [facility] Imaging at [address] [phone] Acute pain of right shoulder 07/19/2024 11:15 AM CDT Ancillary Procedure [facility] Imaging at [address] [phone] Lumbar back pain 07/19/2024 11:00 AM CDT Lab [facility] Outpatient Lab at [address] [address] 07/19/2024 10:54 AM CDT - 07/19/2024 11:59 PM CDT Hospital Encounter [address] [address] Prediabetes; Multiple joint pain; Rheumatoid factor positive Discharge Disposition: Discharge to home or self care 07/19/2024 10:00 AM CDT Office Visit [facility] Primary Care at [address] [phone] Erika Marinelli NP Right upper quadrant pain (Primary Dx); Chronic right-sided thoracic back pain; Multiple joint pain; Rheumatoid factor positive; Prediabetes; Acute pain of right shoulder; Lumbar back pain 07/17/2024 Telephone [facility] [address] [facility] [address] [place] [phone] Thomas Gonsales MD 07/13/2024 10:30 AM CDT Office Visit [facility] [address] [facility] [address] [place] [phone] Mario Alberto Stallworth MD Paroxysmal atrial fibrillation (HCC) (Primary Dx); Cardiac pacemaker in situ; Peripheral vascular disease; Primary hypertension; Sinus node dysfunction (HCC); EVAN (obstructive sleep apnea); Former smoker 07/10/2024 Telephone [facility] Gastroenterology at [address] [place] [phone] Sarita Galeano MA 07/01/2024 Results Follow-Up [facility] Primary Care at [address] [phone] Rl Olvera MD XR Chest Pa Lateral 2 Views 06/28/2024 Telephone [facility] Gastroenterology at [address] [place] [phone] John Stevens DO 06/27/2024 2:55 PM CDT Ancillary Procedure [facility] Imaging at [address] [phone] 06/27/2024 2:30 PM CDT Office Visit [facility] Primary Care at [address] [phone] Rl Olvera MD Subacute cough (Primary Dx); Esophageal dysphagia 06/27/2024 Nurse Triage [facility] Primary Care at [address] [phone] Erika Marinelli NP 06/14/2024 Results Follow-Up [facility] Primary Care at [address] [phone] Erika Marinelli NP Stool DNA - Cologuard 05/28/2024 Results Follow-Up [facility] Primary Care at [address] [phone] Erika Marinelli NP US RUQ 05/22/2024 2:00 PM CDT - 05/22/2024 11:59 PM CDT Hospital Encounter [facility] [address] [place] [address] RUQ pain Discharge Disposition: Discharge to home or self care from Last 3 Months Immunizations Immunization Administration Dates Next Due Influenza, Unspecified 02/28/2023(Deferr ed: Patient Refused),02/28/2022(Deferred: Patient Refused) Pfizer SARS-CoV-2 Monovalent Vaccination (12+ Yrs) PURPLE 05/17/2020,04/26/2020 Surgical History Surgery Date Site/Laterality Comments BREAST SURGERY lumpectomy 2007 TUBAL LIGATION THYROIDECTOMY, PARTIAL CARDIAC PACEMAKER PLACEMENT EXCISION / BIOPSY BREAST / NIPPLE / DUCT x2 Nipple Exploratory surgery DILATION AND CURETTAGE OF UTERUS TONSILLECTOMY/ADENOIDECTOM Y Medical History Medical History Date Comments Hypertension Hypertension Hx Other Medical Ca breast Hx Other Medical right lumpectom y, radiation and chemotherapy Anxiety 1998 Cancer (HCC) Breast cancer 2007 Thyroid disease Partial throidectomy nodals Sleep apnea 2019 Family History Medical History Relation Name Comments Cancer Brother 1 Shamir Ursprung Liver cancer Brother 1 Shamir Ursprung Cancer Brother 2 Ashish Ursprung Melanoma Brother 2 Ashish Ursprung Cancer Maternal Grandfather Finn Monae Liver cancer Maternal Grandfather Finn Monae Heart disease Maternal Grandmother Marcella Letha Heart disease Mother Daphne Loo Stroke Paternal Grandmother Yelitza Loo Relation Name Status Comments Brother 1 Shamir Ursprung Brother 2 Ashish Ursprung Maternal Grandfather Finn Letha Maternal Grandmother Marcella Letha Mother Daphne Teixeiraprung Paternal Grandmother Yelitza Loo Social History Tobacco Use Types Packs/Day Years Used Date Smoking Tobacco: Former Cigarettes 0.5 15 Q uit: 10/10/2005 Smokeless Tobacco: Never Tobacco Cessation:Counseling Given: Not Answered Alcohol Use Standard Drinks/Week Comments Yes 14 (1 standard drink = 0.6 oz pu re alcohol) PHQ-2 Answer Date Recorded PHQ-2 Total Score (If total score is 3 or more points, staff should administer the PHQ-9) 0 07/19/2024 Comments Unknown Sex and Gender Information Value Date Recorded Sex Assigned at Not on file Legal Sex Female 6:35 AM DATABASE DEVELOPMENT PROJECT MANAGER Gender Identity Female 10/01/2019 4:34 PM CDT Sexual Orientation Choose not to disclose 2019 4:34 PM CDT Obstetrics History Last Filed Vital Signs Vital Sign Reading Time Taken Comments Blood Pressure 120/72 07/19/2024 10:03 AM CDT Pulse 63 07/19/2024 10:03 AM CDT Temperature 36.7 C (98 F) 07/19/2024 10:03 AM CDT Respiratory Rate 18 07/19/2024 10:03 AM CDT Oxygen Saturation 95% 07/19/2024 10:03 AM CDT Inhaled Oxygen Concentration - - Weight 68 kg (150 lb) 07/19/2024 10:03 AM CDT Height 162.6 cm (5' 4) 07/19/2024 10:03 AM CDT Body Mass Index 25.75 07/19/2024 10:03 AM CDT Plan of Treatment Scheduled Procedures Name Priority Associated Diagnoses Date/Ti me ESOPHAGOGASTRODUODENOSCOPY Esophageal dysphagia Health Maintenance Due Date Last Done Comments DTaP/Tdap/Td Vaccine (1 - Tdap) 1965 Hepatitis B Screening 1972 Pneumococcal vaccine 65+ (1 of 2 - PCV) 1973 Zoster Vaccine (1 of 2) 2004 Well Visit 65+ 11/23/2019 Covid-19 Vaccine (3 - 2023-2 5 season) 2023 05/17/2020, 04/26/2020 Influenza Vaccine (Season Ended) 2024 Breast Cancer Screening-Mammogram 04/24/2025 04/24/2024, 04/24/2024, 04/21/2023, Additional history exists Depression Screening 07/19/2025 07/19/2024, 03/23/2024, 09/15/2023 Fall Risk Assessment 07/19/2025 07/19/2024, 09/15/19 Osteoporosis Screening-Bone Density Scan 10/20/2025 10/21/2023, 10/21/2023 Colon Cancer Screening-DNA Stool 06/08/2027 06/07/2024, 09/14/2021, 06/02/2021 Hepatitis C Screening Completed 09/19/2023 Colon Cancer Screening-FIT Discontinued 06/07/2024 Procedures Procedure Name Priority Date/Time Associated Diagnosis Comments XR SHOULDER RIGHT 2 OR MORE VIEWS Schedule Routine, Read Routine (OP Routine) 07/19/2024 11:06 AM CDT Acute pain of right shoulder XR SPINE THORACIC 3 VIEWS Schedule Routine, Read Routine (OP Routine) 07/19/2024 11:06 AM CDT Chronic right-sided thoracic back pain XR SPINE LUMBAR 2 OR 3 VIEWS Schedule Routine, Read Routine (OP Routine) 07/19/2024 11:06 AM CDT Lumbar back pain CRP (ACUTE PHASE) Routine 07/19/2024 10: 54 AM CDT Multiple joint pain RHEUMATOID FACTOR Routine 07/19/2024 10: 54 AM CDT Rheumatoid factor positive ERYTHROCYTE SEDIMENTATION RATE Routine 07/19/2024 10:54 AM CDT Multiple joint pain ELADIO QUALITATIVE WITH REFLEX TO ELADIO QUANTITATIVE Routine 07/19/2024 10:54 AM CDT Multiple joint pain HEMOGLOBIN A1C Routine 07/19/2024 10:54 AM CDT Prediabetes XR CHEST PA LATERAL 2 VIEWS Routine 06/27/2024 3:04 PM CDT Subacute cough STOOL DNA COLOGUARD Routine 06/07/2024 8:01 AM CDT Screening for colon cancer US RUQ Schedule Routine, Read Routine (OP Routine) 05/22/2024 2:56 PM CDT RUQ pain HM DEXA SCAN Routine 10/21/2023 2:50 PM CDT HEPATITIS C ANTIBODY Routine 09/19/2023 10:14 AM CDT Encounter for hepatitis C screening test for low risk patient from Last 3 Months or Most Recently Relevant to Health Maintenance Results * XR Shoulder Right 2 or More Views (07/19/2024 11:06 AM CDT) Anatomical Region Laterality Modality Upper Extremities, Shoulder Right Digi junie Radiography 07/19/2024 1:45 PM CDT Narrative 07/19/2024 3:55 PM CDT EXAM DESCRIPTION: XR SPINE LUMBAR 2 OR 3 VIEWS; XR SHOULDER RIGHT 2 OR MORE VIEWS; XR SPINE THORACIC 3 VIEWS REASON FOR STUDY: lumbar back pain right shoulder injury x 6 weeks ago, pain/decreased ROM Right thoracic back pain, chronic Pt complains of right shoulder pain after tripping down her basement steps a few weeks ago. Pt complains of right mid spinal pain for months. No injury to the spine. FINDINGS: Two views lumbar spine, three views thoracic spine and four views right shoulder submitted with comparison 06/27/2024. Thoracic spine: No acute fracture. Alignment is normal. Mild midthoracic degenerative disc disease. Pacer is in place. Right axillary and neck surgical clips noted. Multilevel inferior cervical degenerative disc disease is present. Lumbar spine: No acute fracture. Grade 1 anterolisthesis of L5 on S1 with possible pars defects. Moderate L5-S1 degenerative disc disease with inferior lumbar facet osteoarthritis. Right shoulder: No acute fracture. Alignment is normal. The glenohumeral and acromioclavicular joints are normal. Inferior cervical foraminal impingement noted. IMPRESSION: No acute fracture. Mild midthoracic degenerative disc disease. Grade 1 anterolisthesis of L5 on S1 with possible pars defects. Moderate L5-S1 degenerative disc disease with inferior lumbar facet osteoarthritis. Findings can be further evaluated with cross-sectional imaging if clinically indicated. Normal right shoulder joint space evaluation. Inferior cervical degenerative disc disease with right-sided foraminal impingement. This can be further evaluated with dedicated cervical imaging. THIS IS AN ELECTRONICALLY VERIFIED FINAL REPORT 07/19/2024 3:55 PM - Electronically signed by Cas Dudley M.D. T: Report ID: [id number] Reading Location: [id number] Procedure Note Cas Dudley MD - 07/19/2024 EXAM DESCRIPTION: XR SPINE LUMBAR 2 OR 3 VIEWS; XR SHOULDER RIGHT 2 OR MORE VIEWS; XR SPINE THORACIC 3 VIEWS REASON FOR STUDY: lumbar back pain right shoulder injury x 6 weeks ago, pain/decreased ROM Right thoracic back pain, chronic Pt complains of right shoulder pain after tripping down her basement stepsa few weeks ago. Pt complains of right mid spinal pain for months. Noinjury to the spine. FINDINGS: Two views lumbar spine, three views thoracic spine and fourviews right shoulder submitted with comparison 06/27/2024. Thoracic spine: No acute fracture. Alignment is normal. Mild midthoracic degenerativedisc disease. Pacer is in place. Right axillary and neck surgical clipsnoted. Multilevel inferior cervical degenerative disc disease is present. Lumbar spine: No acute fracture. Grade 1 anterolisthesis of L5 on S1 with possible pars defects. Moderate L5-S1 degenerative disc disease with inferior lumbarfacet osteoarthritis. Right shoulder: No acute fracture. Alignment is normal. The glenohumeral and acromioclavicular joints are normal. Inferior cervical foraminalimpingement noted. IMPRESSION: No acute fracture. Mild midthoracic degenerative disc disease. Grade 1 anterolisthesis of L5 on S1 with possible pars defects. Moderate L5-S1 degenerative disc disease with inferior lumbar facet osteoarthritis. Findings can be further evaluated with cross-sectional imaging ifclinically indicated. Normal right shoulder joint space evaluation. Inferior cervical degenerative disc disease with right-sided foraminal impingement. This can be further evaluated with dedicated cervicalimaging. THIS IS AN ELECTRONICALLY VERIFIED FINAL REPORT 07/19/2024 3:55 PM - Electronically signed by Cas Dudley M.D. T: Report ID: [id number] Reading Location: [place] [address] Erikaantonio Marinelli NP IMG XR PROCEDURES Final Result * XR Spine Thoracic 3 Vw (07/19/2024 11:06 AM CDT) Anatomical Region Laterality Modality Spine N/A Digital Radiogra phy 07/19/2024 1:45 PM CDT Narrative 07/19/2024 3:55 PM CDT EXAM DESCRIPTION: XR SPINE LUMBAR 2 OR 3 VIEWS; XR SHOULDER RIGHT 2 OR MORE VIEWS; XR SPINE THORACIC 3 VIEWS REASON FOR STUDY: lumbar back pain right shoulder injury x 6 weeks ago, pain/decreased ROM Right thoracic back pain, chronic Pt complains of right shoulder pain after tripping down her basement steps a few weeks ago. Pt complains of right mid spinal pain for months. No injury to the spine. FINDINGS: Two views lumbar spine, three views thoracic spine and four views right shoulder submitted with comparison 06/27/2024. Thoracic spine: No acute fracture. Alignment is normal. Mild midthoracic degenerative disc disease. Pacer is in place. Right axillary and neck surgical clips noted. Multilevel inferior cervical degenerative disc disease is present. Lumbar spine: No acute fracture. Grade 1 anterolisthesis of L5 on S1 with possible pars defects. Moderate L5-S1 degenerative disc disease with inferior lumbar facet osteoarthritis. Right shoulder: No acute fracture. Alignment is normal. The glenohumeral and acromioclavicular joints are normal. Inferior cervical foraminal impingement noted. IMPRESSION: No acute fracture. Mild midthoracic degenerative disc disease. Grade 1 anterolisthesis of L5 on S1 with possible pars defects. Moderate L5-S1 degenerative disc disease with inferior lumbar facet osteoarthritis. Findings can be further evaluated with cross-sectional imaging if clinically indicated. Normal right shoulder joint space evaluation. Inferior cervical degenerative disc disease with right-sided foraminal impingement. This can be further evaluated with dedicated cervical imaging. THIS IS AN ELECTRONICALLY VERIFIED FINAL REPORT 07/19/2024 3:55 PM - Electronically signed by Cas Dudley M.D. T: Report ID: [id number] Reading Location: [place] [address] Procedure Note Cas Dudley MD - 07/19/2024 EXAM DESCRIPTION: XR SPINE LUMBAR 2 OR 3 VIEWS; XR SHOULDER RIGHT 2 OR MORE VIEWS; XR SPINE THORACIC 3 VIEWS REASON FOR STUDY: lumbar back pain right shoulder injury x 6 weeks ago, pain/decreased ROM Right thoracic back pain, chronic Pt complains of right shoulder pain after tripping down her basement stepsa few weeks ago. Pt complains of right mid spinal pain for months. Noinjury to the spine. FINDINGS: Two views lumbar spine, three views thoracic spine and fourviews right shoulder submitted with comparison 06/27/2024. Thoracic spine: No acute fracture. Alignment is normal. Mild midthoracic degenerativedisc disease. Pacer is in place. Right axillary and neck surgical clipsnoted. Multilevel inferior cervical degenerative disc disease is present. Lumbar spine: No acute fracture. Grade 1 anterolisthesis of L5 on S1 with possible pars defects. Moderate L5-S1 degenerative disc disease with inferior lumbarfacet osteoarthritis. Right shoulder: No acute fracture. Alignment is normal. The glenohumeral and acromioclavicular joints are normal. Inferior cervical foraminalimpingement noted. IMPRESSION: No acute fracture. Mild midthoracic degenerative disc disease. Grade 1 anterolisthesis of L5 on S1 with possible pars defects. Moderate L5-S1 degenerative disc disease with inferior lumbar facet osteoarthritis. Findings can be further evaluated with cross-sectional imaging ifclinically indicated. Normal right shoulder joint space evaluation. Inferior cervical degenerative disc disease with right-sided foraminal impingement. This can be further evaluated with dedicated cervicalimaging. THIS IS AN ELECTRONICALLY VERIFIED FINAL REPORT 07/19/2024 3:55 PM - Electronically signed by Cas Dudley M.D. T: Report ID: [id number] Reading Location: [place] [address] Erika Marinelli NP IMG XR PROCEDURES Final Result * XR Spine Lumbar 2 or 3 Views (07/19/2024 11:06 AM CDT) Anatomical Region Laterality Modality Spine N/A Digital Radiogra phy 07/19/2024 1:45 PM CDT Narrative 07/19/2024 3:55 PM CDT EXAM DESCRIPTION: XR SPINE LUMBAR 2 OR 3 VIEWS; XR SHOULDER RIGHT 2 OR MORE VIEWS; XR SPINE THORACIC 3 VIEWS REASON FOR STUDY: lumbar back pain right shoulder injury x 6 weeks ago, pain/decreased ROM Right thoracic back pain, chronic Pt complains of right shoulder pain after tripping down her basement steps a few weeks ago. Pt complains of right mid spinal pain for months. No injury to the spine. FINDINGS: Two views lumbar spine, three views thoracic spine and four views right shoulder submitted with comparison 06/27/2024. Thoracic spine: No acute fracture. Alignment is normal. Mild midthoracic degenerative disc disease. Pacer is in place. Right axillary and neck surgical clips noted. Multilevel inferior cervical degenerative disc disease is present. Lumbar spine: No acute fracture. Grade 1 anterolisthesis of L5 on S1 with possible pars defects. Moderate L5-S1 degenerative disc disease with inferior lumbar facet osteoarthritis. Right shoulder: No acute fracture. Alignment is normal. The glenohumeral and acromioclavicular joints are normal. Inferior cervical foraminal impingement noted. IMPRESSION: No acute fracture. Mild midthoracic degenerative disc disease. Grade 1 anterolisthesis of L5 on S1 with possible pars defects. Moderate L5-S1 degenerative disc disease with inferior lumbar facet osteoarthritis. Findings can be further evaluated with cross-sectional imaging if clinically indicated. Normal right shoulder joint space evaluation. Inferior cervical degenerative disc disease with right-sided foraminal impingement. This can be further evaluated with dedicated cervical imaging. THIS IS AN ELECTRONICALLY VERIFIED FINAL REPORT 07/19/2024 3:55 PM - Electronically signed by Cas Dudley M.D. T: Report ID: [id number] Reading Location: [id number] Procedure Note Cas Dudley MD - 07/19/2024 EXAM DESCRIPTION: XR SPINE LUMBAR 2 OR 3 VIEWS; XR SHOULDER RIGHT 2 OR MORE VIEWS; XR SPINE THORACIC 3 VIEWS REASON FOR STUDY: lumbar back pain right shoulder injury x 6 weeks ago, pain/decreased ROM Right thoracic back pain, chronic Pt complains of right shoulder pain after tripping down her basement stepsa few weeks ago. Pt complains of right mid spinal pain for months. Noinjury to the spine. FINDINGS: Two views lumbar spine, three views thoracic spine and fourviews right shoulder submitted with comparison 06/27/2024. Thoracic spine: No acute fracture. Alignment is normal. Mild midthoracic degenerativedisc disease. Pacer is in place. Right axillary and neck surgical clipsnoted. Multilevel inferior cervical degenerative disc disease is present. Lumbar spine: No acute fracture. Grade 1 anterolisthesis of L5 on S1 with possible pars defects. Moderate L5-S1 degenerative disc disease with inferior lumbarfacet osteoarthritis. Right shoulder: No acute fracture. Alignment is normal. The glenohumeral and acromioclavicular joints are normal. Inferior cervical foraminalimpingement noted. IMPRESSION: No acute fracture. Mild midthoracic degenerative disc disease. Grade 1 anterolisthesis of L5 on S1 with possible pars defects. Moderate L5-S1 degenerative disc disease with inferior lumbar facet osteoarthritis. Findings can be further evaluated with cross-sectional imaging ifclinically indicated. Normal right shoulder joint space evaluation. Inferior cervical degenerative disc disease with right-sided foraminal impingement. This can be further evaluated with dedicated cervicalimaging. THIS IS AN ELECTRONICALLY VERIFIED FINAL REPORT 07/19/2024 3:55 PM - Electronically signed by Cas Dudley M.D. T: Report ID: [id number] Reading Location: [place] [address] us Erika Marinelli NP IMG XR PROCEDURES Final Result * ELADIO ab ql w/rflx to ELADIO qn (07/19/2024 10:54 AM CDT) ELADIO Negative Comment: Interpretive Data Normal range for ELADIO Qualitative Antibody = Negative. 1. ELADIO is performed using indirect immunofluorescence against HEp-2 cells 2. ELADIO titers are performed on all positive qualitative results. 3. A significantly positive ELADIO result is defined as a positive nuclear fluorescence at a titer of 1:80 or greater. 4. 15% of normal people above age 65 have significantly positive ELADIO results. 5% or less of normal people age 65 or under have significantly positive ELADIO results. Current interpretive data was last revised on 2019. Testing performed by: [facility], [address] [place] [address] Blood 07/19/2024 10:5 4 AM CDT 07/20/2024 10:17 AM CDT us Erika Marinelli NP LAB BLOOD ORDERABLES Final Resul t TONA [id number] Department [place] [address] * Erythrocyte sedimentation rate (07/19/2024 10:54 AM CDT) Erythrocyte sedimentation rate 13 1 - 30 mm/hr Comment:Testing performed by : [facility], [facility], [place], [address] Blood 07/19/2024 10:5 4 AM CDT 07/19/2024 4:18 PM CDT us Shahn Marinelli CLERK CASHIER LAB BLOOD ORDERABLES Final Resul t Performing Organization Address City/[facility] Co de Phone Number TONA SANCHEZ [address] [facility] [place] [place] [address] * (ABNORMAL) Rheumatoid factor (07/19/2024 10:54 AM CDT) Rheumatoid factor, quant 18(H) <=15 IUnits/mL Blood 07/19/2024 10:5 4 AM CDT 07/19/2024 4:18 PM CDT us Erika Marinelli CLERK CASHIER LAB BLOOD ORDERABLES Final Resul t Performing Organization Address [facility] Co de Phone Number TONA [phone] [facility] [place] [address] * CRP (acute phase) (07/19/2024 10:54 AM CDT) Pathologist [facility] [place] CRP <3.0 <=10.0 mg/L Blood 07/19/2024 10:5 4 AM CDT 07/19/2024 4:18 PM CDT us Erika Marinelli CLERK CASHIER LAB BLOOD ORDERABLES Final Resul t Performing Organization Address [facility] de Phone Number TONA [phone] [address] Department [place] [address] * (ABNORMAL) Hemoglobin A1c (07/19/2024 10:54 AM CDT) Pathologist [facility] [place] Hgb A1C 6.3(H) 4.0 - 5.6 % Estimated Average Glucose 134 mg/dL TONA SANCHEZ Comment: The ADA recommends reporting an estimated Average Glucose (eAG) with all Hemoglobin A1c results using the equation derived from a study of 507 normal and diabetic adults. Minority populations were underrepresented and children were not included. (Diabetes Care 31:7156-1264, 2008). The eAG is not equivalent to a fasting glucose. Blood 07/19/2024 10:5 4 AM CDT 07/19/2024 4:18 PM CDT us Erika Marinelli NP LAB BLOOD ORDERABLES Final Resul t TONA SANCHEZ [address] Department [place] [address] * XR Chest Pa Lateral 2 Views (06/27/2024 3:04 PM CDT) Anatomical Region Laterality Modality Body, Chest N/A Digital Radiogra phy 06/29/2024 4:34 AM CDT Narrative 06/29/2024 4:37 AM CDT EXAM DESCRIPTION: XR CHEST PA LATERAL 2 VIEWS REASON FOR STUDY: Pt complains of cough for about three weeks. History of pacemaker, bradycardia and breast cancer. Ex-smoker; quitting 20 years ago. Pt smoked 1/2 PPD for about 20 years. TECHNIQUE: PA and lateral radiographic view(s) of the chest. COMPARISON: None FINDINGS: LUNGS: There is hyperinflation of the lungs. Biapical pleuroparenchymal scarring is noted. There is some bronchial wall thickening suggested bilaterally, as well as mild peribronchovascular opacity in the left lower lobe. These findings could be seen in the setting of bronchitis. Superimposed airspace disease difficult to exclude. No effusion or pneumothorax. HEART/MEDIASTINUM: Cardiac silhouette and mediastinal contours within normal limits. Atherosclerotic vascular calcifications are present. LINES/TUBES: Left-sided pacemaker is noted. Surgical clips at the level of the thoracic inlet to the left of midline, and overlying the soft tissues of the right breast and the right axillary region. BONES: No acute osseous abnormality. IMPRESSION: Bronchial wall thickening and peribronchovascular opacity as can be seen in the setting of bronchitis. Superimposed developing airspace disease in the medial left base not excluded. Follow-up recommended THIS IS AN ELECTRONICALLY VERIFIED FINAL REPORT 06/29/2024 4:37 AM - Electronically signed by Grecia Zepeda M.D. TW T: Report ID: [id number] Reading Location: [id number] Procedure Note Grecia Zepeda MD - 06/29/2024 EXAM DESCRIPTION: XR CHEST PA LATERAL 2 VIEWS REASON FOR STUDY: Pt complains of cough for about three weeks. History of pacemaker,bradycardia and breast cancer. Ex-smoker; quitting 20 years ago. Pt smoked 1/2 PPD for about 20 years. TECHNIQUE: PA and lateral radiographic view(s) of the chest. COMPARISON: None FINDINGS: LUNGS: There is hyperinflation of the lungs. Biapical pleuroparenchymal scarring is noted. There is some bronchial wallthickening suggested bilaterally, as well as mild peribronchovascular opacity in theleft lower lobe. These findings could be seen in the setting of bronchitis. Superimposed airspace disease difficult to exclude. No effusion or pneumothorax. HEART/MEDIASTINUM: Cardiac silhouette and mediastinal contours withinnormal limits. Atherosclerotic vascular calcifications are present. LINES/TUBES: Left-sided pacemaker is noted. Surgical clips at the levelof the thoracic inlet to the left of midline, and overlying the soft tissuesof the right breast and the right axillary region. BONES: No acute osseous abnormality. IMPRESSION: Bronchial wall thickening and peribronchovascular opacity ascan be seen in the setting of bronchitis. Superimposed developing airspace disease in the medial left base not excluded. Follow-up recommended THIS IS AN ELECTRONICALLY VERIFIED FINAL REPORT 06/29/2024 4:37 AM - Electronically signed by Grecia Zepeda M.D. TW T: Report ID: [id number] Reading Location: [place] [address] Rl Olvera MD IMG XR PROCEDURES Final Res ult * Stool DNA - Cologuard (06/07/2024 8:01 AM CDT) Stool DNA - Cologuard Negative Negative [employer] (CLIA #:[id number]) Comment: NEGATIVE TEST RESULT. A negative Cologuard result indicates a low likelihood that a colorectal cancer (CRC) or advanced adenoma (adenomatous polyps with more advanced pre-malignant features) is present. The chance that a person with a negative Cologuard test has a colorectal cancer is less than 1 in 1500 (negative predictive value >99.9%) or has an advanced adenoma is less than 5.3% (negative predictive value 94.7%). These data are based on a prospective cross-sectional study of 10,000 individuals at average risk for colorectal cancer who were screened with both Cologuard and colonoscopy. (Quincy Avila al, N Engl J Med 2014;370(14):7030-5570) The normal value (reference range) for this assay is negative. COLOGUARD RE-SCREENING RECOMMENDATION: Periodic colorectal cancer screening is an important part of preventive healthcare for asymptomatic individuals at average risk for colorectal cancer. Following a negative Cologuard result, the [place] [employer] Society and U.S. Multi-Society Task Force screening guidelines recommend a Cologuard re-screening interval of 3 years. References: [place] [employer] Guideline for Colorectal Cancer Screening: https://www.cancer.org/cancer/mbeko-pejoqg-paqxtt/tynjuypgf-mrltzhotn-kiynjxj/ac s-rec ommendations.html.; Andrade DK, Yazan POTTS, Yoly WestK, Colorectal Cancer Screening: Recommendations for Physicians and Patients from the U.S. Multi-Society Task Force on Colorectal Cancer Screening , Am J Gastroenterology 2017; 112:5521-7425. TEST DESCRIPTION: Composite algorithmic analysis of stool DNA-biomarkers with hemoglobin immunoassay. Quantitative values of individual biomarkers are not reportable and are not associated with individual biomarker result reference ranges. Cologuard is intended for colorectal cancer screening of adults of either sex, 45 years or older, who are at average-risk for colorectal cancer (CRC). Cologuard has been approved for use by the U.S. FDA. The performance of Cologuard was established in a cross sectional study of average-risk adults aged 50-84. Cologuard performance in patients ages 45 to 49 years was estimated by sub-group analysis of near-age groups. Colonoscopies performed for a positive result may find as the most clinically significant lesion: colorectal cancer [4.0%], advanced adenoma (including sessile serrated polyps greater than or equal to 1cm diameter) [20%] or non- advanced adenoma [31%]; or no colorectal neoplasia [45%]. These estimates are derived from a prospective cross-sectional screening study of 10,000 individuals at average risk for colorectal cancer who were screened with both Cologuard and colonoscopy. (Quincy Álvarez, N Engl J Med 2014;370(14):6452-2877.) Cologuard may produce a false negative or false positive result (no colorectal cancer or precancerous polyp present at colonoscopy follow up). A negative Cologuard test result does not guarantee the absence of CRC or advanced adenoma (pre-cancer). The current Cologuard screening interval is every 3 years. ([place] [employer] and U.S. Multi-Society Task Force). Cologuard performance data in a 10,000 patient pivotal study using colonoscopy as the reference method can be accessed at the following location: www.[employer]/results. Additional description of the Cologuard test process, warnings and precautions can be found at www.[employer].com. Stool 06/07/2024 8:01 AM CDT 06/09/2024 12:31 PM CDT us Erika Marinelli NP LAB BODY FLUIDS AND STOOLS ORDER ELOISA Final Result [employer] (CLIA #:[id number]) [address] [id number] * US RUQ (05/22/2024 2:56 PM CDT) Anatomical Region Laterality Modality Abdomen N/A Ultrasound 05/27/2024 9:24 PM CDT Narrative 05/27/2024 9:27 PM CDT EXAM DESCRIPTION: US RUQ REASON FOR STUDY: RUQ pain intermittently for 1 year TECHNIQUE: Ultrasound of the right upper quadrant of the abdomen was performed with grayscale and color doppler. COMPARISON: None FINDINGS: PANCREAS: Visualized portions of the pancreas are within normal limits. Portions of the pancreatic body and tail are obscured due to bowel gas. LIVER: The liver appears normal in echotexture and echogenicity. No focal lesion identified. The main portal vein is patent with antegrade flow. GALLBLADDER: The gallbladder appears unremarkable. No cholelithiasis. No gallbladder wall thickening or pericholecystic fluid. No positive sonographic Lincoln sign reported. BILIARY: There is no intrahepatic or extrahepatic biliary ductal dilatation. Common bile duct measures 7 mm in diameter. RIGHT KIDNEY: Normal size. Normal echogenicity. No solid mass or cyst. No hydronephrosis. Measures 10.8 cm in length. OTHER: No other significant findings. IMPRESSION: No acute abnormality. THIS IS AN ELECTRONICALLY VERIFIED FINAL REPORT 05/27/2024 9:27 PM - Electronically signed by Jethro Wong M.D. KT: ALONSO Report ID: [id number] Reading Location: [place] [address] Procedure Note Jethro Wong MD - 05/27/2024 EXAM DESCRIPTION: US RUQ REASON FOR STUDY: RUQ pain intermittently for 1 year TECHNIQUE: Ultrasound of the right upper quadrant of the abdomen wasperformed with grayscale and color doppler. COMPARISON: None FINDINGS: PANCREAS: Visualized portions of the pancreas are within normal limits. Portions of the pancreatic body and tail are obscured due to bowel gas. LIVER: The liver appears normal in echotexture and echogenicity. Nofocal lesion identified. The main portal vein is patent with antegrade flow. GALLBLADDER: The gallbladder appears unremarkable. No cholelithiasis.No gallbladder wall thickening or pericholecystic fluid. No positivesonographic Lincoln sign reported. BILIARY: There is no intrahepatic or extrahepatic biliary ductaldilatation. Common bile duct measures 7 mm in diameter. RIGHT KIDNEY: Normal size. Normal echogenicity. No solid mass or cyst.No hydronephrosis. Measures 10.8 cm in length. OTHER: No other significant findings. IMPRESSION: No acute abnormality. THIS IS AN ELECTRONICALLY VERIFIED FINAL REPORT 05/27/2024 9:27 PM - Electronically signed by Jethro Wong M.D. KT: ALONSO Report ID: [id number] Reading Location: [id number] Erika Marinelli NP IMG US PROCEDURES Final Result * HM DEXA SCAN (10/21/2023 2:50 PM CDT) Jesse Franklin MD HEALTH MAINTENANCE Final Result * Hepatitis C antibody Blood (09/19/2023 10:14 AM CDT) Hep C Ab Non Reactive Non Reactive [facility] - 01 Comment: HCV antibody alone does not differentiate between previously resolved infection and active infection. Equivocal and Reactive HCV antibody results should be followed up with an HCV RNA test to support the diagnosis of active HCV infection. Blood 09/19/2023 10:1 4 AM CDT 09/19/2023 Narrative [facility] - 09/20/2023 8:17 AM CDT Performed at: 01 - [address] [id number] Screw Machine Setter: Devonte Castañeda PhD, Phone: [phone] Erika Marinelli NP LAB MICROBIOLOGY - GENERAL ORDER ELOISA Final Result [facility] - 01 from Last 3 Months or Most Recently Relevant to Health Maintenance Insurance [facility] MEDICARE [facility] MEDICARE [facility] MEDICARE Care Teams Fruit Loader Machine Operator Relationship Specialty Start Date End Date Erika Marinelli NP [address] [facility] [address] [place] [address] PCP - General Family Medicine 09/15/23 Rosmery Cardoso MD [address] [facility] [address] [place] [address] Consulting Physician General Surgery 09/15/23 Thomas Gonsales MD [address] [facility] [address], [place] [address] Consulting Physician Interventional Cardiology 09/15/23 Jesse Monterroso MD [address] [facility] [address] [place] [address] Referring Physician Obstetrics and Gynecology 09/15/23
--- OUTSIDE RECORDS SUMMARY | 2024-07-31 07:06 | XMS_ITS | Referral Summary ---
Author Organization [facility] [address] Address [address] [place] [address] Care Team Providers Care Datacap Developer Name Role Phone Erika Marinelli NP Primary Care Provider [phone] Rosmery Cardoso MD Unavailable [phone] Thomas Gonsales MD Unavailable [phone] Jesse Monterroso MD Unavailable [phone] Encounters Date Type Department Care Team Description 07/31/2024 Hospital [facility] [address] [place] [address] John Stevens, 07/20/2024 Results Follow-Up [facility] Primary Care at [address] [phone] Erika Marinelli NP XR Spine Thoracic 3 Vw, Hemoglobin A1c, Erythrocyte sedimentation rate, Additional followed-up results: 3 07/19/2024 10:54 AM CDT - 07/19/2024 11:59 PM CDT Hospital Encounter [address] [address] Prediabetes; Multiple joint pain; Rheumatoid factor positive Discharge Disposition: Discharge to home or self care 07/19/2024 11:45 AM CDT Ancillary Procedure [facility] Imaging at [address] [phone] Chronic right-sided thoracic back pain 07/19/2024 11:30 AM CDT Ancillary Procedure [facility] Imaging at [address] [phone] Acute pain of right shoulder 07/19/2024 11:15 AM CDT Ancillary Procedure [facility] Imaging at [address] [phone] Lumbar back pain 07/19/2024 11:00 AM CDT Lab [facility] Outpatient Lab at [address] [phone] 07/19/2024 10:00 AM CDT Office Visit [facility] Primary Care at [address] [phone] Erika Marinelli NP Right upper quadrant pain (Primary Dx); Chronic right-sided thoracic back pain; Multiple joint pain; Rheumatoid factor positive; Prediabetes; Acute pain of right shoulder; Lumbar back pain 07/17/2024 Telephone [facility] Cardiology 10 [facility] [address] [place] [phone] Thomas Gonsales MD 07/13/2024 10:30 AM CDT Office Visit [facility] Cardiology [address] [place] [address] [address] [place] [phone] Mario Alberto Stallworth MD Paroxysmal atrial fibrillation (HCC) (Primary Dx); Cardiac pacemaker in situ; Peripheral vascular disease; Primary hypertension; Sinus node dysfunction (HCC); EVAN (obstructive sleep apnea); Former smoker 07/10/2024 Telephone [facility] Gastroenterology at [address] [place] [phone] [place] 07/01/2024 Results Follow-Up [facility] Primary Care at [address] [phone] Rl Olvera MD XR Chest Pa Lateral 2 Views 06/28/2024 Telephone [facility] Gastroenterology at [address] [place] [phone] John Stevens DO 06/27/2024 2:55 PM CDT Ancillary Procedure [facility] Imaging at [address] [phone] 06/27/2024 2:30 PM CDT Office Visit [facility] Medical [facility] Primary Care at [address] [phone] Rl Olvera MD Subacute cough (Primary Dx); Esophageal dysphagia 06/27/2024 Nurse Triage [facility] Primary Care at [address] [phone] Erika Marinelli NP 06/14/2024 Results Follow-Up [facility] Primary Care at [address] [phone] Erika Marinelli NP Stool DNA - Cologuard 05/28/2024 Results Follow-Up [facility] Primary Care at [address] [phone] Erika Marinelli NP US RUQ 05/22/2024 2:00 PM CDT - 05/22/2024 11:59 PM CDT Hospital Encounter [facility] [address] [place] [address] RUQ pain Discharge Disposition: Discharge to home or self care from Last 3 Months Allergies Active Allergy Reactions Criticality Noted Date [...] day as needed for cough 42 capsule 06/28/192024 Discontinued(N o longer taking - Do not [...] 05/03/2023 Assessment & Plan (03/23/2024 3:19 PM GRINDER SET UP OPERATOR GEAR TOOL): BP well controlled in office. Continuing Losartan [...] past. Assessment & Plan (03/23/2024 3:18 PM GRINDER SET UP OPERATOR GEAR TOOL): RF was mildly elevated x 6 months ago. Will recheck and pt will consider seeing Personal Chef, possibly through [facility] Assessment & Plan (09/15/2023 2:54 PM CDT): Positive RF 12/2022 from previous PCP. Will get updated labs and see about getting patient in with Personal Chef. Right upper quadrant pain 12/08/2022 Paroxysmal atrial [...] Dual Pacemaker. Dx; Symptomatic Bradycardia, CHB. [facility] [employer] remote monitoring. 08/30/2022-[employer] [facility] Chronic cough 01/08/2022 EVAN (obstructive sleep apnea) 01/08/2022 COVID-19 02/24/2020 Anxiety 03/14/2018 Cough 05/08/2009 Breast cancer 09/20/2008 Overview (09/15/2023): 09/21/07 Stage I ([id number]) IDC RIGHT breast TRIPLE NEGATIVE Ki67 36% [...] DEXA screen, patient gets this through her INTERPRETATIVE DANCER (Dr Robert Franklin). Scheduled to see him 10/2023 Pulmonary emphysema 09/20/2008 Tremor 09/20/2008 Malignant neoplasm of breast 09/20/2008 Overview (06/27/2024): 09/21/07 Stage I ([id number]) IDC RIGHT breast TRIPLE NEGATIVE Ki67 36% [...] feels like rib Same as last yaer Immunizations Immunization Administration Dates Next Due Influenza, Unspecified 02/28/2023(Deferr ed: Patient Refused),02/28/2022(Deferred: Patient Refused) Pfizer SARS-CoV-2 Monovalent Vaccination (12+ Yrs) PURPLE 05/17/2020,04/26/2020 Social History Tobacco Use Types Packs/Day Years [...] on file Legal Sex Female 6:35 AM GRINDER SET UP OPERATOR GEAR TOOL Gender Identity Female 10/01/2019 4:34 PM CDT Sexual Orientation Choose not to disclose 2019 4:34 PM CDT Last Filed Vital Signs Vital Sign Reading [...] Associated Diagnoses Date/Ti me ESOPHAGOGASTRODUODENOSCOPY Esophageal dysphagia Procedures Procedure Name Priority Date/Time Associated Diagnosis [...] by Cas Dudley M.D. T: Report ID: [id number] Reading Location: [id number] Procedure Note Cas Dudley MD - 07/19/2024 [...] by Cas Dudley M.D. T: Report ID: [id number] Reading Location: [id number] Erika Marinelli NP IMG XR PROCEDURES Final [...] by Cas Dudley M.D. T: Report ID: [id number] Reading Location: [id number] Procedure Note Cas Dudley MD - 07/19/2024 [...] by Cas Dudley M.D. T: Report ID: [id number] Reading Location: [id number] Erika Isis TOMPKINS IMG XR PROCEDURES Final Result * XR [...] by Cas Dudley M.D. T: Report ID: [id number] Reading Location: [id number] Procedure Note Cas Dudley MD - 07/19/2024 [...] by Cas Dudley M.D. T: Report ID: [id number] Reading Location: [place] [address] us Erika Marinelli BANQUET ATTENDANT IMG XR PROCEDURES Final Result * ELADIO [...] last revised on 2019. Testing performed by: [facility], [address] [place] [address], [place]., [address] Blood 07/19/2024 10:5 4 AM CDT 07/20/2024 10:17 AM CDT us Erika Marinelli NP LAB BLOOD ORDERABLES Final Resul t Performing Organization Address City/[facility]/ZIP Co de Phone Number TONA [address] [address] [place] [address] * Erythrocyte sedimentation rate (07/19/2024 10:54 AM CDT) Erythrocyte sedimentation rate 13 1 - 30 mm/hr Comment:Testing performed by : [facility], [facility], [place], [address] Blood 07/19/2024 10:5 4 AM CDT 07/19/2024 4:18 PM CDT us Erika Marinelli NP LAB BLOOD ORDERABLES Final Resul t TONA SANCHEZ [address] [facility] [place] [address] * (ABNORMAL) Rheumatoid factor (07/19/2024 10:54 AM CDT) [facility] Rheumatoid factor, quant 18(H) <=15 IUnits/mL Blood 07/19/2024 10:5 4 AM CDT 07/19/2024 4:18 PM CDT us Erika Marinelli NP LAB BLOOD ORDERABLES Final Resul t Performing Organization Address [facility] de Phone Number SIMINSHAD [address] [facility] [place] [address] * CRP (acute phase) (07/19/2024 10:54 AM CDT) [facility] CRP <3.0 <=10.0 mg/L Blood 07/19/2024 10:5 4 AM CDT 07/19/2024 4:18 PM CDT us Erika Marinelli NP LAB BLOOD ORDERABLES Final Resul t Performing Organization Address [facility] de Phone Number TONA [address] [facility] [place] [address] * (ABNORMAL) Hemoglobin A1c (07/19/2024 10:54 AM CDT) [facility] Hgb A1C 6.3(H) 4.0 - 5.6 % Estimated Average Glucose 134 mg/dL TONA SANCHEZ Comment: The ADA recommends reporting an estimated Average Glucose (eAG) with all Hemoglobin A1c results using the equation derived from a study of 507 normal and diabetic adults. Minority populations were underrepresented and children were not included. (Diabetes Care 31:4027-5156, 2008). The eAG is not equivalent to a fasting glucose. Blood 07/19/2024 10:5 4 AM CDT 07/19/2024 4:18 PM CDT us Erika Marinelli BANQUET ATTENDANT LAB BLOOD ORDERABLES Final Resul t TONA SANCHEZ [address] [address] Department [place] [address] * XR Chest Pa Lateral 2 Views [...] Grecia Zepeda M.D. TW T: Report ID: [id number] Reading Location: [id number] Procedure Note Grecia Zepeda MD - 06/29/2024 [...] Grecia Zepeda M.D. TW T: Report ID: [id number] Reading Location: [id number] Rl Olvera MD IMG XR PROCEDURES Final Res ult * Stool DNA - Cologuard (06/07/2024 8:01 AM CDT) Stool DNA - Cologuard Negative Negative [employer] (CLIA #:[id number]) Comment: NEGATIVE TEST RESULT. A negative Cologuard [...] (Quincy Avila al, N Engl J Med 2014;370(14):8498-2950) The normal value (reference range) for this assay is negative. COLOGUARD RE-SCREENING RECOMMENDATION: Periodic colorectal cancer screening is an important part of preventive healthcare for asymptomatic individuals at average risk for colorectal cancer. Following a negative Cologuard result, the [place] Cancer Society and U.S. Multi-Society Task Force screening guidelines recommend a Cologuard re-screening interval of 3 years. References: [place] Cancer Society Guideline for Colorectal Cancer Screening: https://www.cancer.org/cancer/tnpwk-nczdpf-vtemfv/cdddjruzq-qayuymwqm-pgzxjyn/ac s-rec ommendations.html.; Andrade DK, Yazan POTTS, Yoly WestK, Colorectal Cancer Screening: Recommendations for Physicians and Patients from the U.S. Multi-Society Task Force on Colorectal Cancer Screening , Am J Gastroenterology 2017; 112:3945-9578. TEST DESCRIPTION: Composite algorithmic analysis of stool [...] colonoscopy. (Quincy Álvarez, N Engl J Med 2014;370(14):2951-1283.) Cologuard may produce a false negative or false positive result (no colorectal cancer or precancerous polyp present at colonoscopy follow up). A negative Cologuard test result does not guarantee the absence of CRC or advanced adenoma (pre-cancer). The current Cologuard screening interval is every 3 years. ([place] Cancer Society and U.S. Multi-Society Task Force). Cologuard performance data in a 10,000 patient pivotal study using colonoscopy as the reference method can be accessed at the following location: www.[employer]/results. Additional description of the Cologuard test process, warnings and precautions can be found at www.AdAdaptedogPresella.comrd.com. Stool 06/07/2024 8:01 AM CDT 06/09/2024 12:31 PM CDT us Erika Marinelli NP LAB BODY FLUIDS AND STOOLS ORDER ELOISA Final Result [employer] (CLIA #:[id number]) [address] [place] [address] * US RUQ (05/22/2024 2:56 PM CDT) [...] thickening or pericholecystic fluid. No positive sonographic [place] sign reported. BILIARY: There is no intrahepatic [...] Jethro Wong M.D. KT: ALONSO Report ID: [id number] Reading Location: [id number] Procedure Note Jethro Wong MD - 05/27/2024 [...] wall thickening or pericholecystic fluid. No positivesonographic [place] sign reported. BILIARY: There is no intrahepatic [...] Jethro Wong M.D. KT: ALONSO Report ID: [id number] Reading Location: [id number] us Erika Marinelli NP IMG US PROCEDURES Final [...] 8:17 AM CDT Performed at: 01 - [address] [id number] Cancer Genetics Assistant: Devonte Castañeda PhD, Phone: [phone] Erika Marinelli NP LAB MICROBIOLOGY - GENERAL ORDER ELOISA Final Result [facility] 01 from Last 3 Months or Most Recently Relevant to Health Maintenance Insurance [facility] MEDICARE [facility] MEDICARE AETNA MEDICARE Care Teams Datacap Developer Relationship Specialty Start Date End Date Erika Marinelli NP [address] [facility] [address] [place] [address] PCP - General Family Medicine 09/15/23 Rosmery Cardoso MD [address] [address] Consulting Physician General Surgery 09/15/23 Thomas Gonsales MD [address] [facility] [address], [place] [address] Consulting Physician Interventional Cardiology 09/15/23 Jesse Monterroso MD [address] [facility] 162 [facility] [address] [place] [address] Referring Physician Obstetrics and Gynecology 09/15/23
--- OUTSIDE RECORDS SUMMARY | 2024-07-31 07:07 | XMS_ITS | Encounter Summary ---
Author Organization [facility] Address [address] [place] [address] Care Team Providers Care Sightseeing Guide Name Role Phone Ruddy Hobson MD Primary Care Provider [phone] Encounter Details Date Type Department Care Team (Late st Contact Info) Description 06/16/1998 Outpatient [facility] Primary Care - [address] [place] [address] Bernard Ferguson, DO * Social History Tobacco Use Types Packs/Day Years Used Date Smoking Tobacco: Never Assessed Comments Unknown Sex and Gender Information Value Date Recorded Sex Assigned at Not on file Legal Sex Female 3:53 AM CONVERSION MAN Gender Identity Not on file Sexual Orientation Not on file documented as of this encounter Plan of Treatment Not on file documented as of this encounter Visit Diagnoses Not on filedocumented in this encounter Care Teams Sightseeing Guide Relationship Specialty Start Date End Date Ruddy Hobson MD PCP - General Family Practice 02/09/19 documented as of this encounter
--- OUTSIDE RECORDS SUMMARY | 2024-07-31 07:07 | XMS_ITS | Data Portability ---
Author Organization [facility] [employer], Main Office [place] [address] [place] [address] Assessment No assessment recorded. Plan of Treatment Reminders Order Date Submit Date Provider Last Modified By Organization Details Last Modified Time Details Appointments None recorded. Lab lipid panel, serum 2022 023 [facility], [address] [place] [address], [place], [address], 16:12:09 CMP, serum or plasma 2022 023 [facility], [address] [place] [address], [place], [address], 16:12:07 TSH, ultra-sensi tive, serum 2022 023 [facility], [address] [place] [address], [place], [address], 16:12:11 rf (rheumatoid factor), serum 2022 023 [facility], [address] [place] [address], [place], [address], 16:12:10 C reactive protein, QN, serum or plasma 2022 023 [facility], [address] [place] [address], [place], [address], 16:12:14 erythrocyte sedimentati on rate by westergren method 2022 023 [facility], [address] [place] [address], [place], [address], 3 16:12:13 CBC w/ auto diff 2022 023 [facility], [address] [facility], [facility], [place], [address], 3 16:12:06 ELADIO (antinuclea r antibodies) screen, serum 2022 023 [facility], [address] [facility], [facility], [place], [address], 3 16:12:12 Referral None recorded. Procedures None recorded. Surgeries None recorded. Imaging XR, ribs, unilateral, w/ PA chest - breast cancer survivor 2007, right lower rib cage *Please call pt to schedule* 2022 023 [facility], 20[address] Merary Perez, [facility] [address], [place], [address], 3 17:18:33 US, gallbladder 2022 023 [facility], 2022 Merary Perez, [facility] [address], [place], [address], 3 10:11:12 Medication Orders None recorded. Patient TargetsNo targets recorded. Patient InstructionsNo instructions recorded. Reason for Referral None Reported. Results Created Date Observation Date Name Description Value Unit Range Abnormal Flag Note LastModifiedBy Organization Detail LastModifiedTime 11/11/19 21 11/10/2020 urina lysis , dipst ick Leukocytes (reference range: negative starr/ l) Negati ve Not Available [facility] , [address], [place], [address], 11/10/2020 10:20:59 11/11/19 21 11/10/2020 urina lysis , dipst ick Nitrite (reference rage: negative mg/dl) negati ve Not Available [facility] , [address], [place], [address], 11/10/2020 10:20:59 11/11/19 21 11/10/2020 urina lysis , dipst ick Urobilinogen (reference range: 0.2-1 mg/dl) 0.2 Not Available [address] , [address], [place], [address], 11/10/2020 10:20:59 11/11/19 21 11/10/2020 urina lysis , dipst ick Protein (reference range: negative mg/dl) Negati ve Not Available [address] , [address], [place], [address], 11/10/2020 10:20:59 11/11/19 21 11/10/2020 urina lysis , dipst ick pH (reference range: 5-7) 7.0 Not Available [facility] , [address], [place], [address], 11/10/2020 10:20:59 11/11/19 21 11/10/2020 urina lysis , dipst ick Blood (reference range: negative Mor/ l) Negati ve Not Available [address] , [address], [place], [address], 11/10/2020 10:20:59 11/11/19 21 11/10/2020 urina lysis , dipst ick Specific [place] (reference range: 1.005-1.030) 1.020 Not Available [address] , [address], [place], [address], 11/10/2020 10:20:59 11/11/19 21 11/10/2020 urina lysis , dipst ick Ketone (reference range: negative mg/dl) Negati ve Not Available [address] , [address], [place], [address], 11/10/2020 10:20:59 11/11/19 21 11/10/2020 urina lysis , dipst ick Bilirubin (reference range: negative mg/dl) Negati ve Not Available [address] , [address], [place], [address], 11/10/2020 10:20:59 11/11/19 21 11/10/2020 urina lysis , dipst ick Glucose (reference range: negative mg/dl) Negati ve Not Available [address] , [address], [place], [address], 11/10/2020 10:20:59 11/11/19 21 11/10/2020 urina lysis , dipst ick Appearance Clear Not Available [address] , [address], [place], [address], 11/10/2020 10:20:59 11/11/19 21 11/10/2020 urina lysis , dipst ick Color Yellow Not Available [address] , [address], [place], [address], 11/10/2020 10:20:59 11/11/19 21 11/11/2020 VITAM IN B12 vitamin B12 765 pg/mL 232-12 45 Not Available [facility] ([facility]) [address] [facility], [place], [address], 11/11/2020 04:07:46 05/01/19 22 05/01/2021 MAGNE SIUM magnesium 1.9 mg/dL 1.6-2. 3 Not Available [facility] ([facility]) [address] [facility], [place], [address], 05/01/2021 03:07:39 05/01/19 22 05/01/2021 CREAT INE JER Moses,TOT AL creatine kinase,total 77 U/L 32-182 Not Available [facility] ([facility]) [address] [facility], [place], [address], 05/01/2021 03:07:38 06/03/19 22 06/02/2021 COLOG UARD cologuard result reportable negati ve negati ve NEGAT ALECIA TEST RESUL T. A negat alecia Colog uard resul t indic ates a low likel ihood that a color ectal cance r (CRC) or advan rishi adeno ma (benny omato us polyp s with more advan rishi pre-m align ant featu res) is prese nt. The chanc e that a perso n with a negat alecia Colog uard test has a color ectal cance r is less than 1 in 1500 (nega tive predi ctive value >99.9 %) or has an advan rishi adeno ma is less than 5.3% (nega tive predi ctive value 94.7% ). These data are based on a prosp ectiv e cross -sect ional study of 10,00 0 indiv idual s at [place] risk for color ectal cance r who were scree hitesh with both Colog uard and colon oscop y. (Serena Carias et al, N Engl J Med 2014; 370(1 4):12 86-12 97) The riana l value (refe rence range ) for this assay is negat alecia. COLOG UARD RE-SC REENI NG RECOM MENDA TION: Perio dic color ectal cance r scree hayes is an impor tant part of preve ntive healt hcare for asymp tomat ic indiv idual s at [facility] risk for color ectal cance r. Follo wing a negat alecia Colog uard resul t, the Ameri can Cance r Socie ty and U.S. Multi -Soci ety Task Force scree hayes guide lines recom mend a Colog uard re-sc driss simon inter valencia of 3 years . Refer ences : Ameri can Cance r Socie ty Guide line for Color ectal Cance r Scree hayes: https ://joyce w.can cer.o rg/ca ncer/ colon -rect al-ca ncer/ detec tion- diagn osis- stagi ng/ac s-rec ommen datio ns.ht ml.; Andrade MAYO, David gallardo CR, Brown WestK, Color ectal Cance r Scree hayes: Recom menda tions for Physi cians and Patie nts from the U.S. Multi -Soci ety Task Force on Color ectal Cance r Scree hayes , Am Brett camacho rolog y 2017; 112:1 016-1 030. TEST DESCR IPTIO N: [place] site algor ithmi c angel sis of stool DNA-b sterling perry with hemog lobin immun oassa y. Quant itati ve value s of indiv idual bioma rkers are not repor table and are not assoc iated with indiv idual bioma rker resul t refer ence range s. Colog uard is inten ded for color ectal cance r scree hayes of adult s of eithe r sex, 45 years or older , who are at [facility] for color ectal cance r (CRC) . Colog uard has been appro galilea for use by the U.S. FDA. The perfo rmanc e of Colog uard was estab lishe d in a cross secti onal study of [facility] adult s aged 50-84 . Colog uard perfo rmanc e in patie nts ages 45 to 49 years was estim ated by asad-g luanp angel sis of near- age group s. Colon oscop ies perfo rmed for a posit alecia resul t may find as the most clini vito signi fican t lesio n: color ectal cance r [4.0% ], advan rishi adeno ma (incl uding sessi le sakina magalys polyp s great er than or equal to 1cm diame ter) [20%] or non- advan rishi adeno ma [31%] ; or no color ectal neopl arthur [45%] . These estim ates are deriv ed from a prosp ectiv e cross -sect ional scree hayes study of 0 indiv idual s at [place] risk for color ectal cance r who were scree hitesh with both Colog uard and colon oscop y. (Serena Carias et al, N Engl J Med 2014; 370(1 4):12 86-12 97.) Colog uard may produ ce a false negat alecia or false posit alecia resul t (no color ectal cance r or preca ncero us polyp prese nt at colon oscop y follo w up). A negat alecia Colog uard test resul t does not guara ntee the absen ce of CRC or advan rishi adeno ma (pre- cance r). The curre nt Colog uard scree hayes inter valencia is every 3 years . (Amer ican Cance r Socie ty and U.S. Multi -Soci ety Task Force ). Colog uard perfo rmanc e data in a 0 patie nt pivot al study using colon oscop y as the refer ence metho d can be acces sed at the [facility] wing locat ion: www.e xactl abs.c om/re kvng . Addit ional descr iptio n of the Colog uard test proce ss, warni ngs and preca ution s can be found at www.c ologu castro.c om. Not Available [employer] (Cologuard Orders Only) [address], [place], [address], 06/08/2021 18:27:41 12/10/19 23 12/09/2022 CBC WITH DIFFE RENTI AL/PL ATELE T WBC 6.1 x10e3 /uL 3.4-10 .8 Not Available [facility] ([facility]) [address], [place], [address], 12/10/2022 16:12:06 12/10/19 23 12/09/2022 CBC WITH DIFFE RENTI AL/PL ATELE T RBC 4.59 x10e6 /uL 3.77-5 .28 Not Available [facility] ([facility]) [address] [facility], [place], [address], 12/10/2022 16:12:06 12/10/1912/09/2022 CBC WITH DIFFE RENTI AL/PL ATELE T hemoglobin 13.9 g/dL 11.1-1 5.9 Not Available [facility] ([facility]) [address] [facility], [place], [address], 12/10/2022 16:12:06 12/10/1912/09/2022 CBC WITH DIFFE RENTI AL/PL ATELE T hematocrit 43.0 % 34.0-4 6.6 Not Available [facility] ([facility]) [address] [place], [address], 12/10/2022 16:12:06 12/10/1912/09/2022 CBC WITH DIFFE RENTI AL/PL ATELE T MCV 94 fL 79-97 Not Available [facility] ([facility]) [address] [place], [address], 12/10/2022 16:12:06 12/10/1912/09/2022 CBC WITH DIFFE RENTI AL/PL ATELE T MCH 30.3 pg 26.6-3 3.0 Not Available [facility] ([facility]) [address] [place], [address], 12/10/2022 16:12:06 12/10/1912/09/2022 CBC WITH DIFFE RENTI AL/PL ATELE T MCHC 32.3 g/dL 31.5-3 5.7 Not Available [facility] ([facility]) [address] [place], [address], 12/10/2022 16:12:06 12/10/19 23 12/09/2022 CBC WITH DIFFE RENTI AL/PL ATELE T RDW 12.4 % 11.7-1 5.4 Not Available [facility] ([facility]) [address] [facility], [place], [address], 12/10/2022 16:12:06 12/10/19 23 12/09/2022 CBC WITH DIFFE RENTI AL/PL ATELE T platelets 174 x10e3 /uL 150-45 0 Not Available [facility] ([facility]) [address] [facility], [place], [address], 12/10/2022 16:12:06 12/10/1912/09/2022 CBC WITH DIFFE RENTI AL/PL ATELE T neutrophils 77 % not estab. Not Available [facility] ([facility]) [address] [facility], [place], [address], 12/10/2022 16:12:06 12/10/19 23 12/09/2022 CBC WITH DIFFE RENTI AL/PL ATELE T lymphs 13 % not estab. Not Available [facility] ([facility]) [address] [facility], [place], [address], 12/10/2022 16:12:06 12/10/1912/09/2022 CBC WITH DIFFE RENTI AL/PL ATELE T monocytes 8 % not estab. Not Available [facility] ([facility]) [address] [facility], [place], [address], 12/10/2022 16:12:06 12/10/1912/09/2022 CBC WITH DIFFE RENTI AL/PL ATELE T eos 2 % not estab. Not Available [facility] ([facility]) [address] [facility], [place], [address], 12/10/2022 16:12:06 12/10/19 23 12/09/2022 CBC WITH DIFFE RENTI AL/PL ATELE T basos 0 % not estab. Not Available [facility] ([facility]) [address] [place], [address], 12/10/2022 16:12:06 12/10/19 23 12/09/2022 CBC WITH DIFFE RENTI AL/PL ATELE T immature cells DIPLOMATIC OFFICER Not Available [facility] ([facility]) [address] [place], [address], 12/10/2022 16:12:06 12/10/1912/09/2022 CBC WITH DIFFE RENTI AL/PL ATELE T neutrophils (absolute) 4.7 x10e3 /uL 1.4-7. 0 Not Available [facility] ([facility]) [address] [facility], [place], [address], 12/10/2022 16:12:06 12/10/19 23 12/09/2022 CBC WITH DIFFE RENTI AL/PL ATELE T lymphs (absolute) 0.8 x10e3 /uL 0.7-3. 1 Not Available [facility] ([facility]) [address] [place], [address], 12/10/2022 16:12:06 12/10/19 23 12/09/2022 CBC WITH DIFFE RENTI AL/PL ATELE T monocytes(ab solute) 0.5 x10e3 /uL 0.1-0. 9 Not Available [facility] ([facility]) [address] [place], [address], 12/10/2022 16:12:06 12/10/19 23 12/09/2022 CBC WITH DIFFE RENTI AL/PL ATELE T eos (absolute) 0.1 x10e3 /uL 0.0-0. 4 Not Available [facility] ([facility]) [address] [place], [address], 12/10/2022 16:12:06 12/10/1912/09/2022 CBC WITH DIFFE RENTI AL/PL ATELE T baso (absolute) 0.0 x10e3 /uL 0.0-0. 2 Not Available [facility] ([facility]) [address] [facility], [place], [address], 12/10/2022 16:12:06 12/10/19 23 12/09/2022 CBC WITH DIFFE RENTI AL/PL ATELE T immature granulocytes 0 % not estab. Not Available [facility] ([facility]) [address] [facility], [place], [address], 12/10/2022 16:12:06 12/10/1912/09/2022 CBC WITH DIFFE RENTI AL/PL ATELE T immature grans (abs) 0.0 x10e3 /uL 0.0-0. 1 Not Available [facility] ([facility]) [address] [facility], [place], [address], 12/10/2022 16:12:06 12/10/19 23 12/09/2022 CBC WITH DIFFE RENTI AL/PL ATELE T NRBC DIPLOMATIC OFFICER Not Available [facility] ([facility]) [address] [facility], [place], [address], 12/10/2022 16:12:06 12/10/19 23 12/09/2022 CBC WITH DIFFE RENTI AL/PL ATELE T hematology comments: DIPLOMATIC OFFICER Not Available [facility] ([facility]) [address] [facility], [place], [address], 12/10/2022 16:12:06 12/10/1912/10/2022 COMP. METAB OLIC PANEL (14) glucose 87 mg/dL 70-99 Not Available [facility] ([facility]) [address] [facility], [place], [address], 12/10/2022 16:12:07 12/10/1912/10/2022 COMP. METAB OLIC PANEL (14) BUN 10 mg/dL 8-27 Not Available [facility] ([facility]) [address] [facility] [place], [address], 12/10/2022 16:12:07 12/10/19 23 12/10/2022 COMP. METAB OLIC PANEL (14) creatinine 0.67 mg/dL 0.57-1 .00 Not Available [facility] ([facility]) [address] [facility] [place], [address], 12/10/2022 16:12:07 12/10/19 23 12/10/2022 COMP. METAB OLIC PANEL (14) eGFR 95 mL/mi n/1.7 3 >59 Not Available [facility] ([facility]) [address] [facility] [place], [address], 12/10/2022 16:12:07 12/10/19 23 12/10/2022 COMP. METAB OLIC PANEL (14) BUN/creatini ne ratio 15 12-28 Not Available [facility] ([facility]) [address] [facility] [place], [address], 12/10/2022 16:12:07 12/10/19 23 12/10/2022 COMP. METAB OLIC PANEL (14) sodium 134 mmol/ L 134-14 4 Not Available [facility] ([facility]) [address] [facility] [place], [address], 12/10/2022 16:12:07 12/10/19 23 12/10/2022 COMP. METAB OLIC PANEL (14) potassium 4.5 mmol/ L 3.5-5. 2 Not Available [facility] ([facility]) [address] [facility] [place], [address], 12/10/2022 16:12:07 12/10/19 23 12/10/2022 COMP. METAB OLIC PANEL (14) chloride 96 mmol/ L 96-106 Not Available [facility] ([facility]) [address] [place], [address], 12/10/2022 16:12:07 12/10/19 23 12/10/2022 COMP. METAB OLIC PANEL (14) carbon dioxide, total 23 mmol/ L 20-29 Not Available [facility] ([facility]) [address] [facility], [place], [address], 12/10/2022 16:12:07 12/10/19 23 12/10/2022 COMP. METAB OLIC PANEL (14) calcium 9.4 mg/dL 8.7-10 .3 Not Available [facility] ([facility]) [address] [facility], [place], [address], 12/10/2022 16:12:07 12/10/1912/10/2022 COMP. METAB OLIC PANEL (14) protein, total 6.6 g/dL 6.0-8. 5 Not Available [facility] ([facility]) [address] [facility], [place], [address], 12/10/2022 16:12:07 12/10/19 23 12/10/2022 COMP. METAB OLIC PANEL (14) albumin 4.5 g/dL 3.9-4. 9 Not Available [facility] ([facility]) [address] [facility], [place], [address], 12/10/2022 16:12:07 12/10/19 23 12/10/2022 COMP. METAB OLIC PANEL (14) globulin, total 2.1 g/dL 1.5-4. 5 Not Available [facility] ([facility]) [address] [facility], [place], [address], 12/10/2022 16:12:07 12/10/1912/10/2022 COMP. METAB OLIC PANEL (14) A/G ratio 2.1 1.2-2. 2 Not Available [facility] ([facility]) [address] [facility], [place], [address], 12/10/2022 16:12:07 12/10/19 23 12/10/2022 COMP. METAB OLIC PANEL (14) bilirubin, total 0.6 mg/dL 0.0-1. 2 Not Available [facility] ([facility]) [address] [place], [address], 12/10/2022 16:12:07 12/10/1912/10/2022 COMP. METAB OLIC PANEL (14) alkaline phosphatase 81 IU/L 44-121 Not Available [facility] ([facility]) [address] [place], [address], 12/10/2022 16:12:07 12/10/1912/10/2022 COMP. METAB OLIC PANEL (14) AST (SGOT) 20 IU/L 0-40 Not Available [facility] ([facility]) [address] [place], [address], 12/10/2022 16:12:07 12/10/1912/10/2022 COMP. METAB OLIC PANEL (14) ALT (SGPT) 15 IU/L 0-32 Not Available [facility] ([facility]) [address] [place], [address], 12/10/2022 16:12:07 12/10/19 23 12/10/2022 LIPID PANEL cholesterol, total 214 mg/dL 100-19 9 above high normal Not Available [facility] ([facility]) [address] [place], [address], 12/10/2022 16:12:09 12/10/1912/10/2022 LIPID PANEL triglyceride s 65 mg/dL 0-149 Not Available [facility] ([facility]) [address] [place], [address], 12/10/2022 16:12:09 12/10/19 23 12/10/2022 LIPID PANEL HDL cholesterol 114 mg/dL >39 Not Available [facility] ([facility]) [address] [facility], [place], [address], 12/10/2022 16:12:09 12/10/1912/10/2022 LIPID PANEL VLDL cholesterol enzo 11 mg/dL 5-40 Not Available [facility] ([facility]) [address] [facility], [place], [address], 12/10/2022 16:12:09 12/10/1912/10/2022 LIPID PANEL LDL chol calc ([facility]) 89 mg/dL 0-99 Not Available [facility] ([facility]) [address] [facility], [place], [address], 12/10/2022 16:12:09 12/10/1912/10/2022 LIPID PANEL comment: DIPLOMATIC OFFICER Not Available [facility] ([facility]) [address] [facility], [place], [address], 12/10/2022 16:12:09 12/10/1912/10/2022 RHEUM ATOID FACTO R (RF) rheumatoid factor (rf) 24.2 IU/mL <14.0 above high normal Not Available [facility] ([facility]) [address] [facility], [place], [address], 12/10/2022 16:12:10 12/10/1912/10/2022 TSH RFX ON ABNOR MAL TO FREE T4 TSH 1.680 uIU/m L 0.450- 4.500 Not Available [facility] ([facility]) [address] [facility], [place], [address], 12/10/2022 16:12:11 12/10/1912/10/2022 ANTIN UCLEA R AB MULTI PLEX RFX 9 ELADIO direct NEGATI VE negati ve Not Available [facility] ([facility]) [address] [facility], [place], [address], 12/10/2022 16:12:12 12/10/1912/10/2022 SEDIM ENTAT ION RATE- WESTE RGREN sedimentatio n rate-westerg cesilia 7 mm/HR 0-40 Not Available [facility] ([facility]) [address] [facility], [place], [address], 12/10/2022 16:12:13 12/10/19 23 12/10/2022 C-YOEL CTIVE PROTE IN, QUANT C-reactive protein, quant 1 mg/L 0-10 Not Available [facility] ([facility]) [address] [facility], [place], [address], 12/10/2022 16:12:14 11/11/19 21 tibia /fibu la 2 vws, left [facility] [address] [place] [address] [phone] Patien t Name: JANET WAGNER Access ion #: [id number] Sex: F : 1955 2 Locati on: RA2 Attend ing Physic ismael: ELKHAT IB, RUNDA Orderi aurora Physic ismael: ELKHAT IB, RUNDA Exam Date: 021 9:24 AM Exam Name: XR TIBIA/ FIBULA LT 2V Admitt ing Diagno sis(es ): RADIOL OGY REPORT - FINAL EXAM: XR TIBIA/ FIBULA LT 2V HISTOR Y: pain COMPAR HAILEY: None. TECHNI QUE: AP and latera l images are review ed. FINDIN GS: Examin ation of the left tibia and fibula fails to reveal radiog raphic eviden ce of fractu re, disloc ation, or bony produc tion. There is no degene rative or erosiv e arthro toni visual ized. No foreig n body is identi fied. If clinic al sympto ms persis t or worsen , then follow -up x-ray is recomm ended Page 1 of 2 [facility] Patien t Name: JANET WAGNER Access ion #: [id number] Sex: F : 1955 2 Exam Date: 9:24 AM Exam Name: XR TIBIA/ FIBULA LT 2V Admitt ing Diagno sis(es ): 7-10 days. This could be all possib ility of an occult fractu re. IMPRES ANDREW: No radiog raphic eviden ce of bone or joint diseas e of the left tibia- fibula . Create d and electr onical ly signed by: Darron horowitz MD Signed Date: 11:02 AM (CT) Dictat ed by: Darron horowitz MD DD: 11:02 AM (CT) DT: 11:02 AM (CT) Page 2 of 2 [facility]. [facility] (Imaging) [address] [place], [address], 04/28/2022 08:25:10 11/11/19 21 11/10/2020 XR, tibia + fibul a No observ ation record ed. MIGRATION. [facility] [address] [place], [address], 04/28/2022 08:25:10 07/15/19 22 07/13/2021 XR, elbow No observ ation record ed. MIGRATION. [address], [place], [address], 04/28/2022 08:25:10 11/20/19 22 11/19/2021 XR, chest , 2 view No observ ation record ed. MIGRATION. [id number] [facility] [address] [place], [address], 04/28/2022 08:25:10 03/03/19 23 03/03/2022 imagi ng/di agnos tic resul t No observ ation record ed. M[facility]ATION. [id number] [facility] [address] [place], [address], 04/28/2022 08:25:10 05/08/19 23 05/04/2022 PFT, compl ete No observ ation record ed. [email or web address] Not Available 2022 09:03:20 06/03/19 23 06/01/2022 imagi ng/di agnos tic resul t No observ ation record ed. [address], [place], [address], 06/02/2022 08:34:41 06/12/19 23 05/04/2022 PFT, compl ete No observ ation record ed. [email or web address] Not Available 2022 13:11:06 07/08/19 23 06/29/2022 CT, chest , w/o contr ast No observ ation record ed. [address]: Pulmonology [address] [facility], [place], [address], 07/07/2022 15:34:58 08/10/19 23 08/09/2022 XR, chest , 2 view No observ ation record ed. [address], [place], [address], 08/09/2022 14:32:03 08/12/19 23 08/10/2022 US, doppl er echoc ardio gram No observ ation record ed. [address], [place], [address], 08/12/2022 08:24:20 08/13/1908/12/2022 XR, chest , 2 view No observ ation record ed. [address], [place], [address], 08/12/2022 10:20:03 08/13/19 23 08/11/2022 XR, chest , 2 view No observ ation record ed. [address], [place], [address], 08/12/2022 11:24:33 08/13/19 23 08/11/2022 imagi ng/di agnos tic resul t No observ ation record ed. [email or web address] [facility] [address], [place], [address], 08/13/2022 10:30:22 12/22/19 23 12/21/2022 US, gallb ladde r No observ ation record ed. [email or web address] [facility] [address], [place], [address], 12/21/2022 12:01:19 02/03/20 23 02/02/2023 XR, ribs, unila teral , w/ PA chest No observ ation record ed. [email or web address] [facility] [address], [place], [address], 03/10/2023 13:02:15 02/03/20 23 02/02/2023 XR, ribs, unila teral , w/ PA chest No observ ation record ed. [email or web address] [facility] [address], [place], [address], 03/10/2023 13:02:15 02/03/20 23 02/02/2023 XR, ribs, unila teral , w/ PA chest No observ ation record ed. [facility] [address], [place], [address], 02/12/2023 10:24:15 07/22/19 24 07/22/2023 XR, chest No observ ation record ed. [email or web address] [facility] [address], [place], [address], 07/26/2023 14:35:50 Result Notes None recorded. Problems Name Problem SNOMED Code Status Onset Date Resolution Date Notes Provider Name and Address Organization Details Recorded Time Malignant tumor of breast 090635508 Active 2018 Not Available [facility] 3 08:22:11 Anxiety 08329200 Active 2018 Not Available [facility] 3 08:22:11 COVID-19 225029483 Active 2019 Not Available [facility] 3 08:22:11 Right upper quadrant pain 543528770 Active 2022 Ruddy Hobson MD [address], [place], [address] , [facility] 3 12:02:57 Pain of multiple joints 64240463 Active 2022 Ruddy Hobson MD [address], [place], [address] , [facility] 3 12:06:22 Mixed hyperlipid emia 588766601 Active 2022 Ruddy Hobson MD [address], [place], [address] , [facility] 3 12:08:17 Lateral epicondyli tis of right humerus 9281561932172 07 Active 2022 Ruddy Hobson MD [address], [place], [address] , [facility] 3 12:09:07 Chronic abdominal pain 559925403 Active 2022 Ruddy Hobson MD [address], [place], [address] , [facility] 3 10:44:28 Rib pain 890804840 Active 2022 CHICO Blevins [address], [place], [address] , [employer] 3 13:08:04 Problem Notes None recorded. Procedures Surgical History Date Name Laterality Status Provider Name and Address Organization Details Recorded Time 07/30/19 23 Pacemaker completed Melisa Wang CMA [employer] [facility] [employer] 12/08/2022 11:43:00 Dilation and curettage completed Not Available [facility] 04/28/2022 08:19:06 ligation of fallopian tube completed Not Available [facility] 04/28/2022 08:19:06 Tonsillectomy completed Not Available [facility] 04/28/2022 08:19:06 partial substernal thyroidectomy completed Not Available [facility] 04/28/2022 08:19:06 Nipple exploration completed Not Available [facility] 04/28/2022 08:19:06 lumpectomy of breast completed Not Available [facility] 04/28/2022 08:19:06 Imaging Results None recorded. Procedure Notes None recorded. Medical Equipment None Reported. Allergies Allergen ID Allergen Name Allergen Category Reaction Reaction Severity Criticality Documentation Date Start Date Code Code System Note Provider Name and Address Organization Details Recorded Time Product containin g penicilli n (product) medicatio n Not available Not available Not available 04/28/2022 80325 8001 SNOMED Not Available [facility] 3 08:25:05 55908 codeine medicatio n Not available Not available Not available 04/28/2022 2670 RxNorm Not Available [facility] 3 08:25:05 62214 azithromy milena medicatio n diarrhea Not available Not available 04/28/2022 37833 RxNorm Not Available [facility] 3 08:25:05 Medications Name Sig Start Date Stop Date Status Note LastModified by Organization Details LastModified Time Singulair 10 mg tablet Take 1 tablet every day by oral route. 10/24 completed Not Available Not Available Not Available losartan 50 mg tablet TK 1 T PO QD 10/24 completed Not Available Not Available Not Available prednisone 10 mg tablet active Not Available Not Available Not Available clindamycin HCl 300 mg capsule TAKE 1 CAPSULE BY MOUTH EVERY 12 HOURS 12/08 completed Not Available Not Available Not Available cetirizine 10 mg tablet Take 1 tablet every day by oral route. 12/08 completed Not Available Not Available Not Available azithromyci n 250 mg tablet TK 2 TS PO ON DAY 1, THEN TK 1 T PO D FOR 4 DAYS active Not Available Not Available No t Available benzonatate 200 mg capsule TAKE 1 CAPSULE BY MOUTH EVERY 8 HOURS FOR 7 DAYS NEEDED active Not Available Not Available No t Available nifedipine ER 30 mg tablet,exte nded release 06/08 completed Not Available Not Available Not Available amlodipine 5 mg tablet TK 1 T PO QD 06/08 completed Not Available Not Available Not Available triamcinolo ne acetonide 0.1 % topical cream APPLY A THIN LAYER TO THE AFFECTED AREA(S) BY TOPICAL ROUTE 2 TIMES PER DAY active Not Available Not Available No t Available spironolact one 25 mg tablet active Not Available Not Available Not Available alprazolam 0.25 mg tablet TK 1 T PO QD active Not Available Not Available No t Available amlodipine 10 mg tablet 12/08 completed Not Available Not Available Not Available cranberry fruit 400 mg capsule Take 1 capsule every day by oral route. 12/08 completed Not Available Not Available Not Available Longs Adult Low Strength ASA 81 mg tablet,kelli yed release Take 1 tablet every day by oral route. active Not Available Not Available No t Available furosemide 20 mg tablet TAKE 1 TABLET BY MOUTH EVERY DAY 12/08 completed Not Available Not Available Not Available albuterol sulfate HFA 90 mcg/actuati on aerosol inhaler INHALE 2 PUFFS BY MOUTH EVERY 6 HOURS FOR 10 DAYS NEEDED active Not Available Not Available No t Available losartan 100 mg tablet TK 1 T PO QD active Not Available Not Available No t Available fluticasone propionate 50 mcg/actuati on nasal spray,suspe nsion 2 sprays each nostril active Not Available Not Available No t Available clindamycin phosphate 1 % topical solution APPLY 2 DROPS DAILY TO PROCEDURE SITE DIRECTED 12/08 completed Not Available Not Available Not Available neomycin 3.5 mg/g-polymy lynn B 10,000 unit/g-dexa meth 0.1 % eye oint active Not Available Not Available Not Available cyclobenzap rine 5 mg tablet Take 1 tablet 3 times a day by oral route as needed. active Not Available Not Available No t Available magnesium 2019 active Not Available Not Available Not Avai lable Super B Complex 100 11/10 completed Not Available Not Available Not Available Daily Multi-Vitam in 03/28 completed Not Available Not Available Not Available Symbicort 160 mcg-4.5 mcg/actuati on HFA aerosol inhaler INL 2 PFS PO BID active Not Available Not Available No t Available D3-2000 2019 active Not Available Not Available Not Avai lable Xarelto 20 mg tablet 12/08 completed Not Available Not Available Not Available Vitamin D2 03/28 completed Not Available Not Available Not Available Eliquis 5 mg tablet active Not Available Not Available No t Available Vitals Date Recorded Body mass index (BMI) Body height Oxygen saturation Oxygen saturation in Arterial blood by Pulse oximetry Heart rate Body temperature Body weight Systolic blood pressure Diastolic blood pressure Provider Name and Address Organization Details Last Updated DateTime 2 27.1 kg/m2 162.56 cm 94 % 94 % 76 /min 97.7 [degF] 74643.5 9 g 138 mm[Hg] 86 mm[Hg] Not Available [facility] 3 08:21:34 Date Recorded Body mass index (BMI) Body height Oxygen saturation Oxygen saturation in Arterial blood by Pulse oximetry Heart rate Body temperature Body weight Systolic blood pressure Diastolic blood pressure Provider Name and Address Organization Details Last Updated DateTime 2 26.6 kg/m2 162.56 cm 96 % 96 % 61 /min 98 [degF] 81103.8 2 g 122 mm[Hg] 80 mm[Hg] Not Available [facility] 3 08:21:34 Date Recorded Body mass index (BMI) Body height Oxygen saturation Oxygen saturation in Arterial blood by Pulse oximetry Heart rate Body temperature Body weight Systolic blood pressure Diastolic blood pressure Provider Name and Address Organization Details Last Updated DateTime 1 26.6 kg/m2 162.56 cm 98 % 98 % 52 /min 96.8 [degF] 82831.8 2 g 150 mm[Hg] 80 mm[Hg] Not Available [facility] 3 08:21:34 Date Recorded Body weight Body mass index (BMI) Body height Body temperature Heart rate Oxygen saturation Oxygen saturation in Arterial blood by Pulse oximetry Systolic blood pressure Diastolic blood pressure Provider Name and Address Organization Details Last Updated DateTime 3 03947.3 7 g 27.6 kg/m2 162.56 cm 97.2 [degF] 78 /min 96 % 96 % 136 mm[Hg] 82 mm[Hg] Melisa baron, [facility] 3 11:46:22 Date Recorded Body height Body mass index (BMI) Body weight Body temperature Heart rate Oxygen saturation Oxygen saturation in Arterial blood by Pulse oximetry Systolic blood pressure Diastolic blood pressure Provider Name and Address Organization Details Last Updated DateTime 3 162.56 cm 26.8 kg/m2 16183.4 1 g 97.5 [degF] 96 /min 95 % 95 % 134 mm[Hg] 72 mm[Hg] Joelle Rangel MA [facility] 3 12:49:15 Social History Question Answer Notes LastModified by Organizat ion Details LastModified Time Tobacco Smoking Status Former Smoker Anisha crespo [facility] 01/31/2023 12:27:14 Do You Have An Advance Directive? Yes [id number] Information not available 04/28/2022 Do You Wear A Helmet When Biking? Yes [email or web address] Information not available 01/31/2023 Are You Blind Or Do You Have Difficulty Seeing? No [email or web address] Information not available 01/31/2023 What Is Your Level Of Caffeine Consumption? Occasional [id number] Information not available 04/28/2022 What Is Your Code Status? Other [email or web address] Information not available 01/31/2023 In The 14 Days Before Symptom Onset, Have You Had Close Contact With A Laboratory-confir med COVID-19 While That Case Was Ill? No [email or web address] Information not available 01/31/2023 In The 14 Days Before Symptom Onset, Have You Had Close Contact With A Person Who Is Under Investigation For COVID-19 While That Person Was Ill? No [email or web address] Information not available 01/31/2023 Are You Deaf Or Do You Have Serious Difficulty Hearing? No [email or web address] Information not available 01/31/2023 What Type Of Diet Are You Following? REGULAR [id number] Information not available 04/28/2022 Have There Been Any Changes To Your Family Or Social Situation? No [email or web address] Information no t available 01/31/2023 What Is The Fluoride Status Of Your Home? Unknown [email or web address] Information not available 01/31/2023 Where [facility] You Live? [facility] [email or web address] Information not available 01/31/2023 Do You Have A Medical Power Of Inspector Line? Yes [email or web address] Information not available 01/31/2023 What Was The Date Of Your Most Recent Tobacco Screening? 11/10/2020 [email or web address] Information not available 01/31/2023 Have You Ever Been Counseled For Unhealthy Alcohol Use? No [email or web address] Information not available 01/31/2023 Do You Have Any Pets? No [email or web address] Information not available 01/31/2023 Do You Use Your Seat Belt Or Car Seat Routinely? Yes [email or web address] Information not available 01/31/2023 Do You Have Smoke And Carbon Monoxide Detectors In Your Home? Yes [email or web address] Information not available 01/31/2023 Are You Passively Exposed To Smoke? No [email or web address] Information no t available 01/31/2023 Are There Any Smokers In Your House? No [email or web address] Information not available 01/31/2023 How Much Tobacco Do You Smoke? 0.5 PPD [id number] Information not available 04/28/2022 Has Tobacco Cessation Counseling Been Provided? No Information not available 01/31/2023 How Many Years Have You Smoked Tobacco? 17 [email or web address] Information not available 01/31/2023 Have You Recently Traveled Abroad? No [email or web address] Information not available 01/31/2023 Do You Have Difficulty Walking Or Climbing Stairs? No [email or web address] Information not available 01/31/2023 Are You Currently In School? No [email or web address] Information not available 01/31/2023 Do You Have Any Dietary Restrictions? No [email or web address] Information not available 01/31/2023 Sex: Unknown Functional Status Question Answer Note LastModified by Organizat ion Details LastModified Time Do you use any illicit or recreational drugs? No [email or web address] Information not available 01/31/2023 Do you or have you ever used any other forms of tobacco or nicotine? No [email or web address] Information not available 01/31/2023 What is your level of alcohol consumption? Occasional [id number] Information not available 04/28/2022 Do you have transportation difficulties? No [email or web address] Information not available 01/31/2023 Are you able to walk? YESWOREST [email or web address] Information not available 01/31/2023 Do you have difficulty doing errands alone? No [email or web address] Information not available 01/31/2023 Are you able to care for yourself? Yes [email or web address] Information n ot available 01/31/2023 Do you have difficulty dressing or bathing? No [email or web address] Information not available 01/31/2023 What is your exercise level? None [id number] Information not available 04/28/2022 Mental Status Question Answer Note LastModified by Organization D etails LastModified Time Do you have difficulty concentrating, remembering or making decisions? No [email or web address] Information no t available 01/31/2023 Family History Relationship Description Onset Age of this Age Resolved Age Notes LastModified by Organization Details LastModified Time Mother Congestive heart failure [id number].201 [id number] Not available 04/28/2022 08:19:10 Maternal Grandfather Malignant neoplasm of liver MIGRATION.999 [id number] Not available 04/28/2022 08:19:10 Brother Malignant neoplasm of liver [id number].750 [id number] Not available 04/28/2022 08:19:10 Brother Malignant melanoma MIGRATION.293 [id number] Not available 04/28/2022 08:19:10 Maternal Grandmother Congestive heart failure MIGRATION.267 [id number] Not available 04/28/2022 08:19:10 Medical History No medical history recorded. Gynecological HistoryNo gynecological history recorded. Obstetrics History GPAL:G 0 P 0 0 0 0 Past Encounters Encounter ID Performer Location Encounter Start Date Encounter Closed Date Diagnosis/Indication Diagnosis SNOMED-CT Code Diagnosis ICD10 Code Diagnosis Note [id number] Ruddy Hobson MD [facility] [place] [address] [place] [address] 08/20/2020 00:00:00 08/21/2020 06:15:59 [id number] Ruddy Hobson MD [facility] [address] [place] [address] 11/10/2020 00:00:00 11/10/2020 10:35:15 [id number] Ruddy Hobson MD [facility] [address] [place] [address] 04/30/2021 00:00:00 04/30/2021 19:40:05 [id number] Ruddy Hobson MD [facility] [place] [address] [place] [address] [place] [address] 06/08/2021 00:00:00 06/08/2021 21:43:39 [id number] Ruddy Hobson MD [facility] [place] [address] [place] [address] [place] [address] 12/08/2022 11:36:11 12/08/2022 12:21:27 Right upper quadrant pain 271528384 R10.11 Pain of mu ltiple joints 62459091 M25.50 Thyroid di sorder screening 179950511 Z13.29 Hyperlipid emia screening 059597559 Z13.220 Lateral ep icondylitis of right humerus 3448152792 24068 M77.11 Tennis elbow strap. [id number] Ruddy Hobson MD [facility] [place] [address] [place] [address] [place] [address] 01/31/2023 12:25:24 01/31/2023 13:12:05 Rib pain 085365318 R07.81 Chronic ab dominal pain 157073511 R10.9 insurance will not okay the CT of abdomen unless ordered with contrast . US of gallbladde r was normal; negative Novak's sign Health Concerns Section Related Observation LastModified by Organization Detai ls LastModified Time None Recorded Concern Status LastModified by Organization Details LastModified Time None Recorded Advance Directives Directive Y: Payers Encounter Date Sequence Insurance Name Policy Number Policy Hernandez Covered Member ID Hernandez Member ID Guarantor Name 12/08/2022 1 [employer] (MEDICARE REPLACEMENT /ADVANTAGE - PPO) [id number] 1 Janet L Ursprung [id number] Janet L Ursprung 01/31/2023 1 [employer] (MEDICARE REPLACEMENT /ADVANTAGE - PPO) [id number] 1 Janet L Ursprung [id number] Janet L Ursprung Notes Date Note Type Note Provider Name and Address Organization Details Recorded Time 12/08/2022 text/html Here today in 08/20 got a pacemaker her HR was down to 29 and never had CP or sob. Had light headedness. Feels a lot better.. Was on xarelto but had s/e and was put on eliquis. Doing better. Now has joint pain all the time. Has right elbow pain Has tingling of both hands. Not all the time.Also has pain on RUQ. After eating it is worse. At night legs hurt so bad and has to wake up at night to walk around. No fmhx of RA or lupus Ruddy Hobson MD [address], [place], [address], [facility] [employer] 12/09/2022 06:58:06 01/31/2023 text/html right rib lower rib pain, no trauma CHICO Blevins [address], [place], [address], [employer] [facility] [employer] 02/12/2023 10:27:16 OBGyn Episode No OBEpisode recorded.
--- OUTSIDE RECORDS SUMMARY | 2024-07-31 07:07 | XMS_ITS | Clinical Summary ---
Author Organization [facility] Administrative Offices Address [address] [place] [address] Care Team Providers Care Supervisor Newspaper Deliveries Name Role Phone Ruddy Hobson MD Primary Care Provider [phone] Allergies Active Allergy Reactions Criticality Noted Date Comments Azithromycin Diarrhea Low 03/26/2020 Codeine Nausea and Vomiting Low 09/10/2008 Hibiclens (Isopropyl Alcohol) Other (See Comments) Medium 04/21/2020 Erythema Penicillins Shortness of Breath/Wheezing High 09/10/2008 Medications cholecalciferol , vitamin D3, (VITAMIN D3 ORAL) Take by mouth 2 times daily. Active magnesium oxide 250 mg magnesium Tablet Take 250 mg by mouth. Active losartan (COZAAR) 100 mg tablet losartan 100 mg tablet 09/28/2019 Active Cranberry 500 mg Capsule Take by mouth. Active spironolactone (ALDACTONE) 25 mg tablet Take 25 mg by mouth daily. Active Active Problems Patient Care Coordination No te Formatting of this note migh t be different from the original. Primary Care: Ruddy Hobson MD Referring Provider: Ruddy Hobson MD No address on file Other: Dr Evelyn Wiseman MD Problem Noted Date Diagnosed Date Cough 05/08/2009 Breast cancer 09/20/2008 Overview (03/03/2012): 09/21/07 Stage I ([id number]) IDC RIGHT breast TRIPLE NEGATIVE Ki67 36% S/p lumpectomy and SLND s/p TC x 4 03/21/08 Radiation complete 12/17/11 Bone scan - had left rib lateral shadow. PET scan in 3 months negative Assessment & Plan (03/23/2013 2:27 PM PHARMACY TECHNICIAN INPATIENT): 5 1/2 year out 3 months of back pain - told PCP but no workup sergio Sept Pain right ribs again T spine between scapulas - feels like rib Same as last yaer Assessment & Plan (09/22/2012 11:06 AM CDT): 5 years out PET in [place] in Sept ROV 1 year Assessment & Plan (03/03/2012 2:19 PM PHARMACY TECHNICIAN INPATIENT): 4 1/2 years out PET today negative Had rib abnormality on bone scan. Will observe. SEnd to chiropractor for trigger point eval of lat dorsi ROV 6 months Assessment & Plan (11/05/2011 2:08 PM CDT): 4 years out Mammo today RUQ pain - thinks it's GB - get ultrasound Did CXR and C/T spine d/t shoulder pain - going to PT - frozen shoulder ROV 6 months Assessment & Plan (04/30/2011 2:38 PM PHARMACY TECHNICIAN INPATIENT): 3 1/2 years out Mammo in Nov Had colonoscopy tubular adenoma doing ok ROV 6 months Assessment & Plan (01/01/2011 3:15 PM CDT): 3 years out rov 6 months Depression - will try SAMe again 400 bid - refusing SSRI Upset over no insurance and told she wouldn't be seen Labs today.-wants CA 125 mammo today RIGHT lower quadrant pain - NEVER HAD SCOPE =- will get one at home ROV 3 months Assessment & Plan (05/01/2010 3:34 PM PHARMACY TECHNICIAN INPATIENT): SAMe gave her bad dreams Bone scan and CTs negative (RML infiltrate) Had sinus infection, b/l ear infection - levoquin x 1 week Will cut SAMe in half ROV 6 months Assessment & Plan (04/10/2010 2:48 PM PHARMACY TECHNICIAN INPATIENT): 2 1/2 yrs out Hurts in scapulas, rib cage - had CXR negative; feels bad bloodwork done for bruises on SSI, taking care of her Mom, brother has bone cancer Mammogram in September SAMe, folic, B12, EPA 1000mg PET to restage ROV after PET Assessment & Plan (10/03/2009 11:31 AM CDT): 2 yrs out PET negative this week Mammogram today neg 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 EGD 09/05 negative Mammo 09/05 and today EMPHYSEMA - needs PFTs (last ones pre dx) - send to [facility] Very happy with [facility] imaging techs ROV 3 months Assessment & Plan (12/20/2008 2:36 PM CDT): PET negative in August. Taking care of mom in [place] PLAN: BrCA - ROV 3 months Mammogram Check labs and marker Osteopenia. - BMD 09/05; taking Facial tremor - Emphysema - quit 2005 HAs - MRI brain to evaluate sinuses and to r/o mets Rib pain - check xray Assessment & Plan (09/20/2008 1:58 PM CDT): Janet and her friend come in for f/u. She is [address] in May showed 3mm RLL uncalcified nodule. She is worried and has had cough for 1 month. Also she thinks her facial tremor is worse. PLAN: Check PET/CT scan to reevaluate nodule Check labs. BMD 09/05 osteopenia femur. EGD 09/05 negative Mammo 09/05 facial Tremor 09/20/2008 Osteopenia 09/20/2008 Emphysema 09/20/2008 Resolved Problems Problem Noted Date Diagnosed Date Resolved Date Nipple discharge 10/18/2016 11/12/2016 Encounters Date Type Department Care Team Description 07/17/2024 External Device Data ST[facility] ABSTRACTION Provider, Abstract 06/12/2024 External Device Data [facility] ABSTRACTION Provider, Abstract from Last 3 Months Family History Medical History Relation Name Comments Liver Disease Brother Lung Cancer Brother Liver Disease Maternal Grandfather cancer Heart Disease Maternal Grandmother Heart Disease Mother chf Healthy Son Breast Cancer Neg Hx Celiac Disease Neg Hx Crohn's Disease Neg Hx Inflammatory Bowel Disease Neg Hx Ovarian Cancer Neg Hx Ulcerative Colitis Neg Hx Relation Name Status Comments Brother Maternal Grandfather Maternal Grandmother Mother Alive Son Alive Social History Tobacco Use Types Packs/Day Years Used Date Smoking Tobacco: Former Cigarettes 0.5 35 0 10/11/1970 - 10/11/2005 Smokeless Tobacco: Never Tobacco Cessation:Counseling Given: Not Answered Alcohol Use Standard Drinks/Week Comments Yes 0 (1 standard drink = 0.6 oz pur e alcohol) moderate Comments No Sex and Gender Information Value Date Recorded Sex Assigned at Not on file Legal Sex Female 3:53 AM PHARMACY TECHNICIAN INPATIENT Gender Identity Not on file Sexual Orientation Not on file Occupation Industry Job Start Date Job End Date Not on file Not on file Not on file Not on file Not on file Not on file Not on file Not on file Last Filed Vital Signs Vital Sign Reading Time Taken Comments Blood Pressure 126/84 02/11/2022 11:20 AM PHARMACY TECHNICIAN INPATIENT Pulse 67 02/11/2022 11:20 AM PHARMACY TECHNICIAN INPATIENT Temperature 37 C (98.6 F) 02/11/2022 11:20 AM PHARMACY TECHNICIAN INPATIENT Respiratory Rate 16 08/12/2020 9:26 AM CDT Oxygen Saturation 96% 02/11/2022 11:20 AM PHARMACY TECHNICIAN INPATIENT Inhaled Oxygen Concentration - - Weight 72.1 kg (159 lb) 02/11/2022 11:20 AM PHARMACY TECHNICIAN INPATIENT Height 162.6 cm (5' 4) 02/11/2022 11:20 AM PHARMACY TECHNICIAN INPATIENT Body Mass Index 27.29 02/11/2022 11:20 AM PHARMACY TECHNICIAN INPATIENT Plan of Treatment Health Maintenance Due Date Last Done Comments Pre-Diabetes and Diabetes Screening 1954 DTAP/TDAP/TD VACCINES (1 - Tdap) 1973 PNEUMOCOCCAL VACCINE 50+ YEA RS (1 of 2 - PCV) 1973 COLORECTAL SCREENING 11/23/1999 Colorectal Cancer Screening 11/23/1999 FIT-DNA Q 3 years 11/23/1999 FIT/FOBT Q 1 year 11/23/1999 Flex Sig/CT Colonography Q 5 years 11/23/1999 ZOSTER VACCINE (1 of 2) 2004 RSV VACCINE (60+ or ) (1 - Risk 60-74 years 1-dose series) 2014 OSTEOPOROSIS SCREENING 11/23/2019 INFLUENZA VACCINE (#1) 2023 COVID-19 Vaccine (3 - 2023-2 5 season) 2023 05/17/2020, 04/26/2020 BREAST CANCER SCREENING 04/21/2024 04/21/19, 04/21/2023, 02/11/2022, Additional history exists Medical Devices Implanted Type Area Billboard Erector Helper Device Identifier Shelf Expiration Date Model / Serial / Lot Hemostatic Surgicel 2x3in 1952 - [facility] [place] [id number] Implanted:Qty : 1 on 10/28/2016 by Rosmery Cardoso MD at [facility] Hemostatic Right: Breast [employer] 06/27/20171952 / / [id number] Hemostatic Surgicel 2x3in 1953 - [id number] Implanted:Qty : 1 on 05/02/2020 by Evelyn Wiseman MD at [facility] Hemostatic Right: Breast [employer] [id number] 04/28/20231952 / / [id number] Procedures Procedure Name Priority Date/Time Associated Diagnosis Comments MAMMO 3D WALDO DIAGNOSTIC BILAT W OR WO CAD Routine 02/11/2022 10:32 AM PHARMACY TECHNICIAN INPATIENT History of breast cancer from Last 3 Months or Most Recently Relevant to Health Maintenance Results * MAMMO DIAG BILAT 3D WALDO W OR WO CAD (02/11/2022 10:32 AM PHARMACY TECHNICIAN INPATIENT) Anatomical Region Laterality Modality Breast Bilateral Mammography 02/11/2022 10:3 2 AM PHARMACY TECHNICIAN INPATIENT Impressions 02/11/2022 12:11 PM PHARMACY TECHNICIAN INPATIENT IMPRESSION: No suspicious findings to suggest malignancy in either breast. Annual mammography is recommended. OVERALL FINAL ASSESSMENT: BI-RADS CATEGORY 2 - Benign findings. Narrative 02/11/2022 12:11 PM PHARMACY TECHNICIAN INPATIENT EXAM: BILATERAL DIAGNOSTIC DIGITAL MAMMOGRAM WITH 3D TOMOSYNTHESIS AND CAD DATE: 02/11/2022 10:32 AM HISTORY: Personal history of breast cancer with prior right breast conservation therapy. DICTATION LOCATION: [facility] TECHNIQUE: Mediolateral oblique, mediolateral and craniocaudal views of both breasts were performed using full-field digital mammography. Low-dose digital breast tomosynthesis examination was performed with 2D and 3D acquisitions. Examination is read in conjunction with computer aided detection. COMPARISON: 02/10/2021 and older. BREAST COMPOSITION: Scattered fibroglandular densities FINDINGS: Mammographic changes consistent with breast conservation therapy are seen on the right. No concerning mass, suspicious microcalcifications, or concerning areas of architectural distortion are identified in either breast. Computer aided detection was utilized. Procedure Note Maria C Walker MD - 02/11/2022 EXAM: BILATERAL DIAGNOSTIC DIGITAL MAMMOGRAM WITH 3D TOMOSYNTHESIS AND CAD DATE: 02/11/2022 10:32 AM HISTORY: Personal history of breast cancer with prior right breast conservation therapy. DICTATION LOCATION: [facility] TECHNIQUE: Mediolateral oblique, mediolateral and craniocaudal views of both breasts were performed using full-field digital mammography. Low-dose digital breast tomosynthesis examination was performed with 2D and 3D acquisitions. Examination is read in conjunction with computer aided detection. COMPARISON: 02/10/2021 and older. BREAST COMPOSITION: Scattered fibroglandular densities FINDINGS: Mammographic changes consistent with breast conservation therapy are seen on the right. No concerning mass, suspicious microcalcifications, or concerning areas of architectural distortion are identified in either breast. Computer aided detection was utilized. IMPRESSION: No suspicious findings to suggest malignancy in either breast. Annual mammography is recommended. OVERALL FINAL ASSESSMENT: BI-RADS CATEGORY 2 - Benign findings. Kuldeep James MD MAMMO ORDERABLES Final Result from Last 3 Months or Most Recently Relevant to Health Maintenance [place] [id number] Advance Directives For more information, please contact: [phone] * Full Code (Latest Code Status on File) Date Activated Date Inactivated Comments 05/02/2020 8:10 AM 05/02/2020 11:38 AM Care Teams Supervisor Newspaper Deliveries Relationship Specialty Start Date End Date Ruddy Hobson MD PCP - General Family Practice 02/09/19
--- OUTSIDE RECORDS SUMMARY | 2024-07-31 07:07 | XMS_ITS ---
Author Organization [facility] Administrative Offices Address [address] [place] [address] Care Team Providers Care Metal Pattern Maker Name Role Phone Ruddy Hobson MD Primary Care Provider [phone] Active Problems Patient Care Coordination No te Formatting of this note migh t be different from the original. Primary Care: Ruddy Hobson MD Referring Provider: Ruddy Hobson MD No address on file Other: Dr Evelyn Wiseman MD Problem Noted Date Diagnosed Date Cough 05/08/2009 Breast cancer 09/20/2008 Overview (03/03/2012): 09/21/07 Stage I ([id number]) IDC RIGHT breast TRIPLE NEGATIVE Ki67 36% S/p lumpectomy and SLND s/p TC x 4 03/21/08 Radiation complete 12/17/11 Bone scan - had left rib lateral shadow. PET scan in 3 months negative Assessment & Plan (03/23/2013 2:27 PM BULK PLANT AGENT): 5 1/2 year out 3 months of back pain - told PCP but no workup sergio Sept Pain right ribs again T spine between scapulas - feels like rib Same as last yaer Assessment & Plan (09/22/2012 11:06 AM CDT): 5 years out PET in Feb sergio in Oct ROV 1 year Assessment & Plan (03/03/2012 2:19 PM BULK PLANT AGENT): 4 1/2 years out PET today negative [...] months Assessment & Plan (04/30/2011 2:38 PM BULK PLANT AGENT): 3 1/2 years out Mammo in Nov [...] months Assessment & Plan (05/01/2010 3:34 PM BULK PLANT AGENT): SAMe gave her bad dreams Bone scan and CTs negative (RML infiltrate) Had sinus infection, b/l ear infection - levoquin x 1 week Will cut SAMe in half ROV 6 months Assessment & Plan (04/10/2010 2:48 PM BULK PLANT AGENT): 2 1/2 yrs out Hurts in scapulas, [...] ECHO stress test June 27 [place]ammogram in [place] BMD in August 2008 EGD August 2008 Saw pulmEsther Temple finished with trt DAYAN ROV 3 months with PET/CT and labs Rec Vit D 1999 Assessment & Plan (03/21/2009 2:54 PM BULK PLANT AGENT): 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 EGD 09/05 negative Mammo 09/05 and today EMPHYSEMA - needs PFTs (last ones pre dx) - send to [facility] Very happy with [facility] imaging techs ROV 3 months Assessment & Plan (12/20/2008 2:36 PM CDT): PET negative in August. Taking care of mom in [place] PLAN: BrCA - ROV 3 months Mammogram [...] facial Tremor 09/20/2008 Osteopenia 09/20/2008 Emphysema 09/20/2008 Current Treatment and Therapy Plans No current plan information found. Past Treatment and Therapy Plans No past plan information found. Lifetime Dose Tracking * Chemical Lifetime Dose Automatic Entry Manual Entr y Effective Dose 12.2 mSv 12.2 mSv 0 mSv Total DLP 476 DLP 476 DLP 0 DLP CTDIvol Max 14.9 mGy 14.9 mGy 0 mGy CTDIvol Min 14.9 mGy 14.9 mGy 0 mGy Resolved Problems Problem Noted Date Diagnosed Date Resolved Date Nipple discharge 10/18/2016 11/12/2016
--- OUTSIDE RECORDS SUMMARY | 2024-07-31 07:07 | XMS_ITS | Encounter Summary ---
Author Organization [facility] Address [address] [place] [address] Care Team Providers Care Paper Pattern Inspector Name Role Phone Ruddy Hobson MD Primary Care Provider [phone] Encounter Details Date Type Department Care Team (Late st Contact Info) Description 07/14/1998 Outpatient [facility] Primary Care - [address] [place] [address] Bernard Ferguson, DO * Social History Tobacco Use Types Packs/Day Years Used Date Smoking Tobacco: Never Assessed Comments Unknown Sex and Gender Information Value Date Recorded Sex Assigned at Not on file Legal Sex Female 3:53 AM LOBSTERMAN Gender Identity Not on file Sexual Orientation Not on file documented as of this encounter Plan of Treatment Not on file documented as of this encounter Visit Diagnoses Not on filedocumented in this encounter Care Teams Paper Pattern Inspector Relationship Specialty Start Date End Date Ruddy Hobson MD PCP - General Family Practice 02/09/19 documented as of this encounter
--- OUTSIDE RECORDS SUMMARY | 2024-07-31 07:07 | XMS_ITS | Encounter Summary ---
Author Organization [facility] Address [address] [place] [address] Care Team Providers Care Treasurer Name Role Phone Ruddy Hobson MD Primary Care Provider [phone] Encounter Details Date Type Department Care Team (Late st Contact Info) Description 06/09/1998 Outpatient [facility] Primary Care - [address] [place] [address] Bernard Freguson, DO * Social History Tobacco Use Types Packs/Day Years Used Date Smoking Tobacco: Never Assessed Comments Unknown Sex and Gender Information Value Date Recorded Sex Assigned at Not on file Legal Sex Female 3:53 AM ORTHOPEDIC PHYSICIAN Gender Identity Not on file Sexual Orientation Not on file documented as of this encounter Plan of Treatment Not on file documented as of this encounter Visit Diagnoses Not on filedocumented in this encounter Care Teams Treasurer Relationship Specialty Start Date End Date Ruddy Hobson MD PCP - General Family Practice 02/09/19 documented as of this encounter
--- OUTSIDE RECORDS SUMMARY | 2024-07-31 07:07 | XMS_ITS | Clinical Summary ---
Author Organization [facility] Address [address] [place] [address] Care Team Providers Care Line Construction Superintendent Name Role Phone Erika Marinelli Primary Care Provider [phone] [facility],non-owned Affiliates and Associated Physician Practices is amultiple site organization consisting of ambulatory clinics and hospital sitesin [place], [place] and [place]. This disclosure is being madepursuant to the Care Everywhere program and may not contain all information available regarding this patient. Last updated 17.[facility] Allergies Active Allergy Reactions Criticality Noted Date Comments Azithromycin Diarrhea Low 03/26/2020 Chloraprep One Step Unknown Medium 04/21/2020 Erythema Codeine Urticaria,Nausea and/or Vomiting,Rash Medium 09/10/2008 Penicillins Diarrhea,Nausea and/ or Vomiting,Shortness of Breath,Unknown High 09/10/2008 Rivaroxaban Psychiatric Medium 03/01/2023 Menopausal symptoms, excessive sweating Medications * Be aware that medications may not be up to date on this document. Alwaysverify current medications with the patient. Eliquis 5 MG tablet 1 (one) tablet 2 times daily Active vitamin D3 (Cholecalciferol ) 25 MCG (1000 UNITS) tablet Take by mouth 2 times daily Active magnesium oxide 250 MG tablet Take 1 (one) tablet by mouth once daily Active losartan (Cozaar) 100 MG tablet Take 1 (one) tablet by mouth once daily 03/26/2024 Active furosemide (Lasix) 20 MG tablet Take 1 (one) tablet by mouth once daily as needed 12/15/2023 Active spironolactone (Aldactone) 25 MG tablet Take 1 (one) tablet by mouth once daily 05/31/2023 Active aspirin (Aspirin) 81 MG chew tablet Take 1 (one) tablet by mouth once daily Active Active Problems Problem Noted Date Diagnosed Date Primary hypertension 05/03/2023 Chronic anticoagulation 03/01/2023 Sinus node dysfunction 03/01/2023 Rib pain 01/30/2023 Chronic abdominal pain 12/21/2022 Lateral epicondylitis of right elbow 12/08/2022 Mixed hyperlipidemia 12/08/2022 Multiple joint pain 12/08/2022 Right upper quadrant pain 12/08/2022 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 failure 08/2022 Paroxysmal atrial fibrillation 09/03/2022 Peripheral vascular disease 09/03/2022 Other thrombophilia 09/01/2022 Cardiac pacemaker in situ 08/17/2022 Overview (04/24/2024): Conturronik Edora Dual Pacemaker. Dx; Symptomatic Bradycardia, CHB. DOI 08/11/2022-Uppstrom. Conturronik remote monitoring. 08/30/2022-New Onset Afib. JR Chronic cough 01/08/2022 EVAN (obstructive sleep apnea) 01/08/2022 COVID-19 02/24/2020 Anxiety 03/14/2018 Malignant neoplasm of breast 09/20/2008 Overview (04/24/2024): 09/21/07 Stage I ([id number]) IDC RIGHT breast TRIPLE NEGATIVE Ki67 36% [...] rib Same as last yaer Osteopenia 09/20/2008 Pulmonary emphysema 09/20/2008 Tremor 09/20/2008 Resolved Problems Problem Noted Date Diagnosed Date Resolved Date Cough 05/08/2009 05/22/2024 Social History Tobacco Use Types Packs/Day Years Used Date Smoking Tobacco: Never Smokeless Tobacco: Never Alcohol Use Standard Drinks/Week Comments Yes 0 (1 standard drink = 0.6 oz pur e alcohol) social Comments No Sex and Gender Information Value Date Recorded Sex Assigned at Not on file Legal Sex Female 9:38 AM HOG WORKER Gender Identity Not on file Sexual Orientation Not on file Last Filed Vital Signs Vital Sign Reading Time Taken Comments Blood Pressure 140/73 04/24/2024 9:57 AM HOG WORKER Pulse 69 04/24/2024 9:57 AM HOG WORKER Temperature 36.3 C (97.3 F) 04/24/2024 9:57 AM HOG WORKER Respiratory Rate - - Oxygen Saturation - - Inhaled Oxygen Concentration - - Weight 68.4 kg (150 lb 12.8 oz) 04/24/2024 9:57 AM HOG WORKER Height 162.6 cm (5' 4) 04/24/2024 9:57 AM HOG WORKER Body Mass Index 25.88 04/24/2024 9:57 AM HOG WORKER Plan of Treatment Upcoming Encounters Date Type Department Care Team (Late st Contact Info) Description 04/25/2025 9:30 AM HOG WORKER Appointment [facility] [address] [place] [id number] 04/25/2025 10:00 AM HOG WORKER Office Visit [facility] - Surgery [address] [place] [address], [address] [place] [address] Rosmery Cardoso MD [address] [place] [address] [address] [address] Health Maintenance Due Date Last Done Comments BONE DENSITY TESTING 1955 COLON MONITORING 1955 COLONOSCOPY - COLON CA SCREENING 1955 CT COLONOGRAPHY - COLON CA SCREENING 1955 FIT - COLON CA SCREENING 1955 FLEX SIG - COLON CA SCREENING 1955 LIPID TESTING 1955 HEPATITIS C SCREENING 11/17/1972 DTAP/TDAP/TD VACCINES (1 - Tdap) 1973 PNEUMOCOCCAL VACCINE 50+ (1 of 2 - PCV) 1973 ZOSTER VACCINE (1 of 2) 2004 Respiratory Syncytial Virus (RSV) Vaccine Pt: or over 60 yrs (1 - Risk 60-74 years 1-dose series) 2014 SCREENING FOR DIABETES 04/21/2023 COVID-19 VACCINE ( season) 2023 05/17/2020, 04/26/2020 DEPRESSION SCREENING 02/29/2024 MEDICARE AWV CALENDAR YEAR 2024 COLOGUARD (AGES 45-75) - COLON CA SCREENING 06/02/2024 06/02/2021 Colorectal Cancer Screening 06/02/2024 INFLUENZA VACCINE (Season Ended) 2024 MAMMOGRAM 04/24/2026 04/24/2024, 04/01, 02/11/2022, Additional history exists HEPATITIS B VACCINE Aged Out No longe r eligible based on patient's age to complete this topic HIB VACCINE Aged Out No longer eligi ble based on patient's age to complete this topic HPV VACCINE Aged Out No longer eligi ble based on patient's age to complete this topic MENINGOCOCCAL (Group B) VACCINE SHARED DECISION-MAKING Aged Out No longer eligible based on patient's age to complete this topic MENINGOCOCCAL GROUPS A/C/Y/W VACCINE Aged Out No longer eligible based on patient's age to complete this topic Procedures Procedure Name Priority Date/Time Associated Diagnosis Comments MAMMO BILAT SCREENING W SHAQUILLE Routine 04/24/2024 9:15 AM HOG WORKER Encounter for screening mammogram for malignant neoplasm of breast from Last 3 Months or Most Recently Relevant to Health Maintenance Results * Mammo Bilat Screening W Shaquille (04/24/2024 9:15 AM HOG WORKER) Anatomical Region Laterality Modality Breast Bilateral Mammography 04/24/2024 11:1 4 AM HOG WORKER Impressions 04/24/2024 11:17 AM HOG WORKER IMPRESSION: No mammographic evidence of malignancy in either breast. ASSESSMENT: BIRADS Category 2: Benign finding(s). RECOMMENDATION: Bilateral screening mammogram in one year. Thank you for allowing us to participate in the care of your patient. [facility] utilizes NeoSt[employer] as a reminder system to notify patients of their next recommended mammogram. > Interpreting Provider: lGoria Ann MD on 04/24/2024 11:17 AM Narrative 04/24/2024 11:17 AM HOG WORKER EXAMINATION: Digital screening mammogram. Low-dose full-field digital breast tomosynthesis examination was performed with synthetic 2D images. Computer assisted detection was utilized. DATE: 04/24/2024 9:15 AM PRIOR: 04/21/2023 and prior mammograms dating back to 2019. BREAST PARENCHYMAL DENSITY: There are scattered areas of fibroglandular density. FINDINGS: No suspicious masses, areas of architectural distortion or microcalcifications are evident on synthetic 2D mammogram or tomosynthesis images. There has been no significant interval change since the prior examination. Right breast posttreatment changes. Left chest wall battery pack. us Rosmery Cardoso MD MAMMO ORDERABLES Final Result from Last 3 Months or Most Recently Relevant to Health Maintenance Insurance [employer] MEDICARE ADV Care Teams Line Construction Superintendent Relationship Specialty Start Date End Date Erika Marinelli [address] [id number] PCP - General 04/24/24
--- OUTSIDE RECORDS SUMMARY | 2024-07-31 07:08 | XMS_ITS | Encounter Summary ---
Author Organization [facility] Address 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
--- OUTSIDE RECORDS SUMMARY | 2024-07-31 07:08 | XMS_ITS | Encounter Summary ---
Author Organization [facility] Address 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
--- OUTSIDE RECORDS SUMMARY | 2024-07-31 07:08 | XMS_ITS | Encounter Summary ---
Author Organization [facility] Address [address] [place] [address] Care Team Providers Care Mainspring Former Brace End Name Role Phone Ruddy Hobson MD Primary Care Provider [phone] Encounter Details Date Type Department Care Team (Late st Contact Info) Description 09/27/2008 Outpatient Historical [facility] Edna Lamb MD [address] [place] [address] [place] [address] Malignant Neoplasm of Breast (Female), Unspecified Site (CMS/HCC) Social History Tobacco Use Types Packs/Day Years Used Date Smoking Tobacco: Former Cigarettes Q uit: 10/11/2005 Alcohol Use Standard Drinks/Week Comments Yes 0 (1 standard drink = 0.6 oz pur e alcohol) moderate Comments No Sex and Gender Information Value Date Recorded Sex Assigned at Not on file 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 Gender Identity Not on file Sexual Orientation Not on file documented as of this encounter Plan of Treatment Not on file documented as of this encounter Procedures Procedure Name Priority Date/Time Associated Diagnosis Comments PET TUMOR OR INFECTION IMG W CT SKB MDTH Timed Study 09/27/2008 9:48 AM CDT documented in this encounter Results * PET TUMOR IMG W CT SKL BSE MID THG (09/27/2008 9:48 AM CDT) Anatomical Region Laterality Modality Other 09/27/2008 9:48 AM CDT Narrative 09/27/2008 11:23 AM CDT [facility] [address] [place], [place] [address] Admit Date: 09/27/2008 JANET MCKINNON Sex: F Admit Prov: EDNA LAMB Date: 1955 Primary Care Prov: CMRN: [id number] Room: [facility] SSN: [id number] IMAGING SERVICES Ordering Prov: N/A Accession Number: [id number] Interpretation WHOLE BODY PET/CT HISTORY: 52 year old female diagnosed with right-sided breast carcinoma in August 2007. She was treated with a lumpectomy at that time. Last cycle of chemotherapy was in November 2007. Last cycle of radiation therapy to the right axilla was in February 2008. A new PET-CT study is needed for re- staging. PROCEDURE: Approximately 60 minutes after injection with 10.72 mCi of F-18 labeled FDG, CT imaging was acquired from the level of the orbits to the most proximal thighs. Subsequently, positron emission imaging was acquired over the same territory. The patient's blood glucose level at the time of tracer injection was 105 mg/dl. FINDINGS: Correlation is made with bone scan dated 06/19/2008, and the CT study dated 06/19/2008. Tracer activity in the mayorga matter, basal ganglia, thalamus and cerebellum is unremarkable. At the level of the head and neck, there is an unremarkable pattern of tracer activity. FDG uptake in the adenoids, tonsils and vocal cords is physiologic in nature. The supraclavicular fossa are free of significant adenopathy. The patient is status post left hemithyroidectomy. At the level of the chest, there is slightly increased tracer activity in the right breast parenchyma. Likely represents postsurgical inflammation, which be closely followed on future imaging and clinical exams. The patient is status post right axillary dissection. No significant right or left axillary adenopathy is identified. The left breast demonstrates unremarkable FDG activity. There is normal tracer activity within the mediastinum. No significant adenopathy is present. The esophagus is unremarkable. There is normal FDG activity throughout the lung parenchyma bilaterally. No nodules or masses are identified. Specifically, the 3 mm right lower lobe nodule described on prior imaging is not identified on the current study. The 1.6 cm pleural plaque seen on CT imaging is FDG negative. At the level of the abdomen, uptake within the liver, spleen, stomach, adrenals and bowel is normal. No significant adenopathy is present in the mesenteric, portacaval, perihepatic or retroperitoneal territories. Normal tracer excretion via the kidneys is seen and the ureters are unremarkable. At the level of the pelvis, there is normal tracer distribution to the iliac, obturator, inguinal and femoral lymph node territories bilaterally. Rectosigmoid activity is unremarkable. FDG uptake in the uterus and ovaries is within expected physiologic limits. Webb images are available on the hospital PACS system for review. IMPRESSION: 1. Mild activity in the right breast parenchyma; finding is likely physiologic, but should be closely followed on future imaging and clinical exams. 2. FDG negative right pleural plaque. 3. 3 mm right lower lobe nodule described on prior imaging is not identified on the current study. . Dictated by: ROBIN SCHULZ 09/27/2008 10:54 Electronically signed by: ROBIN SCHULZ 09/27/2008 11:22 Procedure Note Robin Schulz, DO - 09/27/2008 [facility] [address] [place], [place] [address] Admit Date: 09/27/2008 JANET MCKINNON Sex: F Admit Prov: EDNA LAMB Date: 1955 Primary Care Prov: CMRN: [id number] Room: [facility] SSN: [id number] IMAGING SERVICES Ordering Prov: N/A Interpretation WHOLE BODY PET/CT HISTORY: 52 year old female diagnosed with right-sided breast carcinoma inJ2007. She was treated with a lumpectomy at that time. Last cycle of chemotherapy was in November 2007. Last cycle of radiation therapy tothe right axilla was in February 2008. A new PET-CT study is needed forre- staging. PROCEDURE: Approximately 60 minutes after injection with 10.72 mCi of F-18labeled FDG, CT imaging was acquired from the level of the orbits to themost proximal thighs. Subsequently, positron emission imaging was acquiredover the same territory. The patient's blood glucose level at the time oftracer injection was 105 mg/dl. FINDINGS: Correlation is made with bone scan dated 06/19/2008, and the CT studydated 06/19/2008. Tracer activity in the mayorga matter, basal ganglia,thalamus and cerebellum is unremarkable. At the level of the head and neck, thereis an unremarkable pattern of tracer activity. FDG uptake in theadenoids, tonsils and vocal cords is physiologic in nature. The supraclavicularfossa are free of significant adenopathy. The patient is status post left hemithyroidectomy. At the level of the chest, there is slightly increased traceractivity in the right breast parenchyma. Likely represents postsurgicalinflammation, which be closely followed on future imaging and clinical exams. Thepatient is status post right axillary dissection. No significant right orleft axillary adenopathy is identified. The left breast demonstrates unremarkable FDG activity. There is normal tracer activity withinthe mediastinum. No significant adenopathy is present. The esophagus is unremarkable. There is normal FDG activity throughout the lungparenchyma bilaterally. No nodules or masses are identified. Specifically, the 3mm right lower lobe nodule described on prior imaging is not identifiedon the current study. The 1.6 cm pleural plaque seen on CT imaging is FDG negative. At the level of the abdomen, uptake within the liver, spleen,stomach, adrenals and bowel is normal. No significant adenopathy is present inthe mesenteric, portacaval, perihepatic or retroperitoneal territories.Normal tracer excretion via the kidneys is seen and the ureters areunremarkable. At the level of the pelvis, there is normal tracer distribution tothe iliac, obturator, inguinal and femoral lymph node territoriesbilaterally. Rectosigmoid activity is unremarkable. FDG uptake in the uterus andovaries is within expected physiologic limits. Webb images are available on the hospital PACS system for review. IMPRESSION: 1. Mild activity in the right breast parenchyma; finding is likely physiologic, but should be closely followed on future imaging andclinical exams. 2. FDG negative right pleural plaque. 3. 3 mm right lower lobe nodule described on prior imaging is not identified on the current study. . Dictated by: ROBIN SCHULZ 09/27/2008 10:54 Electronically signed by: ROBIN SCHULZ 09/27/2008 11:22 Edna Lamb MD PE ORDERABLES Final Resul t documented in this encounter Visit Diagnoses Diagnosis Malignant neoplasm of breast (female), unspecified site documented in this encounter Care Teams Mainspring Former Brace End Relationship Specialty Start Date End Date Ruddy Hobson MD PCP - General Family Practice 02/09/19 documented as of this encounter
--- OUTSIDE RECORDS SUMMARY | 2024-07-31 07:08 | XMS_ITS | Encounter Summary ---
Author Organization [facility] Address 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
--- OUTSIDE RECORDS SUMMARY | 2024-07-31 07:08 | XMS_ITS | Encounter Summary ---
Author Organization [facility] Address 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
--- OUTSIDE RECORDS SUMMARY | 2024-07-31 07:08 | XMS_ITS | Encounter Summary ---
Author Organization [facility] Address [address] [place] [address] Care Team Providers Care Fur Blower Name Role Phone Ruddy Hobson MD Primary Care Provider Encounter Details Date Type Department Care Team (Late st Contact Info) Description 06/19/2008 Outpatient Historical [facility] Edna Lamb MD [address] [place] [address] [place] [address] Malignant Neoplasm of Breast (Female), Unspecified Site (CMS/HCC) Social History Tobacco Use Types Packs/Day Years Used Date Smoking Tobacco: Never Assessed Comments Unknown Sex and Gender Information Value Date Recorded Sex Assigned at Not on file 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 [place], [place] [address] Admit Date: 06/19/2008 JANET MCKINNON Sex: F Admit Prov: EDNA LAMB Date: 1955 Primary Care Prov: CMRN: [id number] [id number] Ordering Prov: N/A Accession Number: [id number] Interpretation BONE SCAN, WHOLE BODY 06/19/2008 History: 52 year-old with history of CA of the right breast. Last chemotherapy December 2007. Right shoulder soreness. Imaging: Mild uptake is noted at the coracoid processes bilaterally at or about the glenoid. The remainder of the bone scan appears essentially normal. Kidneys are normal. IMPRESSION: 1. No evidence of metastatic disease to the skeleton. 2. Mild periarticular changes in the shoulders consistent with degenerative arthritis and appear appropriate to the age of the patient. Dose: 22 mCi Tc 99m MDP . Report revised on 06/19/2008 2:49:55 PM by SABRINA HALEY Dictated by: SABRINA HALEY 06/19/2008 11:56 Electronically signed by: SABRINA HALEY 06/19/2008 14:49 Transcribed: 06/19/2008 14:26 AMK Procedure Note Sabrina Haley MD - 06/20/2008 [facility] [address] [place], [place] [address] Admit Date: 06/19/2008 JANET MCKINNON Sex: F Admit Prov: EDNA LAMB Date: 1955 Primary Care Prov: CMRN: [id number] [id number] [facility] Ordering Prov: N/A Interpretation BONE SCAN, WHOLE BODY 06/19/2008 History: 52 year-old with history of CA of the right breast. Last chemotherapy December 2007. Right shoulder soreness. Imaging: Mild uptake is noted at the coracoid processes bilaterallyat or about the glenoid. The remainder of the bone scan appearsessentially normal. Kidneys are normal. IMPRESSION: 1. No evidence of metastatic disease to the skeleton. 2. Mild periarticular changes in the shoulders consistent withdegenerative arthritis and appear appropriate to the age of the patient. Dose: 22 mCi Tc 99m MDP . Report revised on 06/19/2008 2:49:55 PM by SABRINA HALEY Dictated by: SABRINA HALEY 06/19/2008 11:56 Electronically signed by: SABRINA HALEY 06/19/2008 14:49 Transcribed: 06/19/2008 14:26 AMK Edna Lamb MD NM ORDERABLES Edited documented in this encounter Visit Diagnoses Diagnosis Malignant neoplasm of breast (female), unspecified site documented in this encounter Care Teams Fur Blower Relationship Specialty Start Date End Date Ruddy Hobson MD PCP - General Family Practice 02/09/19 documented as of this encounter
--- OUTSIDE RECORDS SUMMARY | 2024-07-31 07:08 | XMS_ITS | Encounter Summary ---
Author Organization [facility] Address [address] [place] [address] Care Team Providers Care Flight Readiness Technician Name Role Phone Ruddy Hobson MD Primary Care Provider [phone] Encounter Details Date Type Department Care Team (Late st Contact Info) Description 09/20/2008 Outpatient Historical [facility] [address] Edna Hanson MD [address] [place] [address] [place] [address] Malignant Neoplasm of Breast (Female), Unspecified Site (CMS/HCC) Social History Tobacco Use Types Packs/Day Years Used Date Smoking Tobacco: Former Cigarettes Q uit: 10/11/2005 Alcohol Use Standard Drinks/Week Comments Yes 0 (1 standard drink = 0.6 oz pur e alcohol) moderate Comments No Sex and Gender Information Value Date Recorded Sex Assigned at Not on file 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
--- OUTSIDE RECORDS SUMMARY | 2024-07-31 07:08 | XMS_ITS | Encounter Summary ---
Author Organization [facility] Address 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
--- OUTSIDE RECORDS SUMMARY | 2024-07-31 07:08 | XMS_ITS | Encounter Summary ---
Author Organization [facility] Address 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
--- OUTSIDE RECORDS SUMMARY | 2024-07-31 07:09 | XMS_ITS | Encounter Summary ---
Author Organization [facility] Address 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
--- OUTSIDE RECORDS SUMMARY | 2024-07-31 07:09 | XMS_ITS | Encounter Summary ---
Author Organization [facility] Address [address] [place] [address] Care Team Providers Care Sales Contract Administrator Name Role Phone Ruddy Hobson MD Primary Care Provider [phone] Encounter Details Date Type Department Care Team (Late st Contact Info) Description 06/19/2008 Outpatient Historical [facility] Edna Lamb MD [address] [place] [address] [place] [address] Malignant Neoplasm of Breast (Female), Unspecified Site (CMS/HCC) Social History Tobacco Use Types Packs/Day Years Used Date Smoking Tobacco: Never Assessed Comments Unknown Sex and Gender Information Value Date Recorded Sex Assigned at Not on file 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 [place], [place] [address] Admit Date: 06/19/2008 JANET MCKINNON Sex: F Admit Prov: EDNA LAMB Date: 1955 Primary Care Prov: CMRN: [id number] Room: [facility] SSN: [id number] IMAGING SERVICES Ordering Prov: N/A Accession Number: [id number] Addendum Outside chest x-ray from [facility] dated 09/26/2007 was submitted for comparison. The areaof focal pleural thickening within the right upper hemithorax is not well demonstrated on the chest x-ray. The 3 mm pulmonary nodule within the right lower lobe seen on the recent chest CT is not demonstrated by plain radiographs. Followup of these abnormalities by CT is recommended. Dictated by: KEVIN KAY Electronically signed by: KEVIN KAY 07/09/2008 15:41 Transcribed: 07/09/2008 15:[address] CHEST, ABDOMEN AND PELVIS WITH IV CONTRAST 06/19/2008 History: 52-year-old woman with history of breast cancer Technique: Helical scanning of the chest, abdomen and pelvis was performed with oral and intravenous contrast Comparisons: None Findings: Chest CT: Biapical pleural - parenchymal opacity is seen most likely related to scarring. There is no focal consolidation or pleural effusion. There is minimal nonspecific pleural based nodularity within the right upper hemithorax laterally (image 12-14, series IIa). This measures approximately 16 mm in greatest dimension. There is a 3 mm noncalcified pulmonary nodule within the right lower lobe (image 43) which is nonspecific. No pulmonary nodules are identified. There are postsurgical changes within the low neck from left thyroidectomy. No pathologically enlarged mediastinal or hilar lymph nodes are seen. There are surgical clips in the right axilla. No axillary lymphadenopathy is seen. Heart size is within normal limits. There is no pericardial effusion. IMPRESSION: 1. Nonspecific focal pleural thickening right upper hemithorax laterally as described above. 2. 3 mm noncalcified right lower lobe pulmonary nodule. 3. Followup is recommended for these nonspecific findings. Abdomen/pelvis CT: The liver is unremarkable in appearance without intrahepatic biliary ductal dilatation. The gallbladder is present. The spleen, pancreas, and adrenal glands are unremarkable. Both kidneys enhance symmetrically and there is no hydronephrosis. No pathologically enlarged upper abdominal or retroperitoneal lymph nodes are seen. There is atherosclerosis of the aorta. The uterus is present. There is no pelvic lymphadenopathy. There is no free air or fluid. There is bilateral spondylolysis at L5. IMPRESSION: 1. No acute intra-abdominal/pelvic process identified. . Report revised on 07/09/2008 3:41:43 PM by KEVIN KAY Dictated by: KEVIN KAY 06/19/2008 09:59 Electronically signed by: KEVIN KAY 06/19/2008 15:06 Transcribed: 06/19/2008 11:56 AMK Procedure Note Kevin Kay - 07/09/2008 [facility] [address] [place], [place] [address] Admit Date: 06/19/2008 JANET MCKINNON Sex: F Admit Prov: EDNA LAMB Date: 1955 Primary Care Prov: CMRN: [id number] Room: [facility] SSN: [id number] IMAGING SERVICES Ordering Prov: N/A Addendum Outside chest x-ray from [facility] dated 09/26/2007 was submitted for comparison. The areaof focal pleural thickening withinthe right upper hemithorax is not well demonstrated on the chest x-ray.The 3 mm pulmonary nodule within the right lower lobe seen on the recentchest CT is not demonstrated by plain radiographs. Followup of theseabnormalities by CT is recommended. Dictated by: KEVIN KAY Electronically signed by: KEVIN KAY 07/09/2008 15:41 Transcribed: 07/09/2008 15:[address] CHEST, ABDOMEN AND PELVIS WITH IV CONTRAST 06/19/2008 History: 52-year-old woman with history of breast cancer Technique: Helical scanning of the chest, abdomen and pelvis wasperformed with oral and intravenous contrast Comparisons: None Findings: Chest CT: Biapical pleural - parenchymal opacity is seenmost likely related to scarring. There is no focal consolidation orpleural effusion. There is minimal nonspecific pleural based nodularitywithin the right upper hemithorax laterally (image 12-14, series IIa). Thismeasures approximately 16 mm in greatest dimension. There is a 3 mmnoncalcified pulmonary nodule within the right lower lobe (image 43) which is nonspecific. No pulmonary nodules are identified. There arepostsurgical changes within the low neck from left thyroidectomy. Nopathologically enlarged mediastinal or hilar lymph nodes are seen. There aresurgical clips in the right axilla. No axillary lymphadenopathy is seen. Heartsize is within normal limits. There is no pericardial effusion. IMPRESSION: 1. Nonspecific focal pleural thickening right upper hemithoraxlaterally as described above. 2. 3 mm noncalcified right lower lobe pulmonary nodule. 3. Followup is recommended for these nonspecific findings. Abdomen/pelvis CT: The liver is unremarkable in appearance without intrahepatic biliary ductal dilatation. The gallbladder is present.The spleen, pancreas, and adrenal glands are unremarkable. Both kidneysenhance symmetrically and there is no hydronephrosis. No pathologicallyenlarged upper abdominal or retroperitoneal lymph nodes are seen. There is atherosclerosis of the aorta. The uterus is present. There is no pelvic lymphadenopathy. There isno free air or fluid. There is bilateral spondylolysis at L5. IMPRESSION: 1. No acute intra-abdominal/pelvic process identified. . Report revised on 07/09/2008 3:41:43 PM by KEVIN KAY Dictated by: KEVIN KAY 06/19/2008 09:59 Electronically signed by: KEVIN KAY 06/19/2008 15:06 Transcribed: 06/19/2008 11:56 AMK Edna Lamb MD CT ORDERABLES Edited * POC CREATININE (06/19/2008 8:18 AM CDT) CREATININE POC 0.9 0.6 - 1.3 mg/dL [facility] Comment: The calculation for the estimated GFR on the i-STAT POC instrument has been changed to correspond to the IDMS-traceable MDRD Study, upon the recommendation of the box maker wood of the i-STAT instrument. The change was effective in our laboratory 02/05/2008. The impact of this change to the estimated GFR is minimal. This calculation is used by the main laboratory methodology also. GFR >60 >=60 mL/min/1.7 sq meter [facility] GFR, >60 >=60 mL/min/1.7 sq meter [facility] Capillary blood specimen (specimen) 06/19/2008 8:18 AM CDT 06/19/2008 8:18 AM CDT Edna Lamb MD POINT OF CARE TESTING Edite d INTERFACE SYSTEM Refer to clinic/hospital department [facility] CLIA# [id number] [address] [place] [address] documented in this encounter Visit Diagnoses Diagnosis Malignant neoplasm of breast (female), unspecified site documented in this encounter Care Teams Sales Contract Administrator Relationship Specialty Start Date End Date Ruddy Hobson MD PCP - General Family Practice 02/09/19 documented as of this encounter
--- OUTSIDE RECORDS SUMMARY | 2024-07-31 07:09 | XMS_ITS | Encounter Summary ---
Author Organization [facility] Address 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
--- OUTSIDE RECORDS SUMMARY | 2024-07-31 07:09 | XMS_ITS | Encounter Summary ---
Author Organization [facility] Address 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
== END 2024-07-31 07:03 | disposition home or self-care (01) ==
PROVIDERS: PCP Nurse Practitioner Family; Visit Provider Internal Medicine Cardiovascular Disease
DX: Z12.2 Encounter for screening for malignant neoplasm of respiratory organs (principal); Z87.891 Personal history of nicotine dependence
CPT/HCPCS: 76706

== ENCOUNTER 2025-02-21 11:19 | Emergency (ER) | payer MEDICARE, SELFPAY ==
[2025-02-21] VITALS (13 sets, daily range): BP systolic 121–171; BP diastolic 78–95; PULSE 63–91; RESP 12–23; O2SAT 92–98
--- NOTE | ~2025-02-21 | XR_ITS ---
EXAMINATION: XR chest 2V 02/21/2025 11:50 INDICATION: Chest pain PROCEDURE: Lateral views the chest COMPARISON: 07/22/2023 FINDINGS: Heart size normal. Pacemaker leads are stable. Prominent right nipple shadow. Chronic apical pleural thickening/scarring No focal air space disease, pulmonary edema, pleural effusion or suspected pneumothorax. IMPRESSION: 1: NO ACUTE CARDIOPULMONARY DISEASE. Reviewed, dictated and finalized at location [facility] [employer]
--- NOTE | 2025-02-21 11:21 | ECG_ITS ---
Test Date: 2025-02-21 11:30:10 Measurements Intervals Endeavor Rate: 69 P: 240 MT: 166 QRS: -80 QRSD: 194 T: 86 QT: 456 QTc: 490 Interpretive Statements ELECTRONIC ATRIAL PACEMAKER ELECTRONIC VENTRICULAR PACEMAKER BASELINE ARTIFACT- I, II, AVR, AVL NO FURTHER INTERPRETATION IS POSSIBLE ATYPICAL ECG No previous ECG available for comparison Electronically Signed On 02-21-2025 16:33:22 RIB BENDER by Antonio Lemus D.O.
[2025-02-21 11:35] LABS: Hematocrit 45.5 % (37.0-47.0); Hemoglobin 14.2 g/dL (12.0-15.0); Immature Granulocyte Percent A 0.7 % (0-0.5); Lymphocytes Absolute Auto 1.04 K/mm3 (0.9-3.2); Mean Corpuscular HGB Conc 31.2 g/dl (32-36); Mean Corpuscular Hemoglobin 28.5 pg (26-34); Mean Corpuscular Volume 91.4 fl (80-100); Nucleated Red Blood Cells Absolute Auto 0.000 K/mm3 (0.0-0.012); Nucleated Red Blood Cells Perc 0.0 % (0.0-0.2); Platelet Count Result 179 k/mm3 (150-375); Red Blood Count 4.98 M/mm3 (4.2-5.4); White Blood Count 7.4 K/mm3 (4.5-10.0)
[2025-02-21 11:47] LABS: INR 1.1; Prothrombin Time 14.0 Seconds (11.1-14.7)
[2025-02-21 11:48] LABS: Partial Thromboplastin Time 32.3 Seconds (22.3-36.8)
[2025-02-21 12:06] LABS: Alanine Aminotransferase 19 U/L (6-35); Albumin Level 4.6 g/dL (3.5-5.1); Alkaline Phosphatase 100 U/L (38-126); Anion Gap 10 mmol/L (4-12); Aspartate Amino Transferase 32 U/L (14-36); Bilirubin,Total 0.8 mg/dL (0.2-1.3); Blood Urea Nitrogen 11 mg/dL (7-17); Calcium 10.0 mg/dL (8.4-10.2); Carbon Dioxide 25 mmol/L (22-30); Chloride 101 mmol/L (98-107); Estimated CRCL calculation 54 ml/min; Estimated Glomerular Filt Rate > 60; Glucose 104 mg/dL (65-110); Lipase 65 U/L (23-300); Potassium 4.6 mmol/L (3.4-5.0); Sodium 136 mmol/L (137-145); Total Protein 7.7 g/dL (6.3-8.2)
[2025-02-21 12:12] LABS: Troponin I < 0.012 ng/mL (0.000-0.034)
--- NOTE | 2025-02-21 12:51 | ED.CHESTPAIN ---
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 Patient states that yesterday, she had onset left-sided chest sharpness that radiated to her left neck. Has been happening intermittently since then and only lasts a few minutes at a time. No recent illnesses that she is aware of. Denies fevers, chills, cough, congestion, shortness of breath. Related Data Home Medications ?Medication ?Instructions ?Recorded ?Confirmed ?Last Taken ?Type cholecalciferol (vitamin D3) 25 25 mcg PO HS 06/29/21 08/10/22 08/08/22 21:00 History mcg (1,000 unit) capsule losartan 100 mg tablet 100 mg PO HS 06/29/21 08/10/22 08/09/22 21:00 History magnesium 250 mg tablet 250 mg PO HS 06/29/21 08/10/22 08/08/22 21:00 History spironolactone 25 mg tablet 25 mg PO DAILY 06/29/21 08/10/22 08/09/22 09:00 History (Aldactone) aspirin 81 mg tablet,delayed 81 mg PO HS 08/10/22 08/10/22 08/09/22 21:00 History release Allergies Allergy/AdvReac Type Severity Reaction Status Date / Time Penicillins Allergy Intermediate Hives Verified 08/10/22 10:52 ciprofloxacin Allergy Mild Nausea and Verified 08/10/22 10:52 Vomiting erythromycin base Allergy Mild Nausea and Verified 08/10/22 10:52 Vomiting hydrochlorothiazide Allergy Mild Unknown Verified 07/29/21 12:52 triamterene Allergy Mild Unknown Verified 07/29/21 12:52 Antihistamines - Alkylamine Allergy Unknown Unknown Verified 07/29/21 12:52 cefuroxime Allergy Unknown Gastrointestinal Verified 08/10/22 10:52 Upset nitrofurantoin Allergy Unknown Gastrointestinal Verified 08/10/22 10:52 Upset codeine AdvReac Mild Nausea and Verified 08/10/22 10:52 Vomiting Review of Systems Review of Systems: All systems reviewed & are unremarkable except as noted in HPI and below PMFSH Past Medical History Medical History Pacemaker Peripheral arterial disease Evidence of at least mild peripheral tibial disease on arterial Dopplers taken in May 2022. Obstructive sleep apnea Uses a mandibular advancement device. Osteopenia History of right breast cancer Status post lumpectomy and chemoradiation. Hypothyroidism Anxiety Emphysema of lung Hypertension Surgical History Surgical History History of lumpectomy of right breast (10/05/07) History of tonsillectomy (1957) History of dilation and curettage (01/2000) Benign uterine and endocervical polyps. History of endometrial ablation (03/2001) History of tubal ligation (1978) History of partial thyroidectomy (06/2004) Family History Family History Grandparent Family history of lung cancer Carcinoma of colon Acute myocardial infarction Mother Family history of congestive heart failure Congestive heart failure Family history of atrial fibrillation Asthma Hypertension Sibling Family history of liver cancer Sibling Family history of melanoma Social History Social History Social History: Surrogate medical decision maker: Zbigniew Encarnacion, spouse. Code status: Full code. Smoking packs per day: 0.5 Smoking cigarettes per day: 10.0 Years smoked: 20 Smoking pack-years: 10.00 Smoking status: Former smoker Tobacco type: cigarettes Second hand tobacco smoke exposure: No Additional smoking assessment comments: Quit in 2005. Alcohol intake: never Substance use: never Lack of Transportation: No Lack of Food: Never True Current Housing: I Have Housing Concerned About Future Housing: No Difficulty Paying Gas/Electric Bills: No Difficulty Paying for Meds: No Currently Unemployed: No Education: High School Diploma/GED Difficulty w/ Childcare or Family Care: No Additional living arrangements comments: Lives with spouse in [place]. Additional occupation/education comments: Retired. Spiritual care concerns: No Exam Narrative: APPEARANCE: No acute distress, nontoxic, resting in bed EYES: EOMI HEENT: Normocephalic, atraumatic, OMM RESPIRATORY: No respiratory distress Clear to auscultation bilaterally with no rhonchi wheezing or rales. CARDIOVASCULAR: Regular rate and rhythm without murmurs rubs or gallops. Pacemaker in place to the left chest wall, no erythema or drainage ABDOMINAL: Soft, nontender, nondistended, no rebound or guarding MUSCULOSKELETAl: Moves all extremities. No clubbing, cyanosis or edema. NEURO: Awake and alert. Following commands, speech normal, no focal deficits SKIN:: Warm, dry. No rashes lesions or abrasions PSYCHIATRIC: Normal affect/mood, Course Vital Signs Vital signs: Vital Signs Pulse Rate 77 02/21/25 11:23 Respiratory Rate 18 02/21/25 11:23 Blood Pressure 171/84 H 02/21/25 11:23 Pulse Oximetry 97 02/21/25 11:23 Oxygen Delivery Room Air 02/21/25 11:23 Pulse Rate 69 02/21/25 14:01 Respiratory Rate 23 H 02/21/25 14:01 Blood Pressure 121/78 02/21/25 14:01 Pulse Oximetry 95 02/21/25 14:01 Oxygen Delivery Room Air 02/21/25 11:26 MDM MDM Narrative Medical decision making narrative: A 69-year-old female Presenting for chest pain. On initial evaluation patient was in no acute distress afebrile, hemodynamic stable. Differentials include but are not limited to: ACS, PE, PNA, bronchitis, costochondritis, pleurisy, viral syndrome, GERD Notable exam findings: Heart and lungs clear, pacemaker in place with no surrounding erythema or drainage I personally reviewed the patient's lab result. Notable lab findings: CBC and CMP without significant abnormalities. Troponin negative. I personally reviewed the patient's images and interpret as follows: Chest x-ray: Normal cardiac silhouette, no consolidations, no pleural effusions, no pulmonary vascular congestion I personally reviewed the patient's EKGs: Electronic atrial pacemaker, electronic ventricular pacemaker, no acute ST or T-wave changes Patient remained asymptomatic through her ED course. Patient's EKGs and labs are without significant high risk changes. Cardiac risk factors reviewed. Patient is felt likely low risk for ACS and reasonable for further risk stratification testing as an outpatient. Pain was not sudden or maximal in onset without tearing or ripping quality. No other signs of symptoms suggest aortic dissection. No pneumonia seen on evaluation today. Patient is felt to be a reasonable candidate for continued evaluation as an outpatient Differential Diagnosis Differential Diagnosis: ACS, PE, PNA, bronchitis, costochondritis, pleurisy, viral syndrome, GERD Lab Data 02/21/25 11:31 02/21/25 11:31 Labs: Lab Results 02/21/25 Range/Units 11:31 WBC 7.4 (4.5-10.0) K/mm3 RBC 4.98 (4.2-5.4) M/mm3 Hgb 14.2 (12.0-15.0) g/dL Hct 45.5 (37.0-47.0) % MCV 91.4 (80-100) fl MCH 28.5 (26-34) pg MCHC 31.2 L (32-36) g/dl RDW 13.3 (11.5-14.5) % Plt Count 179 (150-375) k/mm3 MPV 9.1 (7.4-10.4) fl Immature Gran % (Auto) 0.7 H (0-0.5) % Neut % (Auto) 75.8 H (45.5-73.1) % Lymph % (Auto) 14.0 L (18.3-44.2) % [place] % (Auto) 7.5 (2.6-8.5) % Eos % (Auto) 1.6 (0-4.4) % Baso % (Auto) 0.4 (0.2-1.2) % Lymph # (Auto) 1.04 (0.9-3.2) K/mm3 [place] # (Auto) 0.6 (0.1-0.6) K/mm3 Eos # (Auto) 0.1 (0-0.3) K/mm3 Baso # (Auto) 0.0 (0.0-0.1) K/mm3 Abs Immat Gran (auto) 0.05 H (0.00-0.031) K/mm3 Absolute Neuts (auto) 5.6 (1.3-6.7) K/mm3 Absolute Nucleated RBC 0.000 (0.0-0.012) K/mm3 Nucleated RBC % 0.0 (0.0-0.2) % PT 14.0 (11.1-14.7) Seconds INR 1.1 APTT 32.3 (22.3-36.8) Seconds Sodium 136 L (137-145) mmol/L Potassium 4.6 (3.4-5.0) mmol/L Chloride 101 (98-107) mmol/L Carbon Dioxide 25 (22-30) mmol/L Anion Gap 10 (4-12) mmol/L BUN 11 (7-17) mg/dL Creatinine 0.73 (0.7-1.0) mg/dL Estim Creat Clear Calc 54 ml/min Estimated GFR > 60 (59 - ) Glucose 104 (65-110) mg/dL Calcium 10.0 (8.4-10.2) mg/dL Total Bilirubin 0.8 (0.2-1.3) mg/dL AST 32 (14-36) U/L ALT 19 (6-35) U/L Alkaline Phosphatase 100 (38-126) U/L Troponin I < 0.012 (0.000-0.034) ng/mL Total Protein 7.7 (6.3-8.2) g/dL Albumin 4.6 (3.5-5.1) g/dL Lipase 65 (23-300) U/L Imaging Data Radiologist's impression: ITS Impressions Chest X-Ray 02/21/25 11:52 IMPRESSION: 1: NO ACUTE CARDIOPULMONARY DISEASE. Discharge Plan Discharge Clinical Impression: Chest pain Qualifiers: Chest pain type: unspecified Qualified Code(s): R07.9 - Chest pain, unspecified Patient Disposition: Home Condition: Stable Instructions: Antibiotic Form, Chest Pain (ED) Additional Instructions: Lab work and imaging showed no evidence of heart damage at this time, interrogation of her pacemaker showed no concerning events. Follow-up with your shell worker in next couple weeks for re-evaluation. Return to the ED for new or worsening symptoms. Patient Language: Polish Prescriptions: No Action losartan 100 mg tablet 100 mg PO HS spironolactone [Aldactone] 25 mg tablet 25 mg PO DAILY cholecalciferol (vitamin D3) 25 mcg (1,000 unit) capsule 25 mcg PO HS magnesium 250 mg tablet 250 mg PO HS aspirin 81 mg Tablet,Delayed Release (Dr/Ec) 81 mg PO HS clindamycin HCl 300 mg capsule 300 mg PO Q12H Qty: 10 0RF ibuprofen 600 mg tablet 600 mg PO TID PRN (Reason: pain) Qty: 20 0RF acetaminophen 500 mg capsule 1,000 mg PO Q6H PRN (Reason: pain) Qty: 20 0RF Follow-up/Referrals: Marinelli,Erika Howard APRN [Primary Care Provider, Unknown] Mario Alberto Stallworth MD [Physician, Cardiology]
--- OUTSIDE RECORDS SUMMARY | 2025-02-21 13:44 | XMS_ITS | Clinical Summary ---
Author Organization [facility] [address] [facility] [address] [place] [address] Care Team Providers Care Computer Graphics Illustrator Name Role Phone Elena Tang NP Primary Care Provider [phone] Rosmery Cardoso MD Unavailable [phone] Thomas Gonsales MD Unavailable Jesse Monterroso MD Unavailable [phone] Allergies Active Allergy Reactions Criticality Noted Date Comments Azithromycin Diarrhea Low 03/26/2020 Cefuroxime Stomach upset Low 08/10/2022 Chlorhexidin-Isopropyl Alcohol Unknown Medium 04/21/2020 Erythema Ciprofloxacin Nausea & Vomiting Low 08/10/2022 Codeine Nausea And Vomiting Low 09/10/2008 Hydrochlorothiazide Unknown Low 07/29/2021 Nitrofurantoin Stomach upset Low 08/10/2022 Penicillins Shortness of breath High 09/10/2008 Twfvnls-Agf-Bkn Reductase Inhibitors Muscle pain Medium 01/18/2025 Triamterene Unknown Low 07/29/2021 Rivaroxaban Other (See comments) Low 03/01/2023 Menopausal symptoms, excessive sweating Medications cholecalciferol (VITAMIN D3) 2,000 unit tablet take 2 by oral route once 0 0 5 Active magnesium oxide (MAG-OX) 250 mg (150.8 mg elemental) tabletIndication s:hypomagnesemia Take 1 tablet (250 mg total) by mouth daily Active furosemide (LASIX) 20 mg tabletIndication s: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 failure Take 1 tablet (20 mg total) by mouth daily as needed (swelling; do not take for more than 4 consecutive days) 15 tablet 3 4 Active spironolactone (ALDACTONE) 25 mg tablet TAKE 1 TABLET(25 MG) BY MOUTH DAILY 90 tablet 3 5 Active apixaban (ELIQUIS) 5 mg tabletIndication s:Paroxysmal atrial fibrillation (HCC) Take 1 tablet (5 mg total) by mouth 2 (two) times a day 180 tablet 3 5 Active losartan (COZAAR) 100 mg tablet TAKE 1 TABLET(100 MG) BY MOUTH DAILY 90 tablet 3 5 Active ondansetron (ZOFRAN) 4 mg tabletIndication s:Nausea and vomiting, unspecified vomiting type Take 1 tablet (4 mg) total 30 minutes before starting colonoscopy prep. Use the 2nd tablet as needed for nausea and vomiting. 2 tablet 5 Active polyethylene glycol (GoLYTELY) 236-22.74-6.74 -5.86 gram solutionIndicati ons:Abnormal CT scan, colon Take 4,000 mL by mouth once for 1 dose 4000 mL 5 025 Active Problems Problem Noted Date Diagnosed Date Abnormal CT scan, colon 01/30/[address] scan, esophagus 01/30/2025 AV block 01/21/2025 High-grade atrioventricular block 01/21/2025 Pain in left elbow 01/21/2025 Symptomatic bradycardia 01/21/2025 Medicare annual wellness visit, subsequent 01/21 Assessment & Plan (01/21/2025 12:39 PM COFFEE URN ATTENDANT): A yearly Medicare Annual Wellness Visit has been performed today. Janet Loo is up to date on screening tests. She is in need of None- no screening indicated at this time- these have been ordered. She is not up to date on needed preventative vaccinations; She is in need of Covid-19 (booster). These have been ordered/arranged unless otherwise indicated. Colon wall thickening 11/26/2024 Thickening of esophagus 11/26/2024 Malignant neoplasm of colon 11/26/2024 Former smoker 07/13/2024 Esophageal dysphagia 06/28/2024 Primary hypertension 05/03/2023 Assessment & Plan (01/21/2025 12:37 PM COFFEE URN ATTENDANT): Chronic, stable. Continuing Losartan and Spironolactone. Assessment & Plan (03/23/2024 3:19 PM COFFEE URN ATTENDANT): BP well controlled in office. Continuing Losartan [...] 12/08/2022 Mixed hyperlipidemia 12/08/2022 Assessment & Plan (01/21/2025 12:38 PM COFFEE URN ATTENDANT): Chronic, stable. Holding Atorvastatin d/t arthralgias per Production Control Specialist. Assessment & Plan (09/15/2023 2:54 PM CDT): Lipid panel well controlled at previous lab draw. Updated panel ordered. Multiple joint pain 12/08/2022 Assessment & Plan (07/19/2024 11:46 AM CDT): Recheck RF, has been slightly increased in the past. Assessment & Plan (03/23/2024 3:18 PM COFFEE URN ATTENDANT): RF was mildly elevated x 6 months ago. Will recheck and pt will consider seeing Roving Changer, possibly through [facility] Assessment & Plan (09/15/2023 2:54 PM CDT): Positive RF 12/2022 from previous PCP. Will get updated labs and see about getting patient in with Roving Changer. Right upper quadrant pain 12/08/2022 Paroxysmal atrial [...] 01/08/2022 COVID-19 02/24/2020 Anxiety 03/14/2018 Cough 05/08/2009 Assessment & Plan (11/26/2024 4:26 PM CDT): Improved, repeat CXR in 4 weeks Breast cancer 09/20/2008 Overview (09/15/2023): 09/21/07 Stage I ([id number]) IDC RIGHT breast TRIPLE NEGATIVE Ki67 36% [...] DEXA screen, patient gets this through her BLOCK CUTTER (Dr Robert Franklin). Scheduled to see him 10/2023 Pulmonary emphysema 09/20/2008 Tremor 09/20/2008 Malignant neoplasm of breast 09/20/2008 Overview (06/27/2024): 09/21/07 Stage I ([id number]) IDC RIGHT breast TRIPLE NEGATIVE Ki67 36% [...] feels like rib Same as last yaer Resolved Problems Problem Noted Date Diagnosed Date Resolved Date Malignant neoplasm of colon 11/26/2024 01/21/2025 Encounters Date Type Department Care Team Description 02/18/2025 Results Follow-Up [facility] Medicine Physicians [facility] Surgery [address] [place] [address] [address] [place] [address] Gabbi Hudson MD Cytology 02/13/2025 12:55 PM COFFEE URN ATTENDANT - 02/13/2025 11:59 PM COFFEE URN ATTENDANT Hospital Encounter [facility] Medical Office Building [address] [place] [id number] Hematuria, unspecified type Discharge Disposition: Discharge to home or self care 02/13/2025 9:40 AM COFFEE URN ATTENDANT Office Visit [facility] Physicians [facility] Surgery [address] [place] [phone] Gabbi Hudson MD Hematuria, unspecified type (Primary Dx) 02/12/2025 Telephone [facility] Medical Group Primary Care at [address] [phone] Elena Tang NP Medical Question/Miscellaneou s 01/31/2025 Telephone [facility] Group Gastroenterology at [address] [place] [address] Shena Hernandez EGD & Colonoscopy Canceled 01/30/2025 4:00 PM COFFEE URN ATTENDANT Office Visit [facility] Group Gastroenterology at [address] [place] [address] Micky Olmos MD Abnormal CT scan, colon (Primary Dx); Abnormal CT scan, esophagus; Chronic RLQ pain; Heartburn 01/30/2025 Orders Only [facility] Gastroenterology at [address] [place] [phone] Micky Olmos MD Nausea and vomiting, unspecified vomiting type (Primary Dx); Abnormal CT scan, colon; Abnormal CT scan, esophagus 01/29/2025 Results Follow-Up [facility] Primary Care at [address] [phone] Urogram W Contrast No 3D 01/22/2025 8:43 AM COFFEE URN ATTENDANT - 01/22/2025 11:59 PM COFFEE URN ATTENDANT Hospital Encounter [facility] [address] [place] [address] Bladder wall thickening; Gross hematuria Discharge Disposition: Discharge to home or self care 01/22/2025 Results Follow-Up [facility] Primary Care at [address] [phone] Elena Tang NP Vaginitis panel Vaginal, CBC with auto differential, Comprehensive metabolic panel, Additional followed-up results: 7 01/21/2025 3:57 PM COFFEE URN ATTENDANT - 01/21/2025 11:59 PM COFFEE URN ATTENDANT Hospital Encounter [address] [address] Dysuria Discharge Disposition: Discharge to home or self care 01/21/2025 11:45 AM COFFEE URN ATTENDANT Lab [place] [id number] Primary hypertension; Mixed hyperlipidemia; Iron deficiency; B12 deficiency; Vitamin D deficiency 01/21/2025 11:30 AM COFFEE URN ATTENDANT - 01/21/2025 11:59 PM COFFEE URN ATTENDANT Hospital Encounter [address] [address] Subacute cough Discharge Disposition: Discharge to home or self care 01/21/2025 10:30 AM COFFEE URN ATTENDANT Office Visit [facility] Primary Care at [address] [phone] Elena Tang NP Medicare annual wellness visit, subsequent (Primary Dx); Primary hypertension; Mixed hyperlipidemia; Nocturnal leg cramps; Dysuria; Iron deficiency; B12 deficiency; Vitamin D deficiency 01/21/2025 Telephone [facility] [address] [place] [address] May01/18/2025 9:15 AM COFFEE URN ATTENDANT Office Visit [facility] Medical [facility] Cardiology [address] [facility] [address] [place] [phone] Mario Alberto Stallworth MD Paroxysmal atrial fibrillation (HCC) (Primary Dx); Peripheral vascular disease; Primary hypertension; Cardiac pacemaker in situ; Chronic anticoagulation 01/16/2025 Telephone [facility] Primary Care at [address] [phone] Elena Tang NP Medical Question/Miscellaneou s 12/21/2024 4:16 PM CDT - 12/21/2024 11:59 PM CDT Hospital Encounter [facility] Lab [address] [place] [address] Hematuria, unspecified type Discharge Disposition: Discharge to home or self care 12/21/2024 2:00 PM CDT Office Visit [facility] [place] [facility] [address] [facility] [address] [place] [address] Oscar Boggs NP Hematuria, unspecified type (Primary Dx) 12/16/2024 Results Follow-Up [facility] Convenient Care at [address] [phone] Jose Alexander NP Urine culture Urine, clean voided 12/14/2024 10:17 AM CDT - 12/14/2024 11:59 PM CDT Hospital Encounter [address] [address] Gross hematuria Discharge Disposition: Discharge to home or self care 12/14/2024 9:45 AM CDT Office Visit [facility] Convenient Care at [address] [phone] Jose Alexander NP Gross hematuria (Primary Dx) 12/14/2024 Nurse Triage [facility] Primary Care at [address] [phone] Elean Tang, LEDA 12/14/2024 Telephone [facility] Group Primary Care at [address] [phone] Elena Tang, LEDA 12/12/2024 11:00 AM CDT Ancillary Procedure [facility] Cardiology [address] [place] [address] [place] [phone] Paroxysmal atrial fibrillation (HCC) (Primary Dx); AV block; Sinus pause; Cardiac pacemaker in situ 12/12/2024 Results Follow-Up [facility] Primary Care at [address] [phone] Elena Tang NP CBC with auto differential, Comprehensive metabolic panel, Differential, auto, eGFR 12/11/2024 11:40 AM CDT Lab [address] [address] Primary hypertension 12/11/2024 Orders Only [facility] Cardiology [address] [facility] [address] [place] [phone] Mario Alberto Stallworth MD Cardiac pacemaker in situ (Primary Dx); Paroxysmal atrial fibrillation (HCC); Complete heart block (HCC) 12/11/2024 Orders Only [facility] Primary Care at [address] [phone] Elena Tang, LEDA Bladder wall thickening (Primary Dx); Gross hematuria 12/10/2024 Orders Only [facility] Primary Care at [address] [phone] Elena Tang NP 12/10/2024 Orders Only [facility] Primary Care at [address] [phone] Elena Tang, LEDA Primary hypertension (Primary Dx) 12/10/2024 Orders Only [facility] Primary Care at [address] [phone] Elena Tang, LEDA 12/09/2024 Results Follow-Up [facility] Convenient Care at [address] [phone] Roseline Montoya PA Urine culture Urine, clean voided 12/07/2024 9:32 AM CDT - 12/07/2024 11:59 PM CDT Hospital Encounter [address] [address] Acute cystitis with hematuria Discharge Disposition: Discharge to home or self care 12/07/2024 9:30 AM CDT Office Visit [facility] Convenient Care at [address] [phone] Jose Alexander NP Acute cystitis with hematuria (Primary Dx) 12/07/2024 Orders Only [facility] Primary Care at [address] [phone] Elena Tang NP 11/28/2024 Results Follow-Up [facility] Primary Care at [address] [phone] Elena Tang NP Urine culture Urine, clean voided, XR Chest PA Lateral 2 Views 11/26/2024 3:11 PM CDT - 11/26/2024 11:59 PM CDT Hospital Encounter [address] [address] Urinary symptom or sign Discharge Disposition: Discharge to home or self care 11/26/2024 2:30 PM CDT Office Visit [facility] Primary Care at [address] [phone] Elena Tang NP Bladder wall thickening (Primary Dx); Right upper quadrant pain; Colon wall thickening; Thickening of esophagus; Subacute cough 11/26/2024 Telephone [facility] Group Gastroenterology at [address] [place] [address] Bala Brock MA 11/25/2024 Results Follow-Up [facility] Gastroenterology at [address] [place] [phone] Abdomen Pelvis W Contrast from Last 3 Months Immunizations Immunization Administration Dates Next Due Influenza, Unspecified 01/21/2025(Deferr ed: Patient Refused),02/29/2024(Deferred: Patient Refused),02/28/2023(Deferred: Patient Refused),02/28/2023(Deferred: Patient Refused),02/28/2022(Deferred: Patient Refused) Pfizer SARS-CoV-2 Monovalent Vaccination (12+ Yrs) PURPLE 05/17/2020,04/26/2020 Pneumococcal Conjugate Pcv20 01/21/2025(Deferred : Patient Refused) Tdap 01/21/2025(Deferred: Patient Ref used) ZOSTER Recombinant 01/21/2025(Deferred: Patient Refused) Surgical History Surgery Date Site/Laterality Comments TUBAL LIGATION THYROIDECTOMY, PARTIAL CARDIAC PACEMAKER PLACEMENT EXCISION / BIOPSY BREAST / NIPPLE / DUCT x2 Nipple Exploratory surgery DILATION AND CURETTAGE OF UTERUS TONSILLECTOMY/ADENOIDECTOMY BREAST LUMPECTOMY Medical History Medical History Date Comments Breast cancer (HCC) 2007 R. Lumpectom y/RTX/Chemo. HTN (hypertension) EVAN (obstructive sleep apnea) Thyroid nodule Partial thyroide ctomy. PAF (paroxysmal atrial fibrillation) PAD (peripheral artery disease) COPD (chronic obstructive pulmonary disease) Vitamin D deficiency S/P placement of cardiac pacemaker HLD (hyperlipidemia) Covid-19 LZU (generalized anxiety disorder) Low bone mass Family History Medical History Relation Name Comments Cancer Brother 1 Shamri Ursprung Liver cancer Brother 1 Shamir Ursprung Cancer Brother 2 Ashish Ursprung Melanoma Brother 2 Ashish Ursprung Cancer Maternal Grandfather Finn Letha Liver cancer Maternal Grandfather Finn Letha Heart disease Maternal Grandmother Marcella Letha Heart disease Mother Daphne Cinda Stroke Paternal Grandmother Yelitza Cinda Relation Name Status Comments Brother 1 Shamir Ursprung Brother 2 Ashish Ursprung Maternal Grandfather Finn Letha Maternal Grandmother Marcella Letha Mother Daphne Lvung Paternal Grandmother Yelitza Cinda Social History Tobacco Use Types Packs/Day Years Used Date Smoking Tobacco: Former Cigarettes 0.5 15 Q uit: 10/10/2005 Smokeless Tobacco: Never Tobacco Cessation:Counseling Given: Not Answered Alcohol Use Standard Drinks/Week Comments Not Currently 0 (1 standard drink = 0.6 oz pur e alcohol) PHQ-2 Answer Date Recorded PHQ-2 Total Score (If total score is 3 or more points, staff should administer the PHQ-9) 2 01/21/2025 AUDIT-C Answer Date Recorded Q1: How often do you have a drink containing alcohol? Never 02/13/2025 Q2: How many drinks containi ng alcohol do you have on a typical day when you are drinking? Patient does not drink Q3: How often do you have si x or more drinks on one occasion? Never 02/13/2025 Comments Unknown Sex and Gender Information Value Date Recorded Sex Assigned at Not on file Legal Sex Female 6:35 AM COFFEE URN ATTENDANT Gender Identity Female 10/01/2019 4:34 PM CDT Sexual Orientation Choose not to disclose 2019 4:34 PM CDT Last Filed Vital Signs Vital Sign Reading Time Taken Comments Blood Pressure 150/78 01/30/2025 3:58 PM COFFEE URN ATTENDANT Pulse 72 01/30/2025 3:58 PM COFFEE URN ATTENDANT Temperature 36.7 C (98 F) 01/21/2025 10:37 AM COFFEE URN ATTENDANT Respiratory Rate 18 12/14/2024 9:31 AM CDT Oxygen Saturation 96% 01/30/2025 3:58 PM COFFEE URN ATTENDANT Inhaled Oxygen Concentration - - Weight 69.9 kg (154 lb) 02/13/2025 9:25 AM COFFEE URN ATTENDANT Height 162.6 cm (5' 4) 02/13/2025 9:25 AM COFFEE URN ATTENDANT Body Mass Index 26.43 02/13/2025 9:25 AM COFFEE URN ATTENDANT Plan of Treatment Upcoming Encounters Date Type Department Care Team (Late st Contact Info) Description 03/06/2025 8:00 AM COFFEE URN ATTENDANT Hospital Encounter [address] [address] Micky Olmos MD [address] [place] [phone] 03/06/2025 8:00 AM COFFEE URN ATTENDANT Anesthesia Event [address] [address] Zhao Sanches, ASSISTANT FOOTBALL COACH [address] [place] [address] 03/06/2025 8:00 AM COFFEE URN ATTENDANT - 03/06/2025 9:00 AM COFFEE URN ATTENDANT Surgery [address] [address] Micky Olmos MD [address] [place] [address] [address] [place] [address] COLONOSCOPY Scheduled Procedures Name Priority Associated Diagnoses Date/Ti me COLONOSCOPY Abnormal CT scan, colon Abnormal CT scan, esophagus 03/06/2025 8:00 AM COFFEE URN ATTENDANT ESOPHAGOGASTRODUODENOSCOPY Abnormal CT scan, colon Abnormal CT scan, esophagus 03/06/2025 8:00 AM COFFEE URN ATTENDANT Health Maintenance Due Date Last Done Comments Hepatitis B Screening 1972 Covid-19 Vaccine ( season) 2024 05/17/2020, 04/26/2020 Breast Cancer Screening-Mammogram 04/24/2025 04/24/2024, 04/24/2024, 04/21/2023, Additional history exists DTaP/Tdap/Td Vaccine (1 - Tdap) 07/21/2025 Postponed from 1965 (Patient declined, but will receive in the future) Influenza Vaccine (#1) 2025 Postp oned from 10/29/2024 (Patient declined, but will receive in the future) Osteoporosis Screening-Bone Density Scan 10/20/2025 10/21/2023, 10/21/2023 Depression Screening 01/21/2026 01/21/2025, 11/26/2024, 07/19/2024, Additional history exists Fall Risk Assessment 01/21/2026 01/21/2025, 11/26/2024, 07/19/2024, Additional history exists Pneumococcal vaccine 65+ (1 of 2 - PCV) 01/21/2026 Postponed from 1973 (Patient declined, but will receive in the future) Well Visit 65+ 01/21/2026 01/21/2025 Zoster Vaccine (1 of 2) 01/21/2026 Post poned from 2004 (Patient declined, but will receive in the future) Colon Cancer Screening-DNA Stool 06/08/2027 06/07/2024, 09/14/2021, 06/02/2021 Hepatitis C Screening Completed 09/19/2023 Colon Cancer Screening-FIT Discontinued 06/07/2024 Medical Devices Implanted Type Area Billet Bed Operator Device Identifier Shelf Expiration Date Model / Serial / Lot Pacemaker Pacemaker Left: Chest Procedures Procedure Name Priority Date/Time Associated Diagnosis Comments CYTOLOGY Routine 02/13/2025 10:05 AM COFFEE URN ATTENDANT Hematuria, unspecified type POCT URINALYSIS DIPSTICK Routine 02/13/2025 9:30 AM COFFEE URN ATTENDANT Hematuria, unspecified type CT UROGRAM Schedule Routine, Read Routine (OP Routine) 01/22/2025 9:56 AM COFFEE URN ATTENDANT Bladder wall thickening Gross hematuria EGFR Routine 01/21/2025 11:43 AM COFFEE URN ATTENDANT Primary hypertension Mixed hyperlipidemia DIFFERENTIAL AUTO Routine 01/21/2025 11:43 AM COFFEE URN ATTENDANT Primary hypertension Mixed hyperlipidemia LIPID PANEL Routine 01/21/2025 11:43 AM COFFEE URN ATTENDANT Mixed hyperlipidemia VITAMIN D 25 HYDROXY Routine 01/21/2025 11:43 AM COFFEE URN ATTENDANT Vitamin D deficiency VITAMIN B12 Routine 01/21/2025 11:43 AM COFFEE URN ATTENDANT B12 deficiency IRON Routine 01/21/2025 11:43 AM COFFEE URN ATTENDANT Iron deficiency FERRITIN Routine 01/21/2025 11:43 AM COFFEE URN ATTENDANT Iron deficiency COMPREHENSIVE METABOLIC PANEL Routine 01/21/2025 11:43 AM COFFEE URN ATTENDANT Primary hypertension Mixed hyperlipidemia CBC WITH AUTO DIFFERENTIAL Routine 01/21/2025 11:43 AM COFFEE URN ATTENDANT Primary hypertension Mixed hyperlipidemia XR CHEST PA LATERAL 2 VIEWS Schedule Routine, Read Routine (OP Routine) 01/21/2025 11:41 AM COFFEE URN ATTENDANT Subacute cough VAGINITIS PANEL Routine 01/21/2025 11:27 AM COFFEE URN ATTENDANT Dysuria POCT URINALYSIS DIPSTICK Routine 12/21/2024 1:48 PM CDT Hematuria, unspecified type URINALYSIS, MICROSCOPIC ONLY Routine 12/21/2024 1:48 PM CDT Hematuria, unspecified type URINE CULTURE Routine 12/21/2024 1:48 PM CDT URINALYSIS AND REFLEX TO MICROSCOPIC AND CULTURE Routine 12/21/2024 1:48 PM CDT Hematuria, unspecified type POCT URINALYSIS DIPSTICK Routine 12/14/2024 10:09 AM CDT Gross hematuria URINE CULTURE Routine 12/14/2024 9:30 AM CDT Gross hematuria DEVICE CHECK - IN OFFICE Routine 12/12/2024 10:00 AM CDT AV block Sinus pause EGFR Routine 12/11/2024 11:43 AM CDT Primary hypertension DIFFERENTIAL AUTO Routine 12/11/2024 11:43 AM CDT Primary hypertension COMPREHENSIVE METABOLIC PANEL Routine 12/11/2024 11:43 AM CDT Primary hypertension CBC WITH AUTO DIFFERENTIAL Routine 12/11/2024 11:43 AM CDT Primary hypertension URINE CULTURE Routine 12/07/2024 10:00 AM CDT Acute cystitis with hematuria POCT URINALYSIS DIPSTICK Routine 12/07/2024 9:41 AM CDT Acute cystitis with hematuria HM PAP SMEAR Routine 12/04/2024 3:28 PM CDT HM PAP SMEAR Routine 12/04/2024 9:58 AM CDT POCT URINALYSIS DIPSTICK Routine 11/26/2024 2:52 PM CDT Bladder wall thickening URINE CULTURE Routine 11/26/2024 2:49 PM CDT Urinary symptom or sign STOOL DNA COLOGUARD Routine 06/07/2024 8:01 AM CDT Screening for colon cancer HM DEXA SCAN Routine 10/21/2023 2:50 PM CDT HEPATITIS C ANTIBODY Routine 09/19/2023 10:14 AM CDT Encounter for hepatitis C screening test for low risk patient from Last 3 Months or Most Recently Relevant to Health Maintenance Results * Cytology (02/13/2025 10:05 AM COFFEE URN ATTENDANT) Fluid (Urine, catherized (Cytology)) 02/13/2025 10:05 AM COFFEE URN ATTENDANT 02/13/2025 4:57 PM COFFEE URN ATTENDANT Narrative PATHOLOGY [facility] - 02/18/2025 11:45 AM COFFEE URN ATTENDANT EPIC results best viewed via link to PDF [facility] [place] [address] Note to Patients: This report may contain a detailed description of human tissue sent by a health care provider to the laboratory for pathologic evaluation. The content of this report is essential for diagnosis and may provide important critical findings. This information may be unfamiliar to patients to review without a medical professional present. It is advised that the patient review this report in the presence of a health care provider who can answer questions and explain the details. CYTOPATHOLOGY REPORT FINAL Patient Name: JANET LOO Gender: F : 1955 (Age: 69) [address]: [address] [place] [phone] Hospital #: [id number] Taken:02/13/2025 Received:02/13/2025 Reported: 02/18/2025 Patient Type: MHE SPECIMEN Service: DEFAULT Location: Physician(s): Gabbi Hudson MD FINAL DIAGNOSIS A. Urine, catheterized bladder: - Negative for high-grade urothelial carcinoma 02/18/2025 11:45 By this signature, I attest that the above diagnosis is based upon my personal examination of the slides(and/or other material indicated in the diagnosis). Edward Olvera M.D. Report Electronically Reviewed and Signed Out By Edward Olvera M.D. 02/18/2025 11:45:38 BUNNY Arango(ASCP) Gross Description A. Urine, catheterized bladder: 20 ml pink fluid in CytoRich Red vial - 1 Pap stained Cytospin. (ep) Clinical Diagnosis and History hematuria REPORT IMAGES AND SCANNED DOCUMENTS, IF INCLUDED, ONLY VIEWABLE IN PDF VERSION OF REPORT The performance characteristics of some immunohistochemical stains, in-situ hybridization and fluorescence in-situ hybridization tests and immunophenotyping by flow cytometry cited in this report (if any) were determined by the Surgical Pathology and Flow Cytometry Departments at [facility] as part of an ongoing senior quality analyst program and in compliance with federally mandated regulations drawn from the Clinical Laboratory Improvement Act of 1988 (CLIA '88). Some of these tests rely on the use of analyte specific reagents and are subject to specific labeling requirements by the US Food and Drug Administration. Such diagnostic tests may only be performed in a facility that is certified by the Department of Health and Human Services as a high complexity laboratory under CLIA '88. The FDA has determined that such clearance or approval is not necessary. This test is used for clinical purposes. It should not be regarded as investigational or for research. Nevertheless, federal rules concerning the medical use of analyte specific reagents require that the following disclaimer be attached to the report: This test was developed and its performance characteristics determined by the Surgical Pathology and Flow Cytometry Departments of [facility]. It has not been cleared or approved by the U. S. Food and Drug Administration. us Zbigniewsekiran Hudson MD LAB CYTOLOGY ORDERAB LES Final Result PATHOLOGY [facility] * POCT urinalysis dipstick (02/13/2025 9:30 AM COFFEE URN ATTENDANT) Color, Urine, POC Yellow Clarity, ur, POC Clear Clear Glucose, ur, POC Negative Negative Bilirubin, ur, POC Negative Negative Ketones, ur, POC Negative Negative Specific Strawberry, POC 1.010 1.003 - 1.030 Blood, ur, POC Negative Negative pH, ur, POC 6.0 5.0 - 8.0 Protein, ur, POC Negative Negative Urobilinogen, urine, POC 0.2 0.2 - 1.0 mg/dL Nitrite, ur, POC Negative Negative Leukocytes, ur, POC Negative Negative Lot Number 0 Urine 02/13/2025 9:30 AM COFFEE URN ATTENDANT us Abidakiran Magdaleno Hudson MD POINT OF CARE TEST O RDERABLES Final Result * CT Urogram W Contrast No 3D (01/22/2025 9:56 AM COFFEE URN ATTENDANT) Anatomical Region Laterality Modality Body N/A Computed Tomogra phy 01/29/2025 1:44 PM COFFEE URN ATTENDANT Impressions 01/29/2025 1:44 PM COFFEE URN ATTENDANT No findings identified to suggest etiology the patient's hematuria. No definite nephrolithiasis or urolithiasis. No collecting system filling defect. No renal mass. Electronically signed by: Atif Gould M.D. Narrative 01/29/2025 1:44 PM COFFEE URN ATTENDANT EXAMINATION: CT UROGRAM W CONTRAST NO 3D HISTORY: gross hematuria, neg for infection, hx ca, decreased urine output. TECHNIQUE: Precontrast images of the abdomen. Abdomen and pelvis images with intravenous and without oral contrast using helical scanning technique with dynamic intravenous contrast injection. Corticomedullary, nephrographic, excretory phase images were acquired. Reconstructed coronal and sagittal MPR images reviewed. All images stored on PACS. Automated exposure control was used as a dose optimization technique for this examination. COMPARISON: CT dated November 21, 2024 FINDINGS: URINARY TRACT: KIDNEYS: No identified significant cystic or solid masses. No calculi. Normal renal collecting systems. URETERS AND BLADDER: No hydroureter. No masses or mucosal abnormalities. LOWER CHEST: The lung bases are clear. The heart is normal in size without pericardial effusion. LIVER: Normal in size. No identified cystic or solid masses. GALLBLADDER:No radiopaque gallstones are seen. BILIARY: No intrahepatic or extrahepatic ductal dilatation. SPLEEN: Normal length. No focal lesions. PANCREAS: No identified cystic or solid masses. No significant calcifications. No adjacent inflammation or peripancreatic fluid collections. Pancreatic duct is not dilated. ADRENALS: No discrete nodules. GI: No dilated bowel loops. No obvious wall thickening. Normal appendix. No significant diverticular disease. PERITONEUM: No free intraperitoneal air or ascites. RETROPERITONEUM:No mass or adenopathy REPRODUCTIVE:No significant abnormality VASCULATURE: No abdominal aortic aneurysm. MUSCULOSKELETAL: No acute findings. Bilateral L5 pars defect. OTHER: No other acute findings. Procedure Note Atif Gould MD - 01/29/2025 EXAMINATION: CT UROGRAM W CONTRAST NO 3D HISTORY: gross hematuria, neg for infection, hx ca, decreased urine output. TECHNIQUE: Precontrast images of the abdomen. Abdomen and pelvis images with intravenous and without oral contrast using helical scanning technique with dynamic intravenous contrast injection. Corticomedullary, nephrographic, excretory phase images were acquired. Reconstructed coronal and sagittal MPR images reviewed. All images stored on PACS. Automated exposure control was used as a dose optimization technique for this examination. COMPARISON: CT dated November 21, 2024 FINDINGS: URINARY TRACT: KIDNEYS: No identified significant cystic or solid masses. No calculi. Normal renal collecting systems. URETERS AND BLADDER: No hydroureter. No masses or mucosal abnormalities. LOWER CHEST: The lung bases are clear. The heart is normal in size without pericardial effusion. LIVER: Normal in size. No identified cystic or solid masses. GALLBLADDER:No radiopaque gallstones are seen. BILIARY: No intrahepatic or extrahepatic ductal dilatation. SPLEEN: Normal length. No focal lesions. PANCREAS: No identified cystic or solid masses. No significant calcifications. No adjacent inflammation or peripancreatic fluid collections. Pancreatic duct is not dilated. ADRENALS: No discrete nodules. GI: No dilated bowel loops. No obvious wall thickening. Normal appendix. No significant diverticular disease. PERITONEUM: No free intraperitoneal air or ascites. RETROPERITONEUM:No mass or adenopathy REPRODUCTIVE:No significant abnormality VASCULATURE: No abdominal aortic aneurysm. MUSCULOSKELETAL: No acute findings. Bilateral L5 pars defect. OTHER: No other acute findings. IMPRESSION: No findings identified to suggest etiology the patient's hematuria. No definite nephrolithiasis or urolithiasis. No collecting system filling defect. No renal mass. Electronically signed by: Atif Gould M.D. us Elena Tang ELECTRICAL TECHNICIAN INSTRUCTOR IMG CT PROCEDURES Final Result * eGFR (01/21/2025 11:43 AM COFFEE URN ATTENDANT) Pathologist [facility] eGFR >90 >=60 mL/min/1. 73 m2 Comment: Interpretive Data Reference Interval Normal >/= 90 mL/min/1.73m2 Mildly decreased* 60 - 89 mL/min/1.73m2 Mildly to moderately decreased 45 - 59 mL/min/1.73m2 Moderately to severely decreased 30 - 44 mL/min/1.73m2 Severely decreased 15 - 29 mL/min/1.73m2 Kidney Failure < 15 mL/min/1.73m2 *Relative to young adult level Estimated glomerular filtration rate is determined by the 2020 CKD-EPI equation recommended by the National Kidney [employer] (A Unifying Approach to GFR Estimation: Recommendations of the NKF-ASK Task Force on Reassessing the Inclusion of Race in Diagnosing Kidney Disease, SERASMarily 2020). The CKD-EPI equation should not be used for patients with unstable renal function and has not been validated in children and those over 70. Current interpretive data was last reviewed 2020. Blood 01/21/2025 11:4 3 AM COFFEE URN ATTENDANT 01/21/2025 2:38 PM COFFEE URN ATTENDANT us Elena Tang NP LAB BLOOD ORDERABLES Final Resul t [facility] [address] [facility] [place] [address] * Differential, auto (01/21/2025 11:43 AM COFFEE URN ATTENDANT) Pathologist [facility] Neutrophil abs 4.74 1.50 - 6.50 K/cumm Imm gran abs 0.02 0.00 - 0.10 K/cumm [facility] Lymphocyte abs 1.17 0.80 - 3.30 K/cumm [facility] Monocyte abs 0.57 0.20 - 0.80 K/cumm [facility] Eosinophil abs 0.16 0.00 - 0.50 K/cumm [facility] Basophil abs 0.03 0.00 - 0.10 K/cumm [facility] Neutrophil pct 70.9 % [facility] Comment: Interpretive Data Percent cell count reference ranges are not reported, since discordance with absolute values may lead to misinterpretation of CBC data. Current Interpretive Data was last revised on 2017. Imm gran pct 0.3 % [facility] Comment: Interpretive Data Percent cell count reference ranges are not reported, since discordance with absolute values may lead to misinterpretation of CBC data. Current Interpretive Data was last revised on 2017. Lymphocyte pct 17.5 % [facility] Comment: Interpretive Data Percent cell count reference ranges are not reported, since discordance with absolute values may lead to misinterpretation of CBC data. Current Interpretive Data was last revised on 2017. Monocyte pct 8.5 % [facility] Comment: Interpretive Data Percent cell count reference ranges are not reported, since discordance with absolute values may lead to misinterpretation of CBC data. Current Interpretive Data was last revised on 2017. Eosinophil pct 2.4 % [facility] Comment: Interpretive Data Percent cell count reference ranges are not reported, since discordance with absolute values may lead to misinterpretation of CBC data. Current Interpretive Data was last revised on 2017. Basophil pct 0.4 % [facility] Comment: Interpretive Data Percent cell count reference ranges are not reported, since discordance with absolute values may lead to misinterpretation of CBC data. Current Interpretive Data was last revised on 2017. Blood 01/21/2025 11:4 3 AM COFFEE URN ATTENDANT 01/21/2025 2:39 PM COFFEE URN ATTENDANT us Elena Tang NP LAB BLOOD ORDERABLES Final Resul t [facility] [address] [facility] [place] [address] * (ABNORMAL) CBC with auto differential (01/21/2025 11:43 AM COFFEE URN ATTENDANT) WBC 6.69 3.80 - 9.90 K/cumm Hgb 13.6 11.9 - 15.5 g/dL [facility] Hct 43.7 35.6 - 45.5 % [facility] Plt 198 150 - 400 K/cumm [facility] MPV 10.1 9.1 - 12.3 fL [facility] RBC 4.83 3.90 - 5.20 M/cumm [facility] MCV 90.5 81.3 - 96.4 fL [facility] MCH 28.2 27.1 - 33.3 pg [facility] MCHC 31.1(L) 32.3 - 35.7 g/dL [facility] RDW CV 13.1 11.1 - 14.9 % [facility] RDW SD 43.8 35.7 - 48.1 fL [facility] NRBC abs 0.00 0.00 - 0.01 K/cumm [facility] Blood 01/21/2025 11:4 3 AM COFFEE URN ATTENDANT 01/21/2025 2:39 PM COFFEE URN ATTENDANT us Elena Tang ELECTRICAL TECHNICIAN INSTRUCTOR LAB BLOOD ORDERABLES Final Resul t Performing Organization Address [facility] de Phone Number [address] [place] [address] * Vitamin D 25 hydroxy (01/21/2025 11:43 AM COFFEE URN ATTENDANT) Pathologist [facility] Vitamin D 25-OH 39.0 30.0 - 80.0 ng/mL Blood 01/21/2025 11:4 3 AM COFFEE URN ATTENDANT 01/21/2025 2:38 PM COFFEE URN ATTENDANT us Elena Tang ELECTRICAL TECHNICIAN INSTRUCTOR LAB BLOOD ORDERABLES Final Resul t Performing Organization Address [facility] de Phone Number [address] [employer] [place] [address] * Iron level (01/21/2025 11:43 AM COFFEE URN ATTENDANT) Pathologist [facility] Iron 87 35 - 145 mcg/dL Blood 01/21/2025 11:4 3 AM COFFEE URN ATTENDANT 01/21/2025 2:38 PM COFFEE URN ATTENDANT us Elena Tang ELECTRICAL TECHNICIAN INSTRUCTOR LAB BLOOD ORDERABLES Final Resul t Performing Organization Address City/[facility] de Phone Number [address] [employer] [place] [address] * (ABNORMAL) Ferritin (01/21/2025 11:43 AM COFFEE URN ATTENDANT) Ferritin 160(H) 13 - 150 ng/mL Blood 01/21/2025 11:4 3 AM COFFEE URN ATTENDANT 01/21/2025 2:38 PM COFFEE URN ATTENDANT us Elena Tang ELECTRICAL TECHNICIAN INSTRUCTOR LAB BLOOD ORDERABLES Final Resul t Performing Organization Address [facility] de Phone Number [address] [employer] [place] [address] * Vitamin B12 (01/21/2025 11:43 AM COFFEE URN ATTENDANT) Vitamin B12 531 230 - 1,250 pg/mL Blood 01/21/2025 11:4 3 AM COFFEE URN ATTENDANT 01/21/2025 2:38 PM COFFEE URN ATTENDANT us Elena Tang ELECTRICAL TECHNICIAN INSTRUCTOR LAB BLOOD ORDERABLES Final Resul t Performing Organization Address [facility] de Phone Number [address] [employer] [place] [address] * Lipid panel (01/21/2025 11:43 AM COFFEE URN ATTENDANT) Cholesterol 192 30 - 199 mg/dL Comment: Interpretive Data Ages < or = 19 years Acceptable: <170 mg/dL Borderline high: 170-199 mg/dL High: >or= 200 mg/dL Ages > or = 20 years Desirable: <200 mg/dL Borderline high: 200-239 mg/dL High: >or= 240 mg/dL Literature References: 1. Expert Panel on Integrated Guidelines for Cardiovascular Health and Risk Reduction in Children and Adolescents. Pediatrics 2011;128:S213 2. NCEP Expert Panel. Circulation 2004;110:227 Current Interpretive Data was last revised on 2017. Triglycerides 65 <=149 mg/dL [facility] Comment: Interpretive Data Ages < or = 9 years Acceptable: <75 mg/dL Borderline high: 75-99 mg/dL High: >or= 100 mg/dL Ages 10 to 20 years Acceptable: <90 mg/dL Borderline high: 90-129 mg/dL High: >or= 130 mg/dL Ages > or = 20 years Desirable: <150 mg/dL Borderline high: 150-199 mg/dL High: 200-499 mg/dL Very high: >or= 499 mg/dL Literature References: 1. Expert Panel on Integrated Guidelines for Cardiovascular Health and Risk Reduction in Children and Adolescents. Pediatrics 2011;128:S213 2. NCEP Expert Panel. Circulation 2004;110:227 Current Interpretive Data was last revised on 2017. HDL 88 >=40 mg/dL [facility] Comment: Interpretive Data Ages < or = 19 years Acceptable: >45 mg/dL Borderline low: 40-45 mg/dL Low: <40 mg/dL Ages > or = 20 years Desirable: >or= 60 mg/dL Low: <40 mg/dL Literature References: 1. Expert Panel on Integrated Guidelines for Cardiovascular Health and Risk Reduction in Children and Adolescents. Pediatrics 2011;128:S213 2. NCEP Expert Panel. Circulation 2004;110:227 Current Interpretive Data was last revised on 2017. LDL, calculated 92 <=129 mg/dL [facility] Comment: Interpretive Data Ages < or = 19 years Acceptable: <110 mg/dL Borderline high: 110-129 mg/dL High: >or= 130 mg/dL Ages > or = 20 years Optimal: <100 mg/dL Near optimal: 100-129 mg/dL Borderline high: 130-159 mg/dL High: >160 mg/dL Calculated using the Jr LDL-C estimating equation. This equation was implemented on 2023. Prior to this date LDL-C was estimated using the Friedewald equation. Literature References: 1. Expert Panel on Integrated Guidelines for Cardiovascular Health and Risk Reduction in Children and Adolescents. Pediatrics 2011;128:S213 2. NCEP Expert Panel. Circulation 2004;110:227 3. Jr Toney. MERT Cardiol. 2020 June 28;5(5):540-548. doi: [email or web address] Current Interpretive Data was last revised on 2023. Non-HDL Cholesterol 104 mg/dL [facility] Comment: Interpretive Data Ages < or = 19 years Acceptable: <120 mg/dL Borderline high: 120-144 mg/dL High: >145 mg/dL Ages > or = 20 years When triglycerides are >200 mg/dL, Non-HDL cholesterol is a secondary target of therapy with treatment goals that are 30 mg/dL greater than the LDL cholesterol target. Literature References: 1. Expert Panel on Integrated Guidelines for Cardiovascular Health and Risk Reduction in Children and Adolescents. Pediatrics 2011;128:S213 2. NCEP Expert Panel. Circulation 2004;110:227 Current Interpretive Data was last revised on 2017. Chol/HDL ratio 2 [facility] Blood 01/21/2025 11:4 3 AM COFFEE URN ATTENDANT 01/21/2025 2:38 PM COFFEE URN ATTENDANT us Elena Tang NP LAB BLOOD ORDERABLES Final Resul t [facility] [address] [facility] [place] [address] * Comprehensive metabolic panel (01/21/2025 11:43 AM COFFEE URN ATTENDANT) Sodium 138 135 - 145 mmol/L Potassium, pl 4.3 3.3 - 4.9 mmol/L [facility] Chloride 100 97 - 110 mmol/L [facility] CO2 27 22 - 32 mmol/L [facility] Anion gap 11 2 - 15 mmol/L [facility] BUN 16 6 - 25 mg/dL [facility] Creatinine 0.69 0.60 - 1.10 mg/dL [facility] Glucose 97 70 - 199 mg/dL [facility] Comment: Interpretive Data Fasting glucose >/= 126 mg/dl is diagnostic for diabetes. Fasting is defined as no caloric intake for at least 8 hours. Fasting glucose between 100 mg/dl to 125 mg/dl is diagnostic of prediabetes. In a patient with classic symptoms of hyperglycemia or hyperglycemic crisis, a random glucose >/= 200 mg/dl is diagnostic for diabetes. In the absence of unequivocal hyperglycemia, results should be confirmed by repeat testing. The classification and Diagnosis of Diabetes Diabetes Care 2021; 46: S19-S40. Current interpretive data was last revised 2022. Calcium 9.7 8.5 - 10.3 mg/dL [facility] Bilirubin, total 0.5 0.1 - 1.2 mg/dL [facility] Protein, pl 6.7 6.5 - 8.5 g/dL [facility] Albumin 4.3 3.5 - 5.0 g/dL [facility] Alk phos 87 40 - 130 Units/L [facility] ALT 15 7 - 45 Units/L [facility] AST 20 10 - 45 Units/L [facility] Blood 01/21/2025 11:4 3 AM COFFEE URN ATTENDANT 01/21/2025 2:38 PM COFFEE URN ATTENDANT us Elena Tang ELECTRICAL TECHNICIAN INSTRUCTOR LAB BLOOD ORDERABLES Final Resul t [facility] [address] [facility] [place] [address] * XR Chest PA Lateral 2 Views (01/21/2025 11:41 AM COFFEE URN ATTENDANT) Anatomical Region Laterality Modality Body, Chest N/A Computed Radiogr aphy 01/21/2025 12:3 0 PM COFFEE URN ATTENDANT Impressions 01/21/2025 12:30 PM COFFEE URN ATTENDANT 1. Interval decreased patchy left infrahilar airspace opacities with mild residual airspace opacities remaining. Electronically signed by: Hang Antunez D.O. Narrative 01/21/2025 12:30 PM COFFEE URN ATTENDANT STUDY DESCRIPTION: XR CHEST PA LATERAL 2 VIEWS ORDERING HEALTHCARE PROVIDER: ELENA TANG CLINICAL INDICATIONS: 6 week pneumonia follow up. COMPARISON: 11/09/2024 TECHNIQUE: Two-view chest. FINDINGS: The heart, mediastinum, and pulmonary vasculature are grossly stable. Left-sided cardiac device is noted. There is no definite evidence of a pneumothorax. There is no definite evidence of a pleural effusion. There are interval decreased patchy left infrahilar airspace opacities with mild residual airspace opacities remaining. There is mild biapical pleural thickening and scarring. The lungs are mildly hyperinflated. The osseous structures are acutely grossly stable. Procedure Note Hang Antunez DO - 01/21/2025 STUDY DESCRIPTION: XR CHEST PA LATERAL 2 VIEWS ORDERING HEALTHCARE PROVIDER: ELENA TANG CLINICAL INDICATIONS: 6 week pneumonia follow up. COMPARISON: 11/09/2024 TECHNIQUE: Two-view chest. FINDINGS: The heart, mediastinum, and pulmonary vasculature are grossly stable. Left-sided cardiac device is noted. There is no definite evidence of a pneumothorax. There is no definite evidence of a pleural effusion. There are interval decreased patchy left infrahilar airspace opacities with mild residual airspace opacities remaining. There is mild biapical pleural thickening and scarring. The lungs are mildly hyperinflated. The osseous structures are acutely grossly stable. IMPRESSION: 1. Interval decreased patchy left infrahilar airspace opacities with mild residual airspace opacities remaining. Electronically signed by: Hang Antunez D.O. Elena Tang NP IMG XR PROCEDURES Final Result * Vaginitis panel Vaginal (01/21/2025 11:27 AM COFFEE URN ATTENDANT) Bacterial Vaginosis Not Detected Not Detected Comment:A negative result do es not preclude a possible infection. Results should be considered in conjunction with clinical presentation to determine the disease status. Shea group Not Detected Not Detected [facility] Shea glabrata/ krusei Not Detected Not Detected [facility] Trichomonas DNA Not Detected Not Detected [facility] Vaginal 01/21/2025 11:2 7 AM COFFEE URN ATTENDANT 01/21/2025 6:03 PM COFFEE URN ATTENDANT Narrative [facility] - 01/21/2025 7:21 PM COFFEE URN ATTENDANT The Cepheid Xpert Xpress MVP test detects DNA targets from anaerobic bacteria associated with bacterial vaginosis, Shea species associated with vulvovaginal candidiasis, and Trichomonas vaginalis by nucleic acid amplification testing (NAAT). Results should be interpreted in conjunction with other clinical data. This test cannot be used to assess therapeutic success or failure because target nucleic acids may persist following antimicrobial therapy. This test has been cleared by the [place] Food and Drug Administration to aid in the diagnosis of vaginal infections in symptomatic women ages 14 and older. The performance characteristics of this test have been verified by the [facility]. Elena Tang NP LAB MICROBIOLOGY - GENERAL ORDER ELOISA Final Result [facility] [address] [facility] [place] [address] * (ABNORMAL) Urinalysis reflex to microscopic and culture Urine, bladder (12/21/2024 1:48 PM CDT) Color, ur Yellow Yellow Comment:Testing performed by : [address] [address] Clarity, ur Cloudy(A) Clear [facility] Comment:Testing performed by : [address] [address] Specific gravity, ur 1.010 1.003 - 1.030 [facility] Comment:Testing performed by : [address] [address] pH, urine 5.0 [facility] Comment: Interpretive Data U rine pH is affected by diet, medications, systemic acid-base disturbances, and renal tubular function. pH may affect urinary stone formation. For example, urine pH below 6.0 may help reduce the tendency for calcium phosphate stones and pH greater than 6.0 may reduce the tendency for uric acid stone formation. Source: [facility] [employer] Current Interpretive Data was last revised on 2017 Testing performed by: [address] [address] Protein, ur ql Negative Negative [facility] Comment:Testing performed by : [address] [address] Glucose, ur ql Negative Negative [facility] Comment:Testing performed by : [address] [address] Ketones, ur Negative Negative [facility] Comment:Testing performed by : [address] [address] Bilirubin, ur Negative Negative [facility] Comment:Testing performed by : [address] [address] Blood, ur Trace(A) Negative [facility] Comment:Testing performed by : [address] [address] Urobilinogen, ur <2.0 <2.0 mg/dL [facility] Comment:Testing performed by : [address] [place]., [address] Nitrite, ur Negative Negative [facility] Comment:Testing performed by : [address] [address] Leukocyte esterase, ur 4+(A) Negative [facility] Comment:Testing performed by : [address] [address] UA reflex comment Reflex to microscopic UA will be performed. [facility] Comment:Testing performed by : [address] [address] Urine, bladder 12/21/2024 1: 48 PM CDT 12/21/2024 5:33 PM CDT us Oscar Boggs ELECTRICAL TECHNICIAN INSTRUCTOR LAB MICROBIOLOGY - GENERAL OR DERABLES Final Result [facility] [address] [facility] [place] [address] * (ABNORMAL) Urinalysis, microscopic only (12/21/2024 1:48 PM CDT) WBC, ur >50(A) 0 - 5 /HPF Comment:Testing performed by : [address] [address] RBC, ur 6-10(A) 0 - 2 /HPF [facility] Comment:Testing performed by : [address] [address] Epithelial cells, squamous, ur >50(A) 0 - 5 /HPF [facility] Comment:Testing performed by : [address] [address] Bacteria, ur 3+(A) [facility] Comment:Testing performed by : [address] [address] Culture Reflex Comment Reflex to urine culture will be performed. [facility] Comment:Testing performed by : [address] [address] Urine, bladder 12/21/2024 1: 48 PM CDT 12/21/2024 5:33 PM CDT Oscar Boggs ELECTRICAL TECHNICIAN INSTRUCTOR LAB URINE ORDERABLES Final Re sult [facility] [address] [place] [address] * (ABNORMAL) POCT urinalysis dipstick (12/21/2024 1:48 PM CDT) Color, Urine, POC Yellow Clarity, ur, POC Clear Clear Glucose, ur, POC Negative Negative Bilirubin, ur, POC Negative Negative Ketones, ur, POC Negative Negative Specific Strawberry, POC 1.015 1.003 - 1.030 Blood, ur, POC Trace(A) Negative pH, ur, POC 6.0 5.0 - 8.0 Protein, ur, POC Negative Negative Urobilinogen, urine, POC 0.2 0.2 - 1.0 mg/dL Nitrite, ur, POC Negative Negative Leukocytes, ur, POC 3+(A) Negative Lot Number 0 Urine 12/21/2024 1:48 PM CDT Oscar Boggs ELECTRICAL TECHNICIAN INSTRUCTOR POINT OF CARE TEST ORDERABLES Final Result * Urine culture Urine, bladder (12/21/2024 1:48 PM CDT) Report Final Report: Less than 100,000 colonies/mL (clinically insignificant growth based on current clinical standards) Comment:Testing performed by : [facility], [address] [facility] [place] [address] Organism (CLINICALLY INSIGNIFICANT GROWTH TONA Urine, bladder 12/21/2024 1: 48 PM CDT 12/21/2024 7:25 PM CDT Narrative TONA - 12/23/2024 7:10 AM CDT Urine culture reflexed based upon urinalysis results. Testing performed by [facility] Microbiology Laboratory ([phone]) Oscar Boggs NP LAB MICROBIOLOGY - GENERAL OR DERABLES Final Result [facility] [address] Department [place] [address] * (ABNORMAL) POCT urinalysis dipstick (12/14/2024 10:09 AM CDT) Color, Urine, POC Yellow Clarity, ur, POC Cloudy(A) Clear Glucose, ur, POC 100.(A) Negative Bilirubin, ur, POC Negative Negative Ketones, ur, POC Negative Negative Specific Strawberry, POC 1.005 1.003 - 1.030 Blood, ur, POC Moderate(A) Negative pH, ur, POC 5.5 5.0 - 8.0 Protein, ur, POC Negative Negative Urobilinogen, urine, POC 0.2 0.2 - 1.0 mg/dL Nitrite, ur, POC Negative Negative Leukocytes, ur, POC Trace(A) Negative Lot Number [id number] Urine 12/14/2024 10:0 9 AM CDT Jose Alexander NP POINT OF CARE TEST ORDERABLES F inal Result * Urine culture Urine, clean voided (12/14/2024 9:30 AM CDT) Report Final Report: Less than 100,000 colonies/mL (clinically insignificant growth based on current clinical standards) Comment:Testing performed by : [facility], [address] [facility] [place]., [address] Organism (CLINICALLY INSIGNIFICANT GROWTH TONA SANCHEZ Urine, clean voided 12/14/2024 9:30 AM CDT 12/14/2024 6:57 PM CDT Narrative TONA SANCHEZ - 12/16/2024 6:19 AM CDT Testing performed by [facility] ([phone]) Jose Alexander NP LAB MICROBIOLOGY - GENERAL LYNDSAY ROSS Final Result TONA SANCHEZ [address] Department [place] [address] * DEVICE CHECK - IN OFFICE (12/12/2024 10:00 AM CDT) Anatomical Region Laterality Modality Other Narrative 12/12/2024 4:04 PM CDT Biotronik Edora Dual Pacemaker. Dx; Symptomatic Bradycardia, CHB. DOI 08/11/2022-Kathy. [employer]ronik remote monitoring. Supervising MD: Dr Vázquez. Left pectoral incision well approximated. No redness, drainage, or edema noted. Office DDD Pacemaker evaluation demonstrated appropriate device function. Appropriate lead measurements noted. Battery function-Ok, 7.0 years 2 months remaining battery longevity to ANGELO. Presenting rhythm-APVP. Underlying rhythm-CHB, no v-escape noted @ DDI 30 bpm. AP-76%, STAFF ATTORNEY-99%. 1086 mode switch episodes recorded, iegm's AT/AF. AT/AF Brave 1%. No Ventricular high rate episodes noted. 16-PMT episodes noted. Medications; Eliquis, ASA 81 mg. PVARP increased to 325 ms (was 300 ms). See scanned report. Office pacemaker f/u 01/15/2026. [employer]ik remote f/u 03/19/2025. Georgina Okeefe, RN us Naila Chavez MD CV CARDIAC SERVICES PROCEDU RES Final Result * eGFR (12/11/2024 11:43 AM CDT) eGFR 86 >=60 mL/min/1. 73 m2 Comment: Interpretive Data Reference Interval Normal >/= 90 mL/min/1.73m2 Mildly decreased* 60 - 89 mL/min/1.73m2 Mildly to moderately decreased 45 - 59 mL/min/1.73m2 Moderately to severely decreased 30 - 44 mL/min/1.73m2 Severely decreased 15 - 29 mL/min/1.73m2 Kidney Failure < 15 mL/min/1.73m2 *Relative to young adult level Estimated glomerular filtration rate is determined by the 2020 CKD-EPI equation recommended by the National Kidney Foundation (A Unifying Approach to GFR Estimation: Recommendations of the NKF-ASK Task Force on Reassessing the Inclusion of Race in Diagnosing Kidney Disease, JASN 202). The CKD-EPI equation should not be used for patients with unstable renal function and has not been validated in children and those over 70. Current interpretive data was last reviewed 2020. Blood 12/11/2024 11:4 3 AM CDT 12/11/2024 2:28 PM CDT Elena Tang NP LAB BLOOD ORDERABLES Final Resul t [facility] [address] [facility] [place] [address] * Differential, auto (12/11/2024 11:43 AM CDT) Neutrophil abs 4.45 1.50 - 6.50 K/cumm Imm gran abs 0.01 0.00 - 0.10 K/cumm [facility] Lymphocyte abs 1.15 0.80 - 3.30 K/cumm [facility] Monocyte abs 0.58 0.20 - 0.80 K/cumm [facility] Eosinophil abs 0.19 0.00 - 0.50 K/cumm [facility] Basophil abs 0.04 0.00 - 0.10 K/cumm [facility] Neutrophil pct 69.3 % [facility] Comment: Interpretive Data Percent cell count reference ranges are not reported, since discordance with absolute values may lead to misinterpretation of CBC data. Current Interpretive Data was last revised on 2017. Imm gran pct 0.2 % [facility] Comment: Interpretive Data Percent cell count reference ranges are not reported, since discordance with absolute values may lead to misinterpretation of CBC data. Current Interpretive Data was last revised on 2017. Lymphocyte pct 17.9 % [facility] Comment: Interpretive Data Percent cell count reference ranges are not reported, since discordance with absolute values may lead to misinterpretation of CBC data. Current Interpretive Data was last revised on 2017. Monocyte pct 9.0 % [facility] Comment: Interpretive Data Percent cell count reference ranges are not reported, since discordance with absolute values may lead to misinterpretation of CBC data. Current Interpretive Data was last revised on 2017. Eosinophil pct 3.0 % [facility] Comment: Interpretive Data Percent cell count reference ranges are not reported, since discordance with absolute values may lead to misinterpretation of CBC data. Current Interpretive Data was last revised on 2017. Basophil pct 0.6 % [facility] Comment: Interpretive Data Percent cell count reference ranges are not reported, since discordance with absolute values may lead to misinterpretation of CBC data. Current Interpretive Data was last revised on 2017. Blood 12/11/2024 11:4 3 AM CDT 12/11/2024 2:28 PM CDT us Elena Tang NP LAB BLOOD ORDERABLES Final Resul t Performing Organization Address [facility] de Phone Number [address] [employer] [place], [place] [id number] * (ABNORMAL) CBC with auto differential (12/11/2024 11:43 AM CDT) WBC 6.42 3.80 - 9.90 K/cumm Hgb 13.3 11.9 - 15.5 g/dL [facility] Hct 42.4 35.6 - 45.5 % [facility] Plt 207 150 - 400 K/cumm [facility] MPV 9.8 9.1 - 12.3 fL [facility] RBC 4.65 3.90 - 5.20 M/cumm [facility] MCV 91.2 81.3 - 96.4 fL [facility] MCH 28.6 27.1 - 33.3 pg [facility] MCHC 31.4(L) 32.3 - 35.7 g/dL [facility] RDW CV 13.2 11.1 - 14.9 % [facility] RDW SD 44.2 35.7 - 48.1 fL [facility] NRBC abs 0.00 0.00 - 0.01 K/cumm [facility] Blood 12/11/2024 11:4 3 AM CDT 12/11/2024 2:28 PM CDT us Elena Tang ELECTRICAL TECHNICIAN INSTRUCTOR LAB BLOOD ORDERABLES Final Resul t Performing Organization Address [facility] Co de Phone Number [place] [address] [facility] [place] [address] * Comprehensive metabolic panel (12/11/2024 11:43 AM CDT) Sodium 137 135 - 145 mmol/L Potassium, pl 4.6 3.3 - 4.9 mmol/L [facility] Chloride 101 97 - 110 mmol/L [facility] CO2 29 22 - 32 mmol/L [facility] Anion gap 7 2 - 15 mmol/L [facility] BUN 17 6 - 25 mg/dL [facility] Creatinine 0.75 0.60 - 1.10 mg/dL [facility] Glucose 106 70 - 199 mg/dL [facility] Comment: Interpretive Data Fasting glucose >/= 126 mg/dl is diagnostic for diabetes. Fasting is defined as no caloric intake for at least 8 hours. Fasting glucose between 100 mg/dl to 125 mg/dl is diagnostic of prediabetes. In a patient with classic symptoms of hyperglycemia or hyperglycemic crisis, a random glucose >/= 200 mg/dl is diagnostic for diabetes. In the absence of unequivocal hyperglycemia, results should be confirmed by repeat testing. The classification and Diagnosis of Diabetes Diabetes Care 2021; 46: S19-S40. Current interpretive data was last revised 2022. Calcium 9.9 8.5 - 10.3 mg/dL [facility] Bilirubin, total 0.3 0.1 - 1.2 mg/dL [facility] Protein, pl 6.6 6.5 - 8.5 g/dL [facility] Albumin 4.1 3.5 - 5.0 g/dL [facility] Alk phos 86 40 - 130 Units/L [facility] ALT 14 7 - 45 Units/L [facility] AST 22 10 - 45 Units/L [facility] Blood 12/11/2024 11:4 3 AM CDT 12/11/2024 2:28 PM CDT Elena Tang NP LAB BLOOD ORDERABLES Final Resul t [facility] [address] [facility] [place] [address] * Urine culture Urine, clean voided (12/07/2024 10:00 AM CDT) Report Final Report: Less than 100,000 colonies/mL (clinically insignificant growth based on current clinical standards) Comment:Testing performed by : [facility], [address] [place]., [address] Organism (CLINICALLY INSIGNIFICANT GROWTH TONA Urine, clean voided 12/07/2024 10:00 AM CDT 12/07/2024 8:22 PM CDT Narrative TONA - 12/08/2024 9:05 PM CDT Testing performed by [facility] Microbiology Laboratory ([phone]) Jose Alexander NP LAB MICROBIOLOGY - GENERAL [facility] Final Result [facility] [address] Department [place] [address] * (ABNORMAL) POCT urinalysis dipstick (12/07/2024 9:41 AM CDT) Color, Urine, POC Yellow Clarity, ur, POC Cloudy(A) Clear Glucose, ur, POC Negative Negative Bilirubin, ur, POC Negative Negative Ketones, ur, POC Trace(A) Negative Specific Strawberry, POC 1.015 1.003 - 1.030 Blood, ur, POC Large(A) Negative pH, ur, POC 5.5 5.0 - 8.0 Protein, ur, POC 30.(A) Negative Urobilinogen, urine, POC 0.2 0.2 - 1.0 mg/dL Nitrite, ur, POC Negative Negative Leukocytes, ur, POC Moderate(A) Negative Lot Number [id number] Urine 12/07/2024 9:41 AM CDT Jose Alexander NP POINT OF CARE TEST ORDERABLES F inal Result * HM PAP SMEAR (12/04/2024 3:28 PM CDT) Historical Provider HEALTH MAINTENANCE Final Result * HM PAP SMEAR (12/04/2024 9:58 AM CDT) Historical Provider HEALTH MAINTENANCE Final Result * POCT urinalysis dipstick (11/26/2024 2:52 PM CDT) [facility] Glucose, ur, POC Negative Negative Bilirubin, ur, POC Negative Negative Ketones, ur, POC Negative Negative Specific Strawberry, POC 1.025 1.003 - 1.030 Blood, ur, POC Negative Negative pH, ur, POC 6.0 5.0 - 8.0 Protein, ur, POC Negative Negative Urobilinogen, urine, POC 0.2 0.2 - 1.0 mg/dL Nitrite, ur, POC Negative Negative Leukocytes, ur, POC Negative Negative Lot Number [id number] Urine 11/26/2024 2:52 PM CDT Elena Tang NP POINT OF CARE TEST ORDERABLES Fi nal Result * Urine culture Urine, clean voided (11/26/2024 2:49 PM CDT) [facility] Report Final Report: Less than 100,000 colonies/mL (clinically insignificant growth based on current clinical standards) Comment:Testing performed by : [facility], [address] [facility] [place]., [address] Organism (CLINICALLY INSIGNIFICANT GROWTH TONA Urine, clean voided 11/26/2024 2:49 PM CDT 11/26/2024 9:04 PM CDT Narrative [facility] - 11/28/2024 7:57 AM CDT Testing performed by [facility] ([phone]) us Elena Tang NP LAB MICROBIOLOGY - GENERAL ORDER ELOISA Final Result [facility] [address] [facility] [place] [address] * Stool DNA - Cologuard (06/07/2024 8:01 AM CDT) [facility] Stool DNA - Cologuard Negative Negative [employer] (CLIA #:[id number]) Comment: NEGATIVE TEST RESULT. A negative Cologuard [...] screened with both Cologuard and colonoscopy. (Quincy Carias et al, N Engl J Med 2014;370(14):2128-2483) The normal value (reference range) for this assay is negative. COLOGUARD RE-SCREENING RECOMMENDATION: Periodic colorectal cancer screening is an important part of preventive healthcare for asymptomatic individuals at average risk for colorectal cancer. Following a negative Cologuard result, the [place] Cancer Society and U.S. Multi-Society Task Force screening guidelines recommend a Cologuard re-screening interval of 3 years. References: [place] Cancer Society Guideline for Colorectal Cancer Screening: https://www.cancer.org/cancer/tccbp-gcjlav-pibtjx/sxalwlhpn-xkfmhidkw-ertyuoe/ac s-rec ommendations.html.; Andrade MAYO, Yazan POTTS, Yoly WestK, Colorectal Cancer Screening: Recommendations for Physicians and Patients from the U.S. Multi-Society Task Force on Colorectal Cancer Screening , Am J Gastroenterology 2017; 112:5946-2897. TEST DESCRIPTION: Composite algorithmic analysis of stool [...] screened with both Cologuard and colonoscopy. (Quincy Carias et al, N Engl J Med 2014;370(14):7290-3179.) Cologuard may produce a false negative or false positive result (no colorectal cancer or precancerous polyp present at colonoscopy follow up). A negative Cologuard test result does not guarantee the absence of CRC or advanced adenoma (pre-cancer). The current Cologuard screening interval is every 3 years. ([place] Cancer Society and U.S. Multi-Society Task Force). Cologuard performance data in a 10,000 patient pivotal study using colonoscopy as the reference method can be accessed at the following location: www.[employer]/results. Additional description of the Cologuard test process, warnings and precautions can be found at www.[employer].Network Chemistry. Stool 06/07/2024 8:01 AM CDT 06/09/2024 12:31 PM CDT Elena Tang NP LAB BODY FLUIDS AND STOOLS ORDER ELOISA Final Result [employer] (CLIA #:[id number]) [address] [place] [address] * DEXA SCAN (10/21/2023 2:50 PM CDT) us Jesse Franklin MD HEALTH MAINTENANCE Final Result [...] 8:17 AM CDT Performed at: 01 - [facility] [id number] Rocket Assembly Operator: Devonte Castañeda PhD, Phone: [phone] Elena Tang NP LAB MICROBIOLOGY - GENERAL ORDER ELOISA Final Result [facility] - 01 from Last 3 Months or Most Recently Relevant to Health Maintenance Insurance AET[employer] MEDICARE [facility]LY [facility] MEDICARE AETNA MEDICARE Care Teams Computer Graphics Illustrator Relationship Specialty Start Date End Date Elena Tang ELECTRICAL TECHNICIAN INSTRUCTOR [address] [facility] [address] [place] [address] PCP - General Family Medicine 09/15/23 Rosmery Cardoso MD [address] [place] [address] Consulting Physician General Surgery 09/15/23 Thomas Gonsales MD [address] [place] [address] Consulting Physician Interventional Cardiology 09/15/23 Jesse Monterroso MD [address] [facility] [[email or web address]] [address] [place] [address] Referring Physician Obstetrics and Gynecology 09/15/23
--- OUTSIDE RECORDS SUMMARY | 2025-02-21 13:45 | XMS_ITS | Encounter Summary ---
Author Organization [facility] Address 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
--- OUTSIDE RECORDS SUMMARY | 2025-02-21 13:45 | XMS_ITS | Encounter Summary ---
Author Organization [facility] Address [address] [place] [address] Care Team Providers Care Plastics Fabricator Or Welder Name Role Phone Ruddy Hobson MD Primary Care Provider [phone] Encounter Details Date Type Department Care Team (Late st Contact Info) Description 09/27/2008 Outpatient Historical [facility] Edna Lamb MD [address] [place] [address] [place] [phone] Malignant Neoplasm of Breast (Female), Unspecified Site (CMS/HCC) Social History Tobacco Use Types Packs/Day Years Used Date Smoking Tobacco: Former Cigarettes 0 Q uit: 10/11/2005 Alcohol Use Standard Drinks/Week Comments Yes 0 (1 standard drink = 0.6 oz pur e alcohol) moderate Comments No Sex and Gender Information Value Date Recorded Sex Assigned at Not on file 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 Ewbb images are available on the hospital PACS [...] Procedure Note Robin Schulz, DO - 09/27/2008 [facility] [address] [place], [place] [address] Admit Date: 09/27/2008 JANET MCKINNON Sex: F Admit Prov: EDNA LAMB Date: 1955 Primary Care Prov: CMRN: [id number] [id number] IM[facility]ING SERVICES Ordering Prov: N/A Interpretation WHOLE [...] Electronically signed by: ROBIN SCHULZ 09/27/2008 11:22 us Edna Lamb MD PE ORDERABLES Final Resul t documented in this encounter Visit Diagnoses Diagnosis Malignant neoplasm of breast (female), unspecified site documented in this encounter Care Teams Plastics Fabricator Or Welder Relationship Specialty Start Date End Date Ruddy Hobson MD PCP - General Family Practice 02/09/19 documented as of this encounter
--- OUTSIDE RECORDS SUMMARY | 2025-02-21 13:45 | XMS_ITS | Encounter Summary ---
Author Organization [facility] Address 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
--- OUTSIDE RECORDS SUMMARY | 2025-02-21 13:45 | XMS_ITS | Encounter Summary ---
Author Organization [facility] Address [address] [place] [address] Care Team Providers Care Recovery Room Nurse Name Role Phone Ruddy Hobson MD Primary Care Provider [phone] Encounter Details Date Type Department Care Team (Late st Contact Info) Description 06/19/2008 Outpatient Historical [facility] Edna Lamb MD [address] [place] [address] [place] [phone] Malignant Neoplasm of Breast (Female), Unspecified Site (CMS/HCC) Social History Tobacco Use Types Packs/Day Years Used Date Smoking Tobacco: Never Assessed Comments Unknown Sex and Gender Information Value Date Recorded Sex Assigned at Not on file 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 [place], [place] [address] Admit Date: 06/19/2008 JANET MCKINNON Sex: F Admit Prov: EDNA LAMB Date: 1955 Primary Care Prov: CMRN: [id number] Room: [facility] EM[facility]ENC[facility] SSN: [id number] IMAGING SERVICES Ordering Prov: N/A Accession Number: [id number] Addendum Outside chest x-ray from [facility] [...] [facility] Procedure Note Kevin Kay - 07/09/2008 [address] [place], [place] [address] Admit Date: 06/19/2008 JANET MCKINNON Sex: F Admit Prov: EDNA LAMB Date: 1955 Primary Care Prov: CMRN: [id number] Room: [facility] SSN: [id number] IMAGING SERVICES Ordering Prov: N/A Addendum Outside chest x-ray from [facility] dated 09/26/2007 was submitted for comparison. The areaof focal pleural thickening withinthe right upper hemithorax is not well demonstrated on the chest x-ray.The 3 mm pulmonary nodule within the right lower lobe [facility] is not demonstrated by plain radiographs. [...] CREATININE POC 0.9 0.6 - 1.3 mg/dL [facility] Comment: The calculation for the estimated GFR on the i-STAT POC instrument has been changed to correspond to the IDMS-traceable MDRD Study, upon the recommendation of the french weaver of the i-STAT instrument. The change was effective in our laboratory 02/05/2008. The impact of this change to the estimated GFR is minimal. This calculation is used by the main laboratory methodology also. GFR >60 >=60 mL/min/1.7 sq meter [facility] GFR, >60 >=60 mL/min/1.7 sq meter [facility] Capillary blood specimen (specimen) 06/19/2008 8:18 AM CDT 06/19/2008 8:18 AM CDT Edna Lamb MD POINT OF CARE TESTING Edite d INTERFACE SYSTEM Refer to clinic/hospital department [facility] CLIA# [id number] [address] [place] [address] documented in this encounter Visit Diagnoses Diagnosis Malignant neoplasm of breast (female), unspecified site documented in this encounter Care Teams Recovery Room Nurse Relationship Specialty Start Date End Date Ruddy Hobson MD PCP - General Family Practice 02/09/19 documented as of this encounter
--- OUTSIDE RECORDS SUMMARY | 2025-02-21 13:45 | XMS_ITS | Encounter Summary ---
Author Organization [facility] Address 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
--- OUTSIDE RECORDS SUMMARY | 2025-02-21 13:45 | XMS_ITS | Data Portability ---
Author Organization [facility] [employer], Main Office Address [address] [place] [address] Assessment No assessment recorded. Plan of Treatment Reminders Order Date Submit Date Provider Last Modified By Organization Details Last Modified Time Details Appointments None recorded. Lab lipid panel, serum 2022 023 [facility], [address] [place] [address], [address], 16:12:09 CMP, serum or plasma 2022 023 [facility], [address] [place] [address], [address], 16:12:07 TSH, ultra-sensi tive, serum 2022 023 [facility], [address] [place] [address], [place], [address], 3 16:12:11 rf (rheumatoid factor), serum 2022 023 [facility], [address] [place] [address], [place], [address], 3 16:12:10 C reactive protein, QN, serum or plasma 2022 023 [facility], [address] [place] [address], [place], [address], 3 16:12:14 erythrocyte sedimentati on rate by westergren method 2022 023 [facility], [address] [place] [address], [place], [address], 3 16:12:13 CBC w/ auto diff 2022 023 [facility], [address] [facility], [facility], [place], [address], 3 16:12:06 ELADIO (antinuclea r antibodies) screen, serum 2022 023 [facility], [address] [facility], [facility], [place], [address], 3 16:12:12 Referral None recorded. Procedures None recorded. Surgeries None recorded. Imaging XR, ribs, unilateral, w/ PA chest - breast cancer survivor 2007, right lower rib cage *Please call pt to schedule* 2022 023 [facility], [address], [facility], [place], [address], 17:18:33 US, gallbladder 2022 023 [facility], 20[address], [facility], [place], [address], 3 10:11:12 Medication Orders None recorded. Patient TargetsNo targets recorded. Patient InstructionsNo instructions recorded. Reason for Referral None Reported. Results Created Date Observation Date Name Description Value Unit Range Abnormal Flag Note LastModifiedBy Organization Detail LastModifiedTime 11/11/19 21 11/10/2020 urina lysis , dipst ick Leukocytes (reference range: negative starr/ l) Negati ve Not Available [facility] , [address], [place], [address], 11/10/2020 10:20:59 11/11/19 21 11/10/2020 urina lysis , dipst ick Nitrite (reference rage: negative mg/dl) negati ve Not Available _[address] , [address], [place], [address], 11/10/2020 10:20:59 11/11/19 21 11/10/2020 urina lysis , dipst ick Urobilinogen (reference range: 0.2-1 mg/dl) 0.2 Not Available [address] , [address], [place], [address], 11/10/2020 10:20:59 11/11/19 21 11/10/2020 urina lysis , dipst ick Protein (reference range: negative mg/dl) Negati ve Not Available [address] , [address], [place], [address], 11/10/2020 10:20:59 11/11/19 21 11/10/2020 urina lysis , dipst ick pH (reference range: 5-7) 7.0 Not Available [address] , [address], [place], [address], 11/10/2020 10:20:59 11/11/19 21 11/10/2020 urina lysis , dipst ick Blood (reference range: negative Mor/ l) Negati ve Not Available [address] , [address], [place], [address], 11/10/2020 10:20:59 11/11/19 21 11/10/2020 urina lysis , dipst ick Specific [place] (reference range: 1.005-1.030) 1.020 Not Available [address] , [address], [place], [address], 11/10/2020 10:20:59 11/11/19 21 11/10/2020 urina lysis , dipst ick Ketone (reference range: negative mg/dl) Negati ve Not Available [address] , [address], [place], [address], 11/10/2020 10:20:59 11/11/19 21 11/10/2020 urina lysis , dipst ick Bilirubin (reference range: negative mg/dl) Negati ve Not Available [address] , [address], [place], [address], 11/10/2020 10:20:59 11/11/19 21 11/10/2020 urina lysis , dipst ick Glucose (reference range: negative mg/dl) Negati ve Not Available [address] , [address], [place], [address], 11/10/2020 10:20:59 11/11/19 21 11/10/2020 urina lysis , dipst ick Appearance Clear Not Available [address] , [address], [place], [address], 11/10/2020 10:20:59 11/11/19 21 11/10/2020 urina lysis , dipst ick Color Yellow Not Available [address] , [address], [place], [address], 11/10/2020 10:20:59 11/11/19 21 11/11/2020 VITAM IN B12 vitamin B12 765 pg/mL 232-12 45 Not Available [facility] ([facility]) [address] [facility], [place], [address], 11/11/2020 04:07:46 05/01/19 22 05/01/2021 MAGNE SIUM magnesium 1.9 mg/dL 1.6-2. 3 Not Available [facility] ([facility]) [address] [facility], [place], [address], 05/01/2021 03:07:39 05/01/19 22 05/01/2021 CREAT INE KINJOSY E,TOT AL creatine kinase,total 77 U/L 32-182 Not Available [facility] ([facility]) [address] [facility], [place], [address], 05/01/2021 03:07:38 06/03/19 22 06/02/2021 COLOG UARD cologuard result reportable negati ve negati ve NEGAT ALECIA TEST RESUL T. A negat alecia Colog uard resul t indic ates a low likel ihood that a color ectal cance r (CRC) or advan rishi adeno ma (benny omato us polyp s with more advan rishi pre-m align ant featu res) is prese nt. The chan e that a perso n with a [...] of 10,00 0 indiv idual s at [facility] risk for color ectal cance r who were scree hitehs with both Colog uard and colon oscop [...] asymp tomat ic indiv idual s at [facility] risk for color ectal cance r. Follo [...] ng/ac s-rec ommen datio ns.ht ml.; Andrade DK, David gallardo CR, Brown cunningham JK, Color ectal Cance r Scree hayes: Recom menda tions for Physi cians and Patie nts from the U.[place]. Multi -Soci ety Task Force on Color ectal Cance r Scree hayes , Keegan [place] Gastr oente rolog y 2017; 112:1 016-1 030. TEST DESCR IPTIO N: [place] site algor ithmi c angel sis of stool DNA-b iokyleigh perry with hemog lobin immun oassa y. [...] years or older , who are at [facility] for color ectal cance r (CRC) . Colog uard has been appro galilea for use by the [place]. FDA. The perfo rmanc e of Colog uard was estab lishe d in a cross secti onal study of [facility] adult s aged 50-84 . Colog uard perfo rmanc e in patie nts ages 45 to 49 years was estim ated by asad-rosamaria cowart angel sis of near- age group s. [...] cross -sect ional scree hayes study of , 0 indiv idual s at [facility] risk for color ectal cance r [...] d can be acces sed at the follo wing locat ion: www.e xactl abs.c om/re kvng . Addit ional descr iptio n of the Colog uard test proce ss, warni ngs and preca ution s can be found at www.c ologu castro.c om. Not Available [facility] [address], [place], [address], 06/08/2021 18:27:41 12/10/19 23 12/09/2022 CBC WITH DIFFE RENTI AL/PL ATELE T WBC 6.1 x10e3 /uL 3.4-10 .8 Not Available [facility] ([facility]) [address], [place], [address], 12/10/2022 16:12:06 12/10/19 23 12/09/2022 CBC WITH DIFFE RENTI AL/PL ATELE T RBC 4.59 x10e6 /uL 3.77-5 .28 Not Available [facility] ([facility]) [address] [facility], [place], [address], 12/10/2022 16:12:06 12/10/1912/09/2022 CBC WITH DIFFE RENTI AL/PL ATELE T hemoglobin 13.9 g/dL 11.1-1 5.9 Not Available [facility] ([facility]) [address] [place], [address], 12/10/2022 16:12:06 12/10/1912/09/2022 CBC WITH DIFFE RENTI AL/PL ATELE T hematocrit 43.0 % 34.0-4 6.6 Not Available [facility] ([facility]) [address] [facility], [place], [address], 12/10/2022 16:12:06 12/10/1912/09/2022 CBC WITH DIFFE RENTI AL/PL ATELE T MCV 94 fL 79-97 Not Available [facility] ([facility]) [address] [place], [address], 12/10/2022 16:12:06 12/10/1912/09/2022 CBC WITH DIFFE RENTI AL/PL ATELE T MCH 30.3 pg 26.6-3 3.0 Not Available [facility] ([facility]) [address] [place], [address], 12/10/2022 16:12:06 12/10/1912/09/2022 CBC WITH DIFFE RENTI AL/PL ATELE T MCHC 32.3 g/dL 31.5-3 5.7 Not Available [facility] ([facility]) [address] [place], [address], 12/10/2022 16:12:06 12/10/19 23 12/09/2022 CBC WITH DIFFE RENTI AL/PL ATELE T RDW 12.4 % 11.7-1 5.4 Not Available [facility] ([facility]) [address] [facility], [place], [address], 12/10/2022 16:12:06 12/10/19 23 12/09/2022 CBC WITH DIFFE RENTI AL/PL ATELE T platelets 174 x10e3 /uL 150-45 0 Not Available [facility] ([facility]) [address] [facility], [place], [address], 12/10/2022 16:12:06 12/10/1912/09/2022 CBC WITH DIFFE RENTI AL/PL ATELE T neutrophils 77 % not estab. Not Available [facility] ([facility]) [address] [facility], [place], [address], 12/10/2022 16:12:06 12/10/19 23 12/09/2022 CBC WITH DIFFE RENTI AL/PL ATELE T lymphs 13 % not estab. Not Available [facility] ([facility]) [address] [facility], [place], [address], 12/10/2022 16:12:06 12/10/19 23 12/09/2022 CBC WITH DIFFE RENTI AL/PL ATELE T monocytes 8 % not estab. Not Available [facility] ([facility]) [address] [facility], [place], [address], 12/10/2022 16:12:06 12/10/19 23 12/09/2022 CBC WITH DIFFE RENTI AL/PL ATELE T eos 2 % not estab. Not Available [facility] ([facility]) [address] [facility], [place], [address], 12/10/2022 16:12:06 12/10/19 23 12/09/2022 CBC WITH DIFFE RENTI AL/PL ATELE T basos 0 % not estab. Not Available [facility] ([facility]) [address] [place], [address], 12/10/2022 16:12:06 12/10/19 23 12/09/2022 CBC WITH DIFFE RENTI AL/PL ATELE T immature cells AGRICULTURAL ADVISER Not Available [facility] ([facility]) [address] [facility], [place], [address], 12/10/2022 16:12:06 12/10/1912/09/2022 CBC WITH DIFFE RENTI AL/PL ATELE T neutrophils (absolute) 4.7 x10e3 /uL 1.4-7. 0 Not Available [facility] ([facility]) [address] [facility], [place], [address], 12/10/2022 16:12:06 12/10/1912/09/2022 CBC WITH DIFFE RENTI AL/PL ATELE T lymphs (absolute) 0.8 x10e3 /uL 0.7-3. 1 Not Available [facility] ([facility]) [address] [place], [address], 12/10/2022 16:12:06 12/10/19 23 12/09/2022 CBC WITH DIFFE RENTI AL/PL ATELE T monocytes(ab solute) 0.5 x10e3 /uL 0.1-0. 9 Not Available [facility] ([facility]) [address] [place], [address], 12/10/2022 16:12:06 12/10/1912/09/2022 CBC WITH DIFFE RENTI AL/PL ATELE T eos (absolute) 0.1 x10e3 /uL 0.0-0. 4 Not Available [facility] ([facility]) [address] [place], [address], 12/10/2022 16:12:06 12/10/1912/09/2022 CBC WITH DIFFE RENTI AL/PL ATELE T baso (absolute) 0.0 x10e3 /uL 0.0-0. 2 Not Available [facility] ([facility]) [address] [facility], [place], [address], 12/10/2022 16:12:06 12/10/19 23 12/09/2022 CBC WITH DIFFE RENTI AL/PL ATELE T immature granulocytes 0 % not estab. Not Available [facility] ([facility]) [address] [facility], [place], [address], 12/10/2022 16:12:06 12/10/1912/09/2022 CBC WITH DIFFE RENTI AL/PL ATELE T immature grans (abs) 0.0 x10e3 /uL 0.0-0. 1 Not Available [facility] ([facility]) [address] [facility], [place], [address], 12/10/2022 16:12:06 12/10/19 23 12/09/2022 CBC WITH DIFFE RENTI AL/PL ATELE T NRBC AGRICULTURAL ADVISER Not Available [facility] ([facility]) [address] [facility], [place], [address], 12/10/2022 16:12:06 12/10/19 23 12/09/2022 CBC WITH DIFFE RENTI AL/PL ATELE T hematology comments: AGRICULTURAL ADVISER Not Available [facility] ([facility]) [address] [facility], [place], [address], 12/10/2022 16:12:06 12/10/19 23 12/10/2022 COMP. METAB OLIC PANEL (14) glucose 87 mg/dL 70-99 Not Available [facility] ([facility]) [address] [place], [address], 12/10/2022 16:12:07 12/10/19 23 12/10/2022 COMP. METAB OLIC PANEL (14) BUN 10 mg/dL 8-27 Not Available [facility] ([facility]) [address] [facility] [place], [address], 12/10/2022 16:12:07 12/10/19 23 12/10/2022 COMP. METAB OLIC PANEL (14) creatinine 0.67 mg/dL 0.57-1 .00 Not Available [facility] ([facility]) [address] [facility] [place], [address], 12/10/2022 16:12:07 12/10/19 23 12/10/2022 COMP. METAB OLIC PANEL (14) eGFR 95 mL/mi n/1.7 3 >59 Not Available [facility] ([facility]) [address] [facility] [place], [address], 12/10/2022 16:12:07 12/10/19 23 12/10/2022 COMP. METAB OLIC PANEL (14) BUN/creatini ne ratio 15 12-28 Not Available [facility] ([facility]) [address] [facility] [place], [address], 12/10/2022 16:12:07 12/10/19 23 12/10/2022 COMP. METAB OLIC PANEL (14) sodium 134 mmol/ L 134-14 4 Not Available [facility] ([facility]) [address] [facility] [place], [address], 12/10/2022 16:12:07 12/10/19 23 12/10/2022 COMP. METAB OLIC PANEL (14) potassium 4.5 mmol/ L 3.5-5. 2 Not Available [facility] ([facility]) [address] [facility] [place], [address], 12/10/2022 16:12:07 12/10/19 23 12/10/2022 COMP. METAB OLIC PANEL (14) chloride 96 mmol/ L 96-106 Not Available [facility] ([facility]) [address] [facility] [place], [address], 12/10/2022 16:12:07 12/10/19 23 12/10/2022 COMP. METAB OLIC PANEL (14) carbon dioxide, total 23 mmol/ L 20-29 Not Available [facility] ([facility]) [address] [facility], [place], [address], 12/10/2022 16:12:07 12/10/1912/10/2022 COMP. METAB OLIC PANEL (14) calcium 9.4 mg/dL 8.7-10 .3 Not Available [facility] ([facility]) [address] [facility], [place], [address], 12/10/2022 16:12:07 12/10/1912/10/2022 COMP. METAB OLIC PANEL (14) protein, total 6.6 g/dL 6.0-8. 5 Not Available [facility] ([facility]) [address] [facility], [place], [address], 12/10/2022 16:12:07 12/10/1912/10/2022 COMP. METAB OLIC PANEL (14) albumin 4.5 g/dL 3.9-4. 9 Not Available [facility] ([facility]) [address] [facility], [place], [address], 12/10/2022 16:12:07 12/10/1912/10/2022 COMP. METAB OLIC PANEL (14) globulin, total 2.1 g/dL 1.5-4. 5 Not Available [facility] ([facility]) [address] [facility], [place], [address], 12/10/2022 16:12:07 12/10/1912/10/2022 COMP. METAB OLIC PANEL (14) A/G ratio 2.1 1.2-2. 2 Not Available [facility] ([facility]) [address] [facility], [place], [address], 12/10/2022 16:12:07 12/10/1912/10/2022 COMP. METAB OLIC PANEL (14) bilirubin, total 0.6 mg/dL 0.0-1. 2 Not Available [facility] ([facility]) [address] [place], [address], 12/10/2022 16:12:07 12/10/1912/10/2022 COMP. METAB OLIC PANEL (14) alkaline phosphatase 81 IU/L 44-121 Not Available [facility] ([facility]) [address] [facility] [place], [address], 12/10/2022 16:12:07 12/10/1912/10/2022 COMP. METAB OLIC PANEL (14) AST (SGOT) 20 IU/L 0-40 Not Available [facility] ([facility]) [address] [place], [address], 12/10/2022 16:12:07 12/10/1912/10/2022 COMP. METAB OLIC PANEL (14) ALT (SGPT) 15 IU/L 0-32 Not Available [facility] ([facility]) [address] [place], [address], 12/10/2022 16:12:07 12/10/19 23 12/10/2022 LIPID PANEL cholesterol, total 214 mg/dL 100-19 9 above high normal Not Available [facility] ([facility]) [address] [place], [address], 12/10/2022 16:12:09 12/10/1912/10/2022 LIPID PANEL triglyceride s 65 mg/dL 0-149 Not Available [facility] ([facility]) [address] [place], [address], 12/10/2022 16:12:09 12/10/19 23 12/10/2022 LIPID PANEL HDL cholesterol 114 mg/dL >39 Not Available [facility] ([facility]) [address] [facility], [place], [address], 12/10/2022 16:12:09 12/10/1912/10/2022 LIPID PANEL VLDL cholesterol enzo 11 mg/dL 5-40 Not Available [facility] ([facility]) [address] [facility], [place], [address], 12/10/2022 16:12:09 12/10/1912/10/2022 LIPID PANEL LDL chol calc ([facility]) 89 mg/dL 0-99 Not Available [facility] ([facility]) [address] [facility], [place], [address], 12/10/2022 16:12:09 12/10/1912/10/2022 LIPID PANEL comment: AGRICULTURAL ADVISER Not Available [facility] ([facility]) [address] [facility], [place], [address], 12/10/2022 16:12:09 12/10/1912/10/2022 RHEUM ATOID FACTO R (RF) rheumatoid factor (rf) 24.2 IU/mL <14.0 above high normal Not Available [facility] ([facility]) [address] [facility], [place], [address], 12/10/2022 16:12:10 12/10/1912/10/2022 TSH RFX ON ABNOR MAL TO FREE T4 TSH 1.680 uIU/m L 0.450- 4.500 Not Available [facility] ([facility]) [address] [facility], [place], [address], 12/10/2022 16:12:11 12/10/1912/10/2022 ANTIN UCLEA R AB MULTI PLEX RFX 9 ELADIO direct NEGATI VE negati ve Not Available [facility] ([facility]) [address] [facility], [place], [address], 12/10/2022 16:12:12 12/10/1912/10/2022 SEDIM ENTAT ION RATE- WESTE RGREN sedimentatio n rate-westerg cesilia 7 mm/HR 0-40 Not Available [facility] ([facility]) [address] [facility], [place], [address], 12/10/2022 16:12:13 12/10/19 23 12/10/2022 C-YOEL CTIVE PROTE IN, QUANT C-reactive protein, quant 1 mg/L 0-10 Not Available [facility] ([facility]) [address] [facility], [place], [address], 12/10/2022 16:12:14 11/11/19 21 tibia /fibu la 2 vws, left [facility] [address] [place] [address] Patien t Name: JANET WAGNER Access ion #: [id number] Sex: F : 1955 2 Locati on: RA2 Attend ing Physic ismael: ELKHAT IB, RUNDA Orderi ng Physic ismael: ELKHAT IB, RUNDA Exam Date: [...] is recomm ended Page 1 of 2 [facility] Patien t Name: JANET WAGNER Access ion #: [id number] Sex: F : 1955 2 Exam Date: [...] AM (CT) Page 2 of 2 [facility]. [facility] (Imaging) [address] [place], [address], 04/28/2022 08:25:10 11/11/19 21 11/10/2020 XR, tibia + fibul a No observ ation record ed. MIGRATION. [facility] [address] [place], [address], 04/28/2022 08:25:10 07/15/19 22 07/13/2021 XR, elbow No observ ation record ed. MIGRATION. [address], [place], [address], 04/28/2022 08:25:10 11/20/19 22 11/19/2021 XR, chest , 2 view No observ ation record ed. MIGRATION. [address] [facility] [address] [place], [address], 04/28/2022 08:25:10 03/03/19 23 03/03/2022 imagi ng/di agnos tic resul t No observ ation record ed. MIGRATION. [facility] [address] [place], [address], 04/28/2022 08:25:10 05/08/19 23 05/04/2022 PFT, compl ete No observ ation record ed. [email or web address] Not Available 2022 09:03:20 06/03/19 23 06/01/2022 imagi ng/di agnos tic resul t No observ ation record ed. [address], [place], [address], 06/02/2022 08:34:41 06/12/19 23 05/04/2022 PFT, compl ete No observ ation record ed. [email or web address] Not Available 2022 13:11:06 07/08/19 23 06/29/2022 CT, chest , w/o contr ast No observ ation record ed. [address]: Pulmonology 1 [facility], [place], [address], 07/07/2022 15:34:58 08/10/19 23 08/09/2022 XR, chest , 2 view No observ ation record ed. [address], [place], [address], 08/09/2022 14:32:03 08/12/19 23 08/10/2022 US, doppl er echoc ardio gram No observ ation record ed. [address], [place], [address], 08/12/2022 08:24:20 08/13/1908/12/2022 XR, chest , 2 view No observ ation record ed. [address], [place], [address], 08/12/2022 10:20:03 08/13/19 23 08/11/2022 XR, chest , 2 view No observ ation record ed. [address], [place], [address], 08/12/2022 11:24:33 08/13/19 23 08/11/2022 imagi ng/di agnos tic resul t No observ ation record ed. [email or web address] [facility] [address], [place], [address], 08/13/2022 10:30:22 12/22/19 23 12/21/2022 US, gallb ladde r No observ ation record ed. [email or web address] [facility] [address], [place], [address], 12/21/2022 12:01:19 02/03/20 23 02/02/2023 XR, ribs, unila teral , w/ PA chest No observ ation record ed. [email or web address], [place], [address], 03/10/2023 13:02:15 02/03/20 23 02/02/2023 XR, ribs, unila teral , w/ PA chest No observ ation record ed. [email or web address] [facility] [address], [place], [address], 03/10/2023 13:02:15 02/03/20 23 02/02/2023 XR, ribs, unila teral , w/ PA chest No observ ation record ed. [email or web address] [facility] [address], [place], [address], 02/12/2023 10:24:15 07/22/19 24 07/22/2023 XR, chest No observ ation record ed. [email or web address] [facility] [address], [place], [address], 07/26/2023 14:35:50 Result Notes None recorded. Problems Name Problem SNOMED Code Status Onset Date Resolution Date Notes Provider Name and Address Organization Details Recorded Time Malignant neoplasm of breast 968772910 Active 2018 Not Available [employer] 03/01/202 3 08:22:11 Anxiety 10065131 Active 2018 Not Available [facility] 3 08:22:11 COVID-19 610870143 Active 2019 Not Available [facility] 3 08:22:11 Right upper quadrant pain 216268807 Active 2022 Ruddy Hobson MD [address], [place], [address] , [employer] 3 12:02:57 Pain of multiple joints 81419989 Active 2022 Ruddy Hobson MD [address], [place], [address] , [employer] 3 12:06:22 Mixed hyperlipid emia 350800720 Active 2022 Ruddy Hobson MD [address], [place], [address] , [employer] 3 12:08:17 Right lateral elbow tendinopat hy 6449336624896 07 Active 2022 Ruddy Hobson MD [address], [place], [address] , [employer] 3 12:09:07 Chronic abdominal pain 029373594 Active 2022 Ruddy Hobson MD [address], [place], [address] , [employer] 3 10:44:28 Rib pain 218750290 Active 2022 CHICO Blevins [address], [place], [address] , [employer] 3 13:08:04 Problem Notes None recorded. Procedures Surgical History Date Name Laterality Status Provider Name and Address Organization Details Recorded Time 07/30/19 23 Pacemaker completed Melisa Wang CMA [place] [employer] [facility] el? [facility] 12/08/2022 11:43:00 Dilation and curettage completed Not Available [facility] 04/28/2022 08:19:06 ligation of fallopian tube completed Not Available [facility] 04/28/2022 08:19:06 Tonsillectomy completed Not Available [facility] 04/28/2022 08:19:06 partial substernal thyroidectomy completed Not Available [facility] 04/28/2022 08:19:06 Nipple exploration completed Not Available [facility] 04/28/2022 08:19:06 lumpectomy of breast completed Not Available [facility] 04/28/2022 08:19:06 Imaging Results None recorded. Procedure Notes None recorded. Medical Equipment None Reported. Allergies Allergen ID Allergen Name Allergen Category Reaction Reaction Severity Criticality Documentation Date Start Date Code Code System Note Provider Name and Address Organization Details Recorded Time Product containin g penicilli n (product) medicatio n Not available Not available Not available 04/28/2022 61346 8001 SNOMED Not Available [facility] 3 08:25:05 73004 codeine medicatio n Not available Not available Not available 04/28/2022 2670 RxNorm Not Available [facility] 3 08:25:05 38234 azithromy milena medicatio n diarrhea Not available Not available 04/28/2022 44833 RxNorm Not Available [facility] 3 08:25:05 Medications Name Sig Start Date [...] mass index (BMI) Body height Oxygen saturation Heart rate Body temperature Body weight Systolic And Diastolic Provider Name and Address Organization Details Last Updated DateTime 2 27.1 kg/m2 162.56 cm 94 % 76 /min 97.7 [degF] 67428.5 9 g 138/86 mm[Hg] Not Available [facility] 3 08:21:34 Date Recorded Body mass index (BMI) Body height Oxygen saturation Heart rate Body temperature Body weight Systolic And Diastolic Provider Name and Address Organization Details Last Updated DateTime 2 26.6 kg/m2 162.56 cm 96 % 61 /min 98 [degF] 53891.8 2 g 122/80 mm[Hg] Not Available [facility] 3 08:21:34 Date Recorded Body mass index (BMI) Body height Oxygen saturation Heart rate Body temperature Body weight Systolic And Diastolic Provider Name and Address Organization Details Last Updated DateTime 1 26.6 kg/m2 162.56 cm 98 % 52 /min 96.8 [degF] 18378.8 2 g 150/80 mm[Hg] Not Available [facility] 3 08:21:34 Date Recorded Body weight Body mass index (BMI) Body height Body temperature Heart rate Oxygen saturation Systolic And Diastolic Provider Name and Address Organization Details Last Updated DateTime 3 20500.3 7 g 27.6 kg/m2 162.56 cm 97.2 [degF] 78 /min 96 % 136/82 mm[Hg] CAIO Arora - [facility] 3 11:46:22 Date Recorded Body height Body mass index (BMI) Body weight Body temperature Heart rate Oxygen saturation Systolic And Diastolic Provider Name and Address Organization Details Last Updated DateTime 3 162.56 cm 26.8 kg/m2 14994.4 1 g 97.5 [degF] 96 /min 95 % 134/72 mm[Hg] Joelle Rangel MA [facility] 12:49:15 Social History Question Answer Notes LastModified by Organizat ion Details LastModified Time Tobacco Smoking Status Former Smoker Anisha Velázquez cherie [facility] 01/31/2023 12:27:14 Do You Have An Advance Directive? Yes [id number] Information not available 04/28/2022 Do You Wear A Helmet When Biking? Yes [email or web address] Information not available 01/31/2023 Are You Blind Or Do You Have Difficulty Seeing? No [email or web address] Information not available 01/31/2023 What Is Your Level Of Caffeine Consumption? Occasional [id number] Information not available 04/28/2022 What Is Your Code Status? Other [email or web address] Information not available 01/31/2023 In The 14 Days Before Symptom Onset, Have You Had Close Contact With A Laboratory-confir med COVID-19 While That Case Was Ill? No Information not available 01/31/2023 In The 14 Days Before Symptom Onset, Have You Had Close Contact With A Person Who Is Under Investigation For COVID-19 While That Person Was Ill? No [email or web address] Information not available 01/31/2023 Are You Deaf Or Do You Have Serious Difficulty Hearing? No [email or web address] Information not available 01/31/2023 What Type Of Diet Are You Following? REGULAR [id number] Information not available 04/28/2022 Have There Been Any Changes To Your Family Or Social Situation? No [email or web address] Information no t available 01/31/2023 What Is The Fluoride Status Of Your Home? Unknown [email or web address] Information not available 01/31/2023 Where Do You Live? [facility] [email or web address] Information not available 01/31/2023 Do You Have A Medical Power Of Healthcare Advisory Services Manager? Yes [email or web address] Information not available 01/31/2023 What Was The Date Of Your Most Recent Tobacco Screening? 11/10/2020 [email or web address] Information not available 01/31/2023 Have You Ever Been Counseled For Unhealthy Alcohol Use? No [email or web address] Information not available 01/31/2023 Do You Have Any Pets? No Information not available 01/31/2023 Do You Use Your Seat Belt Or Car Seat Routinely? Yes [email or web address] Information not available 01/31/2023 Do You Have Smoke And Carbon Monoxide Detectors In Your Home? Yes [email or web address] Information not available 01/31/2023 Are You Passively Exposed To Smoke? No [email or web address] Information no t available 01/31/2023 Are There Any Smokers In Your House? No [email or web address] Information not available 01/31/2023 How Much Tobacco Do You Smoke? 0.5 PPD [id number] Information not available 04/28/2022 Has Tobacco Cessation Counseling Been Provided? No [email or web address] Information not available 01/31/2023 How Many Years Have You Smoked Tobacco? 17 [email or web address] Information not available 01/31/2023 Have You Recently Traveled Abroad? No [email or web address] Information not available 01/31/2023 Do You Have Difficulty Walking Or Climbing Stairs? No [email or web address] Information not available 01/31/2023 Are You Currently In School? No [email or web address] Information not available 01/31/2023 Do You Have Any Dietary Restrictions? No [email or web address] Information not available 01/31/2023 Sex: Unknown Functional Status Question Answer Note LastModified by Organizat ion Details LastModified Time Do you use any illicit or recreational drugs? No [email or web address] Information not available 01/31/2023 Do you or have you ever used any other forms of tobacco or nicotine? No Information not available 01/31/2023 What is your level of alcohol consumption? Occasional [id number] Information not available 04/28/2022 Do you have transportation difficulties? No [email or web address] Information not available 01/31/2023 Are you able to walk independently without assistance or assistive devices? YESWOREST [email or web address] Information not available 01/31/2023 Do you have difficulty doing errands alone? No [email or web address] Information not available 01/31/2023 Are you able to care for yourself independently? Yes [email or web address] Information not available 01/31/2023 Do you have difficulty dressing, bathing, grooming, or toileting? No [email or web address] Information not available 01/31/2023 What is your exercise level? None [id number].[id number] 026 Information not available 04/28/2022 Mental Status Question Answer Note LastModified by Organization D etails LastModified Time Do you have difficulty concentrating, remembering or making decisions? No [email or web address] Information no t available 01/31/2023 Family History Relationship Description Onset Age of this Age Resolved Age Notes LastModified by Organization Details LastModified Time Mother Congestive heart failure [id number] Not available 04/28/2022 08:19:10 Maternal Grandfather Malignant neoplasm of liver MIGRATION.147 [id number] Not available 04/28/2022 08:19:10 Brother Malignant neoplasm of liver MIGRATION.097 [id number] Not available 04/28/2022 08:19:10 Brother Malignant melanoma MIGRATION.178 [id number] Not available 04/28/2022 08:19:10 Maternal Grandmother Congestive heart failure [id number].386 [id number] Not available 04/28/2022 08:19:10 Medical History No medical history recorded. Gynecological HistoryNo gynecological history recorded. Obstetrics History GPAL:G 0 P 0 0 0 0 Past Encounters Encounter ID Performer Location Encounter Start Date Encounter Closed Date Diagnosis/Indication Diagnosis SNOMED-CT Code Diagnosis ICD10 Code Diagnosis IMO Codes Diagnosis Note [id number] Ruddy Hobson MD [facility] [place] [address] [facility] [place] [address] [address] 08/20/2020 00:00:00 08/21/2020 06:15:59 [id number] Ruddy Hobson MD [facility] Lucia llrupinder [facility] [place] [address] [address] 11/10/2020 00:00:00 11/10/2020 10:35:15 [id number] Ruddy Hobson MD [facility] [place] [address] 04/30/2021 00:00:00 04/30/2021 19:40:05 [id number] Ruddy Hobson MD [facility] [place] [facility] [place] [address] [address] 06/08/2021 00:00:00 06/08/2021 21:43:39 [id number] [address] [facility] [address] [facility] [place] [address] 12/08/2022 11:36:11 12/08/2022 12:21:27 Right upper quadrant pain 316356734 R10.11 Pain of mu ltiple joints 58481200 M25.50 Thyroid di sorder screening 914757717 Z13.29 Hyperlipid emia screening 473019945 Z13.220 Right late ral elbow tendinopathy 1266272494 64889 M77.11 Tennis elbow strap. [id number] Ruddy Hobson MD [facility] [address] [facility] [place] [address] 01/31/2023 12:25:24 01/31/2023 13:12:05 Rib pain 882038072 R07.81 Chronic ab dominal pain 174522024 R10.9 insurance will not okay the CT of abdomen unless ordered with contrast . US of jennifer r was normal; negative Novak's sign Health Concerns Section Related Observation LastModified by Organization Detai ls LastModified Time None Recorded Concern Status LastModified by Organization Details LastModified Time None Recorded Advance Directives Directive Y: Payers Insurance Date Sequence Insurance Name Policy Number Policy Hernandez Covered Member ID Hernandez Member ID Guarantor Name 02/24/2023 1 [employer] (MEDICARE REPLACEMENT /ADVANTAGE - PPO) [id number] 1 Janet L Ursprung [id number] Janet L Ursprung Notes Date Note Type [...] RA or lupus Ruddy Hobson MD [address] [address], [place], [address], [employer] 12/09/2022 06:58:06 01/31/2023 text/html ROS as noted in the HPI right rib lower rib pain, no trauma [facility] Blevins [address] [facility], [place], [address], [employer] 02/12/2023 10:27:16 OBGyn Episode No OBEpisode recorded.
--- OUTSIDE RECORDS SUMMARY | 2025-02-21 13:45 | XMS_ITS | Encounter Summary ---
Author Organization [facility] Address [address] [place] [address] Care Team Providers Care Return To Vendor Name Role Phone Ruddy Hobson MD Primary Care Provider [phone] Encounter Details Date Type Department Care Team (Late st Contact Info) Description 02/17/1998 Outpatient [facility] Primary Care [address] [place] [address] Bernard Ferguson, DO * Social History Tobacco Use Types Packs/Day Years Used Date Smoking Tobacco: Never Assessed Comments Unknown Sex and Gender Information Value Date Recorded Sex Assigned at Not on file Legal Sex Female 3:53 AM INVESTIGATIONS DIRECTOR Gender Identity Not on file Sexual Orientation Not on file documented as of this encounter Plan of Treatment Not on file documented as of this encounter Visit Diagnoses Not on filedocumented in this encounter Care Teams Return To Vendor Relationship Specialty Start Date End Date Ruddy Hobson MD PCP - General Family Practice 02/09/19 documented as of this encounter
--- OUTSIDE RECORDS SUMMARY | 2025-02-21 13:45 | XMS_ITS | Clinical Summary ---
Author Organization [facility] Address [facility] [place] [address] Care Team Providers Care Back Tender Cylinder Name Role Phone Ruddy Vasques MD Primary Care Provider [phone] Allergies Active Allergy Reactions Criticality Noted Date Comments Codeine Hives,Nausea and Vom iting,Nausea Only,Rash Low 09/10/2008 Penicillins Diarrhea,Nausea and Vomiting,Shortness of Breath High 09/10/2008 Medications losartan (COZAAR) 100 MG tablet losartan 100 mg tablet 07/13/2021 Active Vitamin D3, cholecalciferol , 2000 UNIT Tab tablet Active magnesium oxide (MAG-OX) 250 MG tablet Take 1 tablet (250 mg total) by mouth daily. Active spironolactone (ALDACTONE) 25 MG tablet 11/26/2021 Active Aspirin 81 MG Cap 06/18/2022 Active rivaroxaban (XARELTO) 20 MG Tab tablet Take by mouth daily with supper. Take with food Active Active Problems Problem Noted Date Diagnosed Date Chronic cough 01/08/2022 EVAN (obstructive sleep apnea) 01/08/2022 Family History Medical History Relation Comments Cancer Brother 1 liver cancer Cancer Brother 2 melanoma Cancer Maternal Grandfather liver cance r Heart Disease Maternal Grandmother Bypass Heart Disease Mother Congestive heart failure Relation Status Comments Brother 1 Brother 2 Maternal Grandfather Maternal Grandmother Mother Social History Tobacco Use Types Packs/Day Years Used Date Smoking Tobacco: Former Cigarettes 0.5 20 0 10/10/1985 - 10/10/2005 Smokeless Tobacco: Never Tobacco Cessation:Counseling Given: Yes Alcohol Use Standard Drinks/Week Comments Yes 16.7 (1 standard drink = 0.6 oz pure alcohol) PHQ-2 Answer Date Recorded Patient Health Questionnaire-2 Score 0 10/15/2022 Comments Unknown Sex and Gender Information Value Date Recorded Sex Assigned at Not on file Legal Sex Female 1:12 PM INTERNAL REVENUE SERVICE AGENT Gender Identity Not on file Sexual Orientation Not on file Last Filed Vital Signs Vital Sign Reading Time Taken Comments Blood Pressure 127/73 10/15/2022 8:25 AM CDT Pulse 73 10/15/2022 8:25 AM CDT Temperature 36.3 C (97.3 F) 10/15/2022 8:25 AM CDT Respiratory Rate 12 10/15/2022 8:25 AM CDT Oxygen Saturation 93% 10/15/2022 8:25 AM CDT Inhaled Oxygen Concentration - - Weight 72.6 kg (160 lb) 10/15/2022 8:25 AM CDT Height 162.6 cm (5' 4) 10/15/2022 8:25 AM CDT Body Mass Index 27.46 10/15/2022 8:25 AM CDT Plan of Treatment Health Maintenance Due Date Last Done Comments Colorectal Cancer Screening Colonoscopy (10 Years) 1954 Hepatitis C 1972 DTaP, Tdap and Td Vaccines ( 1 - Tdap) 1973 Mammogram Screening 1994 Pneumococcal Vaccine: 50+ Years (1 of 1 - PCV) 2004 Zoster Vaccines (1 of 2) 2004 Annual Medicare Wellness Visit 11/23/2019 Dexa Scan (General) 11/23/2019 PHQ-2 (Physician [place]) 02/29/2024 COVID-19 Vaccine (3 - 2024-2 6 season) 2024 05/17/2020, 04/26/2020 Influenza Adult (#1) 2024 RSV Immunization or 60+ Years (1 - 1-dose 75+ series) 2029 Hepatitis A Vaccines Aged Out No long er eligible based on patient's age to complete this topic Meningococcal B Vaccine Aged Out No l onger eligible based on patient's age to complete this topic Meningococcal Vaccine Aged Out No byron venkatesh eligible based on patient's age to complete this topic RSV Immunizations Under 20 Months Aged Out No longer eligible b ased on patient's age to complete this topic Insurance [employer]ET[employer] MEDICARE Care Teams Back Tender Cylinder Relationship Specialty Start Date End Date Ruddy Vasques MD [address] [place] [address] PCP - General FAMILY PRACTICE 11/13/21
--- OUTSIDE RECORDS SUMMARY | 2025-02-21 13:45 | XMS_ITS | Encounter Summary ---
Author Organization [facility] Healthcare Address [address] [place] [address] Care Team Providers Care Dining Room Busser Name Role Phone Erika Marinelli NP Primary Care Provider [phone] Rosmery Cardoso MD Unavailable [phone] Thomas Gonsales MD Unavailable [phone] Jesse Monterroso MD Unavailable [phone] Encounter Details Date Type Department Care Team (Latest Contact Info) Description 01/22/2025 Results Follow-Up [facility] Primary Care at [place] [address] [place] [address] Erika Marinelli NP [address] [place] [address] [address] [place] [address] Vaginitis panel Vaginal, CBC with auto differential, Comprehensive metabolic panel, Additional followed-up results: 7 Social History Tobacco Use Types Packs/Day Years Used Date Smoking Tobacco: Former Cigarettes 0.5 15 Q uit: 10/10/2005 Smokeless Tobacco: Never Alcohol Use Standard Drinks/Week Comments Yes 14 (1 standard drink = 0.6 oz pu re alcohol) PHQ-2 Answer Date Recorded PHQ-2 Total Score (If total score is 3 or more points, staff should administer the PHQ-9) 2 01/21/2025 Comments Unknown Sex and Gender Information Value Date Recorded Sex Assigned at Not on file Legal Sex Female 6:35 AM COMMERCIAL DRIVER Gender Identity Female 10/01/2019 4:34 PM CDT Sexual Orientation Choose not to disclose 2019 4:34 PM CDT documented as of this encounter Plan of Treatment Upcoming Encounters Date Type Department Care Team (Late st Contact Info) Description 03/06/2025 8:00 AM COMMERCIAL DRIVER Hospital Encounter [address] [address] Micky Olmos MD [address] [facility] [address] [place] [address] 03/06/2025 8:00 AM COMMERCIAL DRIVER Anesthesia Event [address] [address] Zhao Sanches, LAYO [address] [place] [address] 03/06/2025 8:00 AM COMMERCIAL DRIVER - 03/06/2025 9:00 AM COMMERCIAL DRIVER Surgery [address] [address] Micky Olmos MD [facility] [address] [address] COLONOSCOPY Scheduled Procedures Name Priority Associated Diagnoses Date/Ti me COLONOSCOPY Abnormal CT scan, colon Abnormal CT scan, esophagus 03/06/2025 8:00 AM COMMERCIAL DRIVER ESOPHAGOGASTRODUODENOSCOPY Abnormal CT scan, colon Abnormal CT scan, esophagus 03/06/2025 8:00 AM COMMERCIAL DRIVER documented as of this encounter Visit Diagnoses Not on filedocumented in this encounter Care Teams Dining Room Busser Relationship Specialty Start Date End Date Erika Marinelli NP [address] [place] [address] [address] [place] [address] PCP - General Family Medicine 09/15/23 Rosmery Cardoso MD [address] [place] [address] Consulting Physician General Surgery 09/15/23 Thomas Gonsales MD [address] [place] [address] Consulting Physician Interventional Cardiology 09/15/23 Jesse Monterroso MD [address] [facility] [address] [place] [address] Referring Physician Obstetrics and Gynecology 09/15/23 documented as of this encounter
--- OUTSIDE RECORDS SUMMARY | 2025-02-21 13:45 | XMS_ITS ---
Author Organization [facility] Administrative Offices Address [address] [place] [address] Care Team Providers Care Industrial Photographer Name Role Phone Ruddy Hobson MD Primary Care Provider [phone] Active Problems Patient Care Coordination No te Formatting of this note migh t be different from the original. Primary Care: Ruddy Hobson MD Referring Provider: Ruddy Hobson MD No address on file Other: Dr Evelyn Wiseman MD Problem Noted Date Diagnosed Date Cough 05/08/2009 Breast cancer 09/20/2008 Overview (03/03/2012): 09/21/07 Stage I ([id number]) IDC RIGHT breast TRIPLE NEGATIVE Ki67 36% S/p lumpectomy and SLND s/p TC x 4 03/21/08 Radiation complete 12/17/11 Bone scan - had left rib lateral shadow. PET scan in 3 months negative Assessment & Plan (03/23/2013 2:27 PM PRODUCTION MACHINE COMPUTER OPERATOR): 5 1/2 year out 3 months of back pain - told PCP but no workup sergio Sept Pain right ribs again T spine between scapulas - feels like rib Same as last yaer Assessment & Plan (09/22/2012 11:06 AM CDT): 5 years out PET in [place] in Oct ROV 1 year Assessment & Plan (03/03/2012 2:19 PM PRODUCTION MACHINE COMPUTER OPERATOR): 4 1/2 years out PET today negative [...] months Assessment & Plan (04/30/2011 2:38 PM PRODUCTION MACHINE COMPUTER OPERATOR): 3 1/2 years out Mammo in Nov [...] months Assessment & Plan (05/01/2010 3:34 PM PRODUCTION MACHINE COMPUTER OPERATOR): SAMe gave her bad dreams Bone scan and CTs negative (RML infiltrate) Had sinus infection, b/l ear infection - levoquin x 1 week Will cut SAMe in half ROV 6 months Assessment & Plan (04/10/2010 2:48 PM PRODUCTION MACHINE COMPUTER OPERATOR): 2 1/2 yrs out Hurts in scapulas, [...] ECHO stress test June 27 Mammogram in [place] BMD in August 2008 EGD August 2008 Saw pulmEsther Temple finished with trt DAYAN ROV 3 months with PET/CT and labs Rec Vit D 1999 Assessment & Plan (03/21/2009 2:54 PM PRODUCTION MACHINE COMPUTER OPERATOR): 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 EGD 09/05 negative Mammo 09/05 and today EMPHYSEMA - needs PFTs (last ones pre dx) - send to [facility] Very happy with [facility] imaging techs ROV 3 months Assessment & Plan (12/20/2008 2:36 PM CDT): PET negative in August. Taking care of mom in [place] PLAN: BrCA - ROV 3 months Mammogram [...]
--- OUTSIDE RECORDS SUMMARY | 2025-02-21 13:45 | XMS_ITS | Encounter Summary ---
Author Organization [facility] Address [address] [place] [address] Care Team Providers Care Cutter V Groove Name Role Phone Ruddy Hobson MD Primary Care Provider [phone] Encounter Details Date Type Department Care Team (Late st Contact Info) Description 06/30/1998 Outpatient [facility] Primary Care [address] [place] [address] Bernard Ferguson, DO * Social History Tobacco Use Types Packs/Day Years Used Date Smoking Tobacco: Never Assessed Comments Unknown Sex and Gender Information Value Date Recorded Sex Assigned at Not on file Legal Sex Female 3:53 AM PBX INSPECTOR Gender Identity Not on file Sexual Orientation Not on file documented as of this encounter Plan of Treatment Not on file documented as of this encounter Visit Diagnoses Not on filedocumented in this encounter Care Teams Cutter V Groove Relationship Specialty Start Date End Date Ruddy Hobson MD PCP - General Family Practice 02/09/19 documented as of this encounter
--- OUTSIDE RECORDS SUMMARY | 2025-02-21 13:45 | XMS_ITS | Clinical Summary ---
Author Organization [facility] Address [address] [place] [address] Care Team Providers Care Certified Alcohol Drug Counselor Name Role Phone Erika Marinelli Primary Care Provider [phone] Source Comments [facility] [employer],non-owned Affiliates and Associated Physician Practices is amultiple site organization consisting of ambulatory clinics and hospital sitesin [place], [place] and [place]. This disclosure is being madepursuant to the Care Everywhere program and may not contain all information available regarding this patient. Last updated 17.[facility] [employer] Allergies Active Allergy Reactions Criticality Noted Date [...] Cardiac pacemaker in situ 08/17/2022 Overview (04/24/2024): [employer]mob[employer]ik Edora Dual Pacemaker. Dx; Symptomatic Bradycardia, CHB. DOI 08/11/2022-Uppstrom. [employer]mobronik remote monitoring. 08/30/2022-New Onset Afib. JR Chronic cough 01/08/2022 EVAN (obstructive sleep apnea) 01/08/2022 COVID-19 02/24/2020 Anxiety 03/14/2018 Malignant neoplasm of breast 09/20/2008 Overview (04/24/2024): 09/21/07 Stage I ([id number]) IDC RIGHT breast TRIPLE NEGATIVE Ki67 36% [...] on file Legal Sex Female 9:38 AM ASSISTANT CHIEF ENGINEER Gender Identity Not on file Sexual Orientation Not on file Last Filed Vital Signs Vital Sign Reading Time Taken Comments Blood Pressure 140/73 04/24/2024 9:57 AM ASSISTANT CHIEF ENGINEER Pulse 69 04/24/2024 9:57 AM ASSISTANT CHIEF ENGINEER Temperature 36.3 C (97.3 F) 04/24/2024 9:57 AM ASSISTANT CHIEF ENGINEER Respiratory Rate - - Oxygen Saturation - - Inhaled Oxygen Concentration - - Weight 68.4 kg (150 lb 12.8 oz) 04/24/2024 9:57 AM ASSISTANT CHIEF ENGINEER Height 162.6 cm (5' 4) 04/24/2024 9:57 AM ASSISTANT CHIEF ENGINEER Body Mass Index 25.88 04/24/2024 9:57 AM ASSISTANT CHIEF ENGINEER Plan of Treatment Upcoming Encounters Date Type Department Care Team (Late st Contact Info) Description 04/25/2025 9:40 AM ASSISTANT CHIEF ENGINEER Appointment [facility] [address] [place] [address] 04/25/2025 10:00 AM ASSISTANT CHIEF ENGINEER Office Visit [facility] - Surgery [address] [place] [address], [address] [place] [address] Rosmery Cardoso MD [address] [place] [address] [address], [place] [address] Health Maintenance Due Date Last [...] 50+ (1 of 2 - PCV) 1973 Respiratory Syncytial Virus (RSV) Vaccine Pt: or over 60 yrs (1 - Risk 50-74 years 1-dose series) 2004 ZOSTER VACCINE (1 of 2) 2004 SCREENING FOR DIABETES 04/21/2023 DEPRESSION SCREENING 02/29/2024 MEDICARE AWV CALENDAR YEAR 2024 COLOGUARD (AGES 45-75) - COLON CA SCREENING 06/02/2024 06/02/2021 Colorectal Cancer Screening 06/02/2024 COVID-19 VACCINE (3 - 2024- season) 2024 05/17/2020, 04/26/2020 INFLUENZA VACCINE (#1) 2024 MAMMOGRAM 04/24/2026 04/24/2024, 04/01, 02/11/2022, Additional [...] SCREENING W SHAQUILLE Routine 04/24/2024 9:15 AM ASSISTANT CHIEF ENGINEER Encounter for screening mammogram for malignant neoplasm of breast from Last 3 Months or Most Recently Relevant to Health Maintenance Results * Mammo Bilat Screening W Shaquille (04/24/2024 9:15 AM ASSISTANT CHIEF ENGINEER) Anatomical Region Laterality Modality Breast Bilateral Mammography 04/24/2024 11:1 4 AM ASSISTANT CHIEF ENGINEER Impressions 04/24/2024 11:17 AM ASSISTANT CHIEF ENGINEER IMPRESSION: No mammographic evidence of malignancy in either breast. ASSESSMENT: BIRADS Category 2: Benign finding(s). RECOMMENDATION: Bilateral screening mammogram in one year. Thank you for allowing us to participate in the care of your patient. [facility] utilizes Ch[employer] as a reminder system to notify patients of their next recommended mammogram. > Interpreting Provider: Gloria Ann MD on 04/24/2024 11:17 AM Narrative 04/24/2024 11:17 AM ASSISTANT CHIEF ENGINEER EXAMINATION: Digital screening mammogram. Low-dose full-field digital [...] Maintenance Insurance AETNA MEDICARE ADV Care Teams Certified Alcohol Drug Counselor Relationship Specialty Start Date End Date Erika Marinelli [address] [id number] PCP - General 04/24/24
--- OUTSIDE RECORDS SUMMARY | 2025-02-21 13:45 | XMS_ITS | Encounter Summary ---
Author Organization [facility] Address [address] [place] [address] Care Team Providers Care Medical Billing Service Name Role Phone Ruddy Hobson MD Primary Care Provider [phone] Encounter Details Date Type Department Care Team (Late st Contact Info) Description 08/26/1998 Outpatient [facility] Primary Care [address] [place] [address] Bernard Ferguson, DO * Social History Tobacco Use Types Packs/Day Years Used Date Smoking Tobacco: Never Assessed Comments Unknown Sex and Gender Information Value Date Recorded Sex Assigned at Not on file Legal Sex Female 3:53 AM HAND BRAILLE TRANSCRIBER Gender Identity Not on file Sexual Orientation Not on file documented as of this encounter Plan of Treatment Not on file documented as of this encounter Visit Diagnoses Not on filedocumented in this encounter Care Teams Medical Billing Service Relationship Specialty Start Date End Date Ruddy Hobson MD PCP - General Family Practice 02/09/19 documented as of this encounter
--- OUTSIDE RECORDS SUMMARY | 2025-02-21 13:45 | XMS_ITS | Encounter Summary ---
Author Organization [facility] Address [address] [place] [address] Care Team Providers Care Caretaker Grounds Name Role Phone Ruddy Hobson MD Primary Care Provider [phone] Encounter Details Date Type Department Care Team (Late st Contact Info) Description 09/25/1998 Outpatient [facility] Primary Care [address] [place] [address] Bernard Ferguson, DO * Social History Tobacco Use Types Packs/Day Years Used Date Smoking Tobacco: Never Assessed Comments Unknown Sex and Gender Information Value Date Recorded Sex Assigned at Not on file Legal Sex Female 3:53 AM BARREL LEVELER Gender Identity Not on file Sexual Orientation Not on file documented as of this encounter Plan of Treatment Not on file documented as of this encounter Visit Diagnoses Not on filedocumented in this encounter Care Teams Caretaker Grounds Relationship Specialty Start Date End Date Ruddy Hobson MD PCP - General Family Practice 02/09/19 documented as of this encounter
--- OUTSIDE RECORDS SUMMARY | 2025-02-21 13:45 | XMS_ITS | Encounter Summary ---
Author Organization [facility] Address [address] [place] [address] Care Team Providers Care Picc Nurse Name Role Phone Ruddy Hobson MD Primary Care Provider [phone] Encounter Details Date Type Department Care Team (Late st Contact Info) Description 10/20/1998 Outpatient [facility] Primary Care [address] [place] [address] Bernard Ferguson, DO * Social History Tobacco Use Types Packs/Day Years Used Date Smoking Tobacco: Never Assessed Comments Unknown Sex and Gender Information Value Date Recorded Sex Assigned at Not on file Legal Sex Female 3:53 AM MEDICAL PROGRAM SPECIALIST Gender Identity Not on file Sexual Orientation Not on file documented as of this encounter Plan of Treatment Not on file documented as of this encounter Visit Diagnoses Not on filedocumented in this encounter Care Teams Picc Nurse Relationship Specialty Start Date End Date Ruddy Hobson MD PCP - General Family Practice 02/09/19 documented as of this encounter
--- OUTSIDE RECORDS SUMMARY | 2025-02-21 13:45 | XMS_ITS | Encounter Summary ---
Author Organization [facility] Address 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
--- OUTSIDE RECORDS SUMMARY | 2025-02-21 13:45 | XMS_ITS | Encounter Summary ---
Author Organization [facility] Address [address] [place] [address] Care Team Providers Care Access Database Developer Name Role Phone Erika Marinelli NP Primary Care Provider [phone] Rosmery Cardoso MD Unavailable [phone] Thomas Gonsales MD Unavailable [phone] Jesse Monterroso MD Unavailable Reason for Visit * Reason Onset Date Comments Blood in Urine 12/14/2024 Encounter Details Date Type Department Care Team (Late st Contact Info) Description 12/14/2024 Nurse Triage [facility] Primary Care at [address] [address] Erika Marinelli NP [address] [place] [address] [address] [place] [address] Social History Tobacco Use Types Packs/Day Years Used Date Smoking Tobacco: Former Cigarettes 0.5 15 Q uit: 10/10/2005 Smokeless Tobacco: Never Alcohol Use Standard Drinks/Week Comments Yes 14 (1 standard drink = 0.6 oz pu re alcohol) PHQ-2 Answer Date Recorded PHQ-2 Total Score (If total score is 3 or more points, staff should administer the PHQ-9) 0 11/26/2024 Comments Unknown Sex and Gender Information Value Date Recorded Sex Assigned at Not on file Legal Sex Female 6:35 AM CORE SHAPER Gender Identity Female 10/01/2019 4:34 PM CDT Sexual Orientation Choose not to disclose 2019 4:34 PM CDT documented as of this encounter Miscellaneous Notes * Telephone Encounter - Rody Kemp RN - 12/14/2024 8:53 AM CDT Reason for Conversation Blood in Urine Background Patient had blood in urine multiple times this morning denies back pain, but has burning when urinating. Patient had multiple episodes of clots in urine this morning but now urine is clear. Sending patient to urgent care due to blood clots in urine and on eliquis. Patient denies fever. Disposition Go to Office Now Reason for Disposition Taking Coumadin (warfarin) or other strong blood thinner, or known bleeding disorder (e.g., thrombocytopenia) No Initial Assessment on file. No Additional Information on file. Protocols Used Urine - Blood In-Adult-[place] * Telephone Encounter - Rody Kemp RN - 12/14/2024 8:41 AM CDT Regarding: blood in urine and burning when urinating ----- Message from Vita Dasilva sent at 12/14/2024 8:05 AM CDT ----- Symptom Based Call Chief Complaint(s): blood in urine and burning when urinating Duration: since last Tuesday. What type of symptom(s) is the patient experiencing? Non-Emergent. Is this a new or reoccurring symptom(s)? New What have you tried to help your symptom(s)? She did go to urgent care last Tuesday. Why was appointment not scheduled? Appointment availability did not meet the patient's need. Additional Comments: patient said that she did have a urine culture at urgent care and no infection. She was feeling better until last night and now she feels worse. Please advise and thank you so much. Does message need to be routed? Yes-Action Needed documented in this encounter Plan of Treatment Upcoming Encounters Date Type Department Care Team (Late st Contact Info) Description 03/06/2025 8:00 AM CORE SHAPER Hospital Encounter [address] [address] Micky Olmos MD [address] [address] 03/06/2025 8:00 AM CORE SHAPER Anesthesia Event [address] [address] Zhao Sanches, PROFESSOR OF PATHOLOGY [address] [place] [address] 03/06/2025 8:00 AM CORE SHAPER - 03/06/2025 9:00 AM CORE SHAPER Surgery [address] [address] Micky Olmos MD [address] [place] [address] COLONOSCOPY Scheduled Procedures Name Priority Associated Diagnoses Date/Ti me COLONOSCOPY Abnormal CT scan, colon Abnormal CT scan, esophagus 03/06/2025 8:00 AM CORE SHAPER ESOPHAGOGASTRODUODENOSCOPY Abnormal CT scan, colon Abnormal CT scan, esophagus 03/06/2025 8:00 AM CORE SHAPER documented as of this encounter Visit Diagnoses Not on filedocumented in this encounter Care Teams Access Database Developer Relationship Specialty Start Date End Date Erika Marinelli LINUX SOLARIS ADMINISTRATOR [address] [place] [address] PCP - General Family Medicine 09/15/23 Rosmery Cardoso MD [address] [place] [address] [place] [address] Consulting Physician General Surgery 09/15/23 Thomas Gonsales MD [address] [address] [place] [address] Consulting Physician Interventional Cardiology 09/15/23 Jesse Monterroso MD [address] [address] Referring Physician Obstetrics and Gynecology 09/15/23 documented as of this encounter
--- OUTSIDE RECORDS SUMMARY | 2025-02-21 13:45 | XMS_ITS | Encounter Summary ---
Author Organization [facility] Address [address] [place] [address] Care Team Providers Care Toxics Program Officer Name Role Phone Ruddy Hobson MD Primary Care Provider [phone] Encounter Details Date Type Department Care Team (Late st Contact Info) Description 09/20/2008 Outpatient [facility], [address] Edna Hanson MD [address] [place] [address] [place] [address] Malignant Neoplasm of Breast (Female), Unspecified Site (CMS/HCC) Social History Tobacco Use Types Packs/Day Years Used Date Smoking Tobacco: Former Cigarettes 0 Q uit: 10/11/2005 Alcohol Use Standard Drinks/Week Comments Yes 0 (1 standard drink = 0.6 oz pur e alcohol) moderate Comments No Sex and Gender Information Value Date Recorded Sex Assigned at Not on file 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
--- OUTSIDE RECORDS SUMMARY | 2025-02-21 13:45 | XMS_ITS | Clinical Summary ---
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 PET scan in 3 months negative Assessment & Plan (03/23/2013 2:27 PM DIRECTOR CLINICAL RESEARCH): 5 1/2 year out 3 months of back pain - told PCP but no workup sergio Sept Pain right ribs again T spine between scapulas - feels like rib Same as last yaer Assessment & Plan (09/22/2012 11:06 AM CDT): 5 years out PET in [place] in Oct ROV 1 year Assessment & Plan (03/03/2012 2:19 PM DIRECTOR CLINICAL RESEARCH): 4 1/2 years out PET today negative [...] months Assessment & Plan (04/30/2011 2:38 PM DIRECTOR CLINICAL RESEARCH): 3 1/2 years out Mammo in Nov [...] months Assessment & Plan (05/01/2010 3:34 PM DIRECTOR CLINICAL RESEARCH): SAMe gave her bad dreams Bone scan and CTs negative (RML infiltrate) Had sinus infection, b/l ear infection - levoquin x 1 week Will cut SAMe in half ROV 6 months Assessment & Plan (04/10/2010 2:48 PM DIRECTOR CLINICAL RESEARCH): 2 1/2 yrs out Hurts in scapulas, [...] 1999 Assessment & Plan (03/21/2009 2:54 PM DIRECTOR CLINICAL RESEARCH): 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 EGD 09/05 negative Mammo 09/05 and today EMPHYSEMA - needs PFTs (last ones pre dx) - send to [facility] Very happy with [facility] imaging techs ROV 3 months Assessment & Plan (12/20/2008 2:36 PM CDT): PET negative in August. Taking care of mom in [place] PLAN: BrCA - ROV 3 months Mammogram [...] Date Resolved Date Nipple discharge 10/18/2016 11/12/2016 Family History Medical History Relation Name Comments [...] on file Legal Sex Female 3:53 AM DIRECTOR CLINICAL RESEARCH Gender Identity Not on file Sexual Orientation Not on file Occupation Industry Job Start Date Job End Date Not on file Not on file Not on file Not on file Not on file Not on file Not on file Not on file Last Filed Vital Signs Vital Sign Reading Time Taken Comments Blood Pressure 126/84 02/11/2022 11:20 AM DIRECTOR CLINICAL RESEARCH Pulse 67 02/11/2022 11:20 AM DIRECTOR CLINICAL RESEARCH Temperature 37 C (98.6 F) 02/11/2022 11:20 AM DIRECTOR CLINICAL RESEARCH Respiratory Rate 16 08/12/2020 9:26 AM CDT Oxygen Saturation 96% 02/11/2022 11:20 AM DIRECTOR CLINICAL RESEARCH Inhaled Oxygen Concentration - - Weight 72.1 kg (159 lb) 02/11/2022 11:20 AM DIRECTOR CLINICAL RESEARCH Height 162.6 cm (5' 4) 02/11/2022 11:20 AM DIRECTOR CLINICAL RESEARCH Body Mass Index 27.29 02/11/2022 11:20 AM DIRECTOR CLINICAL RESEARCH Plan of Treatment Health Maintenance Due Date Last Done Comments DTAP/TDAP/TD VACCINES (1 - Tdap) 1973 PNEUMOCOCCAL VACCINE 50+ YEA RS (1 of 2 - PCV) 1973 COLORECTAL SCREENING 11/23/1999 Colorectal Cancer Screening 11/23/1999 FIT-DNA Q 3 years 11/23/1999 FIT/FOBT Q 1 year 11/23/1999 Flex Sig/CT Colonography Q 5 years 11/23/1999 RSV VACCINE (60+ or ) (1 - Risk 50-74 years 1-dose series) 2004 ZOSTER VACCINE (1 of 2) 2004 OSTEOPOROSIS SCREENING 11/23/2019 BREAST CANCER SCREENING 04/21/2024 04/21/19 24, 04/21/2023, 02/11/2022, Additional history exists INFLUENZA VACCINE (#1) 2024 COVID-19 Vaccine (3 - 2024-2 6 season) 2024 05/17/2020, 04/26/2020 Medical Devices Implanted Type Area Superintendent Quarry Device Identifier Shelf Expiration Date Model / Serial / Lot Hemostatic Surgicel 2x3in 1952 [place] [facility] [place] [id number] Implanted:Qty : 1 on 10/28/2016 by Rosmery Cardoso MD at [facility] Hemostatic Right: Breast [employer] 06/27/20173 / / [id number] Hemostatic Surgicel 2x3in 1953 - [id number] Implanted:Qty : 1 on 05/02/2020 by Evelyn Wiseman MD at [facility] Hemostatic Right: Breast [employer] [id number] 04/28/20231952 / / [id number] Procedures Procedure Name Priority Date/Time Associated Diagnosis Comments MAMMO 3D WALDO DIAGNOSTIC BILAT W OR WO CAD Routine 02/11/2022 10:32 AM DIRECTOR CLINICAL RESEARCH History of breast cancer from Last 3 Months or Most Recently Relevant to Health Maintenance Results * MAMMO DIAG BILAT 3D WALDO W OR WO CAD (02/11/2022 10:32 AM DIRECTOR CLINICAL RESEARCH) Anatomical Region Laterality Modality Breast Bilateral Mammography 02/11/2022 10:3 2 AM DIRECTOR CLINICAL RESEARCH Impressions 02/11/2022 12:11 PM DIRECTOR CLINICAL RESEARCH IMPRESSION: No suspicious findings to suggest malignancy in either breast. Annual mammography is recommended. OVERALL FINAL ASSESSMENT: BI-RADS CATEGORY 2 - Benign findings. Narrative 02/11/2022 12:11 PM DIRECTOR CLINICAL RESEARCH EXAM: BILATERAL DIAGNOSTIC DIGITAL MAMMOGRAM WITH 3D TOMOSYNTHESIS AND CAD DATE: 02/11/2022 10:32 AM HISTORY: Personal history of breast cancer with prior right breast conservation therapy. DICTATION LOCATION: [facility] TECHNIQUE: Mediolateral oblique, mediolateral and craniocaudal views [...] prior right breast conservation therapy. DICTATION LOCATION: [facility] TECHNIQUE: Mediolateral oblique, mediolateral and craniocaudal views [...] to Health Maintenance Insurance [employer] PPO MCR Advance Directives For more information, please contact: [phone] * Full Code (Latest Code Status on File) Date Activated Date Inactivated Comments 05/02/2020 8:10 AM 05/02/2020 11:38 AM Care Teams Supervisor Powdered Sugar Relationship Specialty Start Date End Date Ruddy Hobson MD PCP - General Family Practice 02/09/19
--- OUTSIDE RECORDS SUMMARY | 2025-02-21 13:45 | XMS_ITS | Encounter Summary ---
Author Organization [facility] Address 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
--- OUTSIDE RECORDS SUMMARY | 2025-02-21 13:45 | XMS_ITS | Encounter Summary ---
Author Organization [facility] Address [address] [place] [address] Care Team Providers Care Master Naval Parachutist Name Role Phone Ruddy Vasques MD Primary Care Provider [phone] Encounter Details Date Type Department Care Team (Late st Contact Info) Description 08/25/2022 MyChart Message [facility] [address] [place] [address] [facility] Provider Air Quality Message Social History Tobacco Use Types Packs/Day Years Used Date Smoking Tobacco: Former Cigarettes 0.5 20 0 10/10/1985 - 10/10/2005 Smokeless Tobacco: Never Alcohol Use Standard Drinks/Week Comments Yes 16.7 (1 standard drink = 0.6 oz pure alcohol) PHQ-2 Answer Date Recorded Patient Health Questionnaire-2 Score 0 06/11/2022 Comments Unknown Sex and Gender Information Value Date Recorded Sex Assigned at Not on file Legal Sex Female 1:12 PM NON CATEGORICAL PRESCHOOL TEACHER Gender Identity Not on file Sexual Orientation Not on file documented as of this encounter Plan of Treatment Not on file documented as of this encounter Visit Diagnoses Not on filedocumented in this encounter Care Teams Master Naval Parachutist Relationship Specialty Start Date End Date Ruddy Vasques MD [address] [address] PCP - General FAMILY PRACTICE 11/13/21 documented as of this encounter
--- OUTSIDE RECORDS SUMMARY | 2025-02-21 13:45 | XMS_ITS | Encounter Summary ---
Author Organization [facility] Address [address] [place] [address] Care Team Providers Care Auto Parker Name Role Phone Ruddy Hobson MD Primary Care Provider Encounter Details Date Type Department Care Team (Late st Contact Info) Description 06/19/2008 Outpatient Historical [facility] Edna Lamb MD [address] [place] [address] [place] [phone] Malignant Neoplasm of Breast (Female), Unspecified Site (CMS/HCC) Social History Tobacco Use Types Packs/Day Years Used Date Smoking Tobacco: Never Assessed Comments Unknown Sex and Gender Information Value Date Recorded Sex Assigned at Not on file 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 [place], [place] [address] Admit Date: 06/19/2008 JANET MCKINNON Sex: F Admit Prov: EDNA LAMB Date: 1955 Primary Care Prov: CMRN: [id number] [facility]: [id number] IMAGING SERVICES Ordering Prov: N/A Accession Number: [id number] Interpretation BONE SCAN, WHOLE BODY 06/19/2008 History: [...] Procedure Note Sabrina Haley MD - 06/20/2008 [facility] [address] [place], [place] [address] Admit Date: 06/19/2008 JANET MCKINNON Sex: F Admit Prov: EDNA LAMB Date: 1955 Primary Care Prov: CMRN: [id number] [id number] [facility] Ordering Prov: N/A Interpretation BONE [...] site documented in this encounter Care Teams Auto Parker Relationship Specialty Start Date End Date Ruddy Hobson MD PCP - General Family Practice 02/09/19 documented as of this encounter
--- OUTSIDE RECORDS SUMMARY | 2025-02-21 13:45 | XMS_ITS | Encounter Summary ---
Author Organization [facility] Healthcare Address [address] [place] [address] Care Team Providers Care Dry Roaster Name Role Phone Erika Marinelli NP Primary Care Provider [phone] Rosmery Cardoso MD Unavailable [phone] Thomas Gonsales MD Unavailable [phone] Jesse Monterroso MD Unavailable Encounter Details Date Type Department Care Team (Late st Contact Info) Description 01/29/2025 Results Follow-Up [facility] [place] [address] [place] [address] Erika Marinelli NP [address] [place] [address] [address] [place] [address] CT Urogram W Contrast No 3D Social History Tobacco Use Types Packs/Day Years [...] on file Legal Sex Female 6:35 AM TORPEDO SPECIALIST Gender Identity Female 10/01/2019 4:34 PM CDT Sexual Orientation Choose not to disclose 2019 4:34 PM CDT documented as of this encounter Plan of Treatment Upcoming Encounters Date Type Department Care Team (Late st Contact Info) Description 03/06/2025 8:00 AM TORPEDO SPECIALIST Hospital Encounter [address] [address] Micky Olmos MD [address] [facility] [address] [place] [address] 03/06/2025 8:00 AM TORPEDO SPECIALIST Anesthesia Event [address] [address] Zhao Sanches, ORDER ENTRY ADMINISTRATOR [address] [place] [address] 03/06/2025 8:00 AM TORPEDO SPECIALIST - 03/06/2025 9:00 AM TORPEDO SPECIALIST Surgery [address] [address] Micky Olmos MD [facility] [address] [address] COLONOSCOPY Scheduled Procedures Name Priority Associated Diagnoses Date/Ti me COLONOSCOPY Abnormal CT scan, colon Abnormal CT scan, esophagus 03/06/2025 8:00 AM TORPEDO SPECIALIST ESOPHAGOGASTRODUODENOSCOPY Abnormal CT scan, colon Abnormal CT scan, esophagus 03/06/2025 8:00 AM TORPEDO SPECIALIST documented as of this encounter Visit Diagnoses Not on filedocumented in this encounter Care Teams Dry Roaster Relationship Specialty Start Date End Date Erika Marinelli NP [address] [place] [address] PCP - General Family Medicine 09/15/23 Rosmery Cardoso MD [address] [place] [address] Consulting Physician General Surgery 09/15/23 Thomas Gonsales MD [address] [place] [address] Consulting Physician Interventional Cardiology 09/15/23 Jesse Monterroso MD [address] [facility] [address] [address] Referring Physician Obstetrics and Gynecology 09/15/23 documented as of this encounter
--- OUTSIDE RECORDS SUMMARY | 2025-02-21 13:45 | XMS_ITS | Encounter Summary ---
Author Organization [facility] Address [address] [facility] [address] [place] [address] Phone Care Team Providers Care Primary Care Md Name Role Phone Erika Marinelli NP Primary Care Provider [phone] Rosmery Cardoso MD Unavailable [phone] Thomas Gonsales MD Unavailable [phone] Jesse Monterroso MD Unavailable Encounter Details Date Type Department Care Team (Late st Contact Info) Description 02/18/2025 Results Follow-Up [facility] Medicine Physicians [facility] Surgery [address] [place] [address] [address] [place] [address] Gabbi Hudson MD [address] [facility] [place] [address] Cytology Social History Tobacco Use Types Packs/Day Years Used Date Smoking Tobacco: Former Cigarettes 0.5 15 Q uit: 10/10/2005 Smokeless Tobacco: Never Alcohol Use Standard Drinks/Week Comments Not Currently [...] on file Legal Sex Female 6:35 AM MIDDLE SCHOOL GUIDANCE COUNSELOR Gender Identity Female 10/01/2019 4:34 PM CDT Sexual Orientation Choose not to disclose 2019 4:34 PM CDT documented as of this encounter Plan of Treatment Upcoming Encounters Date Type Department Care Team (Late st Contact Info) Description 03/06/2025 8:00 AM MIDDLE SCHOOL GUIDANCE COUNSELOR Hospital Encounter [address] [address] Micky Olmos MD [address] [place] [address] 03/06/2025 8:00 AM MIDDLE SCHOOL GUIDANCE COUNSELOR Anesthesia Event [address] [address] Zhao Sanches, ANGLE DOZER OPERATOR [address] [place] [address] 03/06/2025 8:00 AM MIDDLE SCHOOL GUIDANCE COUNSELOR - 03/06/2025 9:00 AM MIDDLE SCHOOL GUIDANCE COUNSELOR Surgery [address] [address] Micky Olmos MD [address] [place] [address] COLONOSCOPY Scheduled Procedures Name Priority Associated Diagnoses Date/Ti me COLONOSCOPY Abnormal CT scan, colon Abnormal CT scan, esophagus 03/06/2025 8:00 AM MIDDLE SCHOOL GUIDANCE COUNSELOR ESOPHAGOGASTRODUODENOSCOPY Abnormal CT scan, colon Abnormal CT scan, esophagus 03/06/2025 8:00 AM MIDDLE SCHOOL GUIDANCE COUNSELOR documented as of this encounter Visit Diagnoses Not on filedocumented in this encounter Care Teams Primary Care Md Relationship Specialty Start Date End Date Erika Marinelli NP [address] [phone] PCP - General Family Medicine 09/15/23 Rosmery Cardoso MD [address] [place] [address] Consulting Physician General Surgery 09/15/23 Thomas Gonsales MD [address] [place] [address] Consulting Physician Interventional Cardiology 09/15/23 Jesse Monterroso MD [address] [address] Referring Physician Obstetrics and Gynecology 09/15/23 documented as of this encounter
--- OUTSIDE RECORDS SUMMARY | 2025-02-21 13:45 | XMS_ITS | Encounter Summary ---
Author Organization [facility] Address [address] [place] [address] Care Team Providers Care Kier Drier Name Role Phone Ruddy Hobson MD Primary Care Provider [phone] Encounter Details Date Type Department Care Team (Late st Contact Info) Description 06/16/1998 Outpatient [facility] Primary Care [address] [place] [address] Bernard Ferguson, DO * Social History Tobacco Use Types Packs/Day Years Used Date Smoking Tobacco: Never Assessed Comments Unknown Sex and Gender Information Value Date Recorded Sex Assigned at Not on file Legal Sex Female 3:53 AM MANAGER SOCIAL MEDIA Gender Identity Not on file Sexual Orientation Not on file documented as of this encounter Plan of Treatment Not on file documented as of this encounter Visit Diagnoses Not on filedocumented in this encounter Care Teams Kier Drier Relationship Specialty Start Date End Date Ruddy Hobson MD PCP - General Family Practice 02/09/19 documented as of this encounter
--- OUTSIDE RECORDS SUMMARY | 2025-02-21 13:45 | XMS_ITS | Encounter Summary ---
Author Organization [facility] Address [address] [place] [address] Care Team Providers Care Card Writer Hand Name Role Phone Ruddy Hobson MD Primary Care Provider [phone] Encounter Details Date Type Department Care Team (Late st Contact Info) Description 04/17/1998 Outpatient [facility] Primary Care [address] [place] [address] Bernard Ferguson, DO * Social History Tobacco Use Types Packs/Day Years Used Date Smoking Tobacco: Never Assessed Comments Unknown Sex and Gender Information Value Date Recorded Sex Assigned at Not on file Legal Sex Female 3:53 AM MANUFACTURING ASSOCIATE Gender Identity Not on file Sexual Orientation Not on file documented as of this encounter Plan of Treatment Not on file documented as of this encounter Visit Diagnoses Not on filedocumented in this encounter Care Teams Card Writer Hand Relationship Specialty Start Date End Date Ruddy Hobson MD PCP - General Family Practice 02/09/19 documented as of this encounter
== END 2025-02-21 14:09 | disposition home or self-care (01) ==
PROVIDERS: Emergency Medicine; Emergency Provider Student in an Organized Health Care Education/Training Program; PCP Nurse Practitioner Family
DX: R07.9 Chest pain, unspecified (principal); Z95.0 Presence of cardiac pacemaker; I73.9 Peripheral vascular disease, unspecified; G47.30 Sleep apnea, unspecified; Z85.3 Personal history of malignant neoplasm of breast; E03.9 Hypothyroidism, unspecified; F41.9 Anxiety disorder, unspecified; I10 Essential (primary) hypertension; J44.9 Chronic obstructive pulmonary disease, unspecified
CPT/HCPCS: 36415; 71046; 80053; 83690; 84484; 85025; 85610; 85730; 93005; 99284